=== PATIENT | female | born 1975 | race Hispanic/Latino ===

== ENCOUNTER 2018-03-19 16:44 | Observation (INO) | payer BC ==
--- OUTSIDE RECORDS SUMMARY | 2018-03-19 16:46 | XMS REPORT ---
:1975 [facility] Address [address] [place] [address] Care Team Providers Name Role Phone MICHAEL SHELLEY Unavailable Unavailable HASMUKH AMNRIQUEZ Unavailable Unavailable Problems This patient has no known problems. Allergies, Adverse Reactions, Alerts This patient has no known allergies or adverse reactions. Medications This patient has no known medications. Results Test Description Test Time Test Comments Text Results Atomic Results Result Comments CREATINE KINASE (CK), TOTAL AND MB 2016-07-02 14:51:00 Test Item Value Reference Range Comments CREATINE KINASE TOTAL (BEAKER) (test klkn=383) 38 U/L 29-200 CREATINE KINASE-MB (BEAKER) (test wjzh=627) 0.4 ng/mL 0.0-6.6 CREATINE KINASE-MB INDEX (BEAKER) (test ihcb=931) 1.1 % Effective 03/29/2014: CK-MB Reference Range ChangeNew: 0.0-6.6 Previous: 0.0- 4.9CK-MB Reference Range:<6.7 Normal6.7-10.0 Borderline>10.0 AbnormalTROPONIN [id number] 14:51:00 Test Item Value Reference Range Comments TROPONIN I (BEAKER) (test frqe=444) 0.01 ng/mL 0.00-0.03 Effective 03/29/2014: Reference Range ChangeNew: 0.00-0.03 Previous 0.00- 0.15Troponin I (TnI) levels must be interpreted in the context of the presenting symptoms and the clinical findings. Elevated TnI levels indicate myocardial damage, but are not specific for ischemic heart disease. Elevated TnI levels are seen in patients with other cardiac conditions (including myocarditis and congestive heartfailure), and slight TnI elevations occur in patients with other conditions, including sepsis, renalfailure, acidosis, acute neurological disease, and persistent tachyarrhythmia.URINALYSIS W/ [id number] 11:14:00 Test Item Value Reference Range Comments COLOR (BEAKER) (test khwy=251) Yellow CLARITY (BEAKER) (test agvb=608) Hazy SPECIFIC GRAVITY UA (BEAKER) (test 1.023 1.001-1.035 xohy=116) PH UA (BEAKER) (test wlaa=138) 6.5 5.0-8.0 PROTEIN UA (BEAKER) (test usqx=770) 10 mg/dL Negative GLUCOSE UA (BEAKER) (test qrsa=519) Negative Negative KETONES UA (BEAKER) (test oafg=184) Negative Negative BILIRUBIN UA (BEAKER) (test puhk=644) Negative Negative BLOOD UA (BEAKER) (test azns=820) Negative Negative NITRITE UA (BEAKER) (test pbkq=014) Negative Negative LEUKOCYTE ESTERASE UA (BEAKER) (test Negative Negative hmmd=157) UROBILINOGEN UA (BEAKER) (test ghzs=090) 12.0 mg/dL 0.2-1.0 RBC UA (BEAKER) (test kjax=574) 2 /HPF WBC UA (BEAKER) (test hbmf=720) 2 /HPF MUCUS (BEAKER) (test kkfs=6078) Occasional SQUAMOUS EPITHELIAL (BEAKER) (test 3 /HPF dxgz=211) SOURCE(BEAKER) (test akgg=5000) Urine, Clean Catch BASIC METABOLIC [id number] 11:05:00 Test Item Value Reference Range Comments SODIUM (BEAKER) (test 136 meq/L 136-145 fsch=995) POTASSIUM (BEAKER) (test 3.8 meq/L 3.5-5.1 zmwk=531) CHLORIDE (BEAKER) (test 101 meq/L 98-107 zafw=971) CO2 (BEAKER) (test 24 meq/L 22-29 freb=796) BLOOD UREA NITROGEN 11 mg/dL 7-21 (BEAKER) (test vxtz=483) CREATININE (BEAKER) (test 0.63 mg/dL 0.57-1.25 jofe=497) GLUCOSE RANDOM (BEAKER) 96 mg/dL 70-105 (test ovme=133) CALCIUM (BEAKER) (test 9.2 mg/dL 8.4-10.2 eimo=506) EGFR (BEAKER) (test mL/min/1.73 sq m INSUFFICIENT CLINICAL DATA hebd=1414) TO CALCULATE ESTIMATED GFR. CBC W/PLT COUNT & AUTO [id number] 11:00:00 Test Item Value Reference Range Comments WHITE BLOOD CELL COUNT (BEAKER) (test heth=055) 10.7 K/ L 4.0-10.0 RED BLOOD CELL COUNT (BEAKER) (test wudk=761) 4.80 M/ L 4.00-5.00 HEMOGLOBIN (BEAKER) (test ksgw=169) 13.3 GM/DL 12.0-15.0 HEMATOCRIT (BEAKER) (test qjjj=764) 42.6 % 36.0-45.0 MEAN CORPUSCULAR VOLUME (BEAKER) (test azwq=022) 88.9 fL 82.0-99.0 MEAN CORPUSCULAR HEMOGLOBIN (BEAKER) (test 27.7 pg 27.0-33.0 fvef=076) MEAN CORPUSCULAR HEMOGLOBIN CONC (BEAKER) (test 31.1 GM/DL 32.0-36.0 rbiq=336) RED CELL DISTRIBUTION WIDTH (BEAKER) (test 13.1 % 10.3-14.2 zuwm=534) PLATELET COUNT (BEAKER) (test atub=228) 233 K/CU MM 150-430 MEAN PLATELET VOLUME (BEAKER) (test xtdc=673) 7.8 fL 6.5-10.5 NUCLEATED RED BLOOD CELLS (BEAKER) (test 0 /100 WBC 0-0 vqzm=331) NEUTROPHILS RELATIVE PERCENT (BEAKER) (test 77 % iuzx=380) LYMPHOCYTES RELATIVE PERCENT (BEAKER) (test 14 % avcv=253) MONOCYTES RELATIVE PERCENT (BEAKER) (test 8 % tfao=679) EOSINOPHILS RELATIVE PERCENT (BEAKER) (test 1 % sqyj=927) BASOPHILS RELATIVE PERCENT (BEAKER) (test 0 % iuhr=824) NEUTROPHILS ABSOLUTE COUNT (BEAKER) (test 8.24 K/ L 1.80-8.00 vwqw=749) LYMPHOCYTES ABSOLUTE COUNT (BEAKER) (test 1.47 K/ L 1.48-4.50 hrif=840) MONOCYTES ABSOLUTE COUNT (BEAKER) (test 0.88 K/ L 0.00-1.30 zcwv=748) EOSINOPHILS ABSOLUTE COUNT (BEAKER) (test 0.08 K/ L 0.00-0.50 myja=434) BASOPHILS ABSOLUTE COUNT (BEAKER) (test 0.00 K/ L 0.00-0.20 dprf=739) [id number] 10:58:00 Test Item Value Reference Range Comments LIPASE (BEAKER) (test gahr=534) 9 U/L 8-78 PLATELET AGGREGATION: FUNCTION [id number] 10:10:00 Test Item Value Reference Range Comments WEAK ADP RESULT(BEAKER) (test < % 60-91 amhs=1317) PLATELET FUNCTION SCREEN 0-39% indicates marked platelet INTERP (BEAKER) (test dysfunction pdru=7464) [id number] Lauryn Lopez MD (electronic (BEAKER) (test pvid=6390) signature) PLATELET COUNT AGG (BEAKER) 198 K/CU MM 150-430 (test aodn=4724) Platelet Function Screen results may be falsely low with platelet counts<100, 000/cu mm.BASIC METABOLIC [id number] 08:10:00 Test Item Value Reference Range Comments SODIUM (BEAKER) (test 136 meq/L 136-145 ribv=378) POTASSIUM (BEAKER) (test 3.7 meq/L 3.5-5.1 vlde=994) CHLORIDE (BEAKER) (test 104 meq/L 98-107 jijo=573) CO2 (BEAKER) (test 24 meq/L 22-29 rjni=733) BLOOD UREA NITROGEN 14 mg/dL 7-21 (BEAKER) (test ezyk=322) CREATININE (BEAKER) (test 0.57 mg/dL 0.57-1.25 tspn=059) GLUCOSE RANDOM (BEAKER) 95 mg/dL 70-105 (test agkl=050) CALCIUM (BEAKER) (test 8.2 mg/dL 8.4-10.2 ecgt=631) EGFR (BEAKER) (test mL/min/1.73 sq m INSUFFICIENT CLINICAL DATA ppbs=6532) TO CALCULATE ESTIMATED GFR. [id number] 07:54:00 Test Item Value Reference Range Comments MAGNESIUM (BEAKER) (test exet=385) 2.0 mg/dL 1.6-2.6 HEMOGLOBIN AND [id number] 06:43:00 Test Item Value Reference Range Comments HEMOGLOBIN (BEAKER) (test hxoq=950) 11.8 GM/DL 12.0-15.0 HEMATOCRIT (BEAKER) (test arqr=648) 34.9 % 36.0-45.0 HEMOGLOBIN AND [id number] 13:04:00 Test Item Value Reference Range Comments HEMOGLOBIN (BEAKER) (test mviu=694) 11.9 GM/DL 12.0-15.0 HEMATOCRIT (BEAKER) (test omfq=473) 34.8 % 36.0-45.0 PLATELET AGGREGATION: FUNCTION [id number] 11:13:00 Test Item Value Reference Range Comments WEAK ADP < % 60-91 This is a corrected RESULT(BEAKER) (test result. Previous acih=3311) result was 0 % on 06/28/2016 at 0429 RN EMERGENCY ROOM PLATELET FUNCTION 0-39% indicates marked SCREEN INTERP (BEAKER) platelet dysfunction (test fbei=2663) [id number] Dinah Calvo MD (BEAKER) (test (electronic signature) whwm=8603) PLATELET COUNT AGG 188 K/CU MM 150-430 (BEAKER) (test hgzm=4641) PLATELET AGGREGATION: DRUG [id number] 10:56:00 Test Item Value Reference Range Comments STRONG ADP RESULT(BEAKER) (test < % 70-94 rbfu=8645) WEAK ADP RESULT(BEAKER) (test < % 60-91 hjwi=2052) ARACHADONIC ACID RESULT(BEAKER) < % 63-89 (test oyej=4365) PLATELET AGG DRUG INTERPRETATION Decreased response to ADP (BEAKER) (test itni=1501) suggest a A6G35-dqkzmbadt drug effect. PLATELET AGG DRUG INTERPRETATION Decreased response to (BEAKER) (test xxcb=504432) arachidonic acid suggests aspirin-like effect. [id number] (BEAKER) Dinah Calvo MD (test jfjb=5378) (electronic signature) PLATELET COUNT AGG (BEAKER) 153 K/CU MM 150-430 (test rpjb=5649) LIPID [id number] 04:11:00 Test Item Value Reference Range Comments TRIGLYCERIDES (BEAKER) (test qkfu=570) 95 mg/dL CHOLESTEROL (BEAKER) (test hiem=450) 149 mg/dL HDL CHOLESTEROL (BEAKER) (test gmzm=212) 36 mg/dL LDL CHOLESTEROL CALCULATED (BEAKER) (test 94 mg/dL bcio=174) Triglyceride Reference Range: Low Risk <150 Borderline 150- 199 High Risk 200-499 Very High Risk >=500Cholesterol Reference Range: Low Risk <200 Borderline 200-239 High Risk > 240HDL Cholesterol Reference Range: Low Risk >=60 High Risk <40LDL Cholesterol Reference Range: Optimal <100 Near Optimal 100-129 Borderline 130-159 High 160-189 Very High >=190BASIC METABOLIC [id number] 04:11:00 Test Item Value Reference Range Comments SODIUM (BEAKER) (test 137 meq/L 136-145 aqyl=927) POTASSIUM (BEAKER) (test 3.5 meq/L 3.5-5.1 dxfg=233) CHLORIDE (BEAKER) (test 105 meq/L 98-107 tdeq=865) CO2 (BEAKER) (test 24 meq/L 22-29 agxx=696) BLOOD UREA NITROGEN 11 mg/dL 7-21 (BEAKER) (test uthk=394) CREATININE (BEAKER) (test 0.53 mg/dL 0.57-1.25 ragq=063) GLUCOSE RANDOM (BEAKER) 102 mg/dL 70-105 (test gvfz=196) CALCIUM (BEAKER) (test 8.0 mg/dL 8.4-10.2 rhye=783) EGFR (BEAKER) (test mL/min/1.73 sq m INSUFFICIENT CLINICAL DATA yard=0773) TO CALCULATE ESTIMATED GFR. HEMOGLOBIN AND [id number] 03:55:00 Test Item Value Reference Range Comments HEMOGLOBIN (BEAKER) (test nckg=375) 11.3 GM/DL 12.0-15.0 HEMATOCRIT (BEAKER) (test jgmg=275) 33.3 % 36.0-45.0 HEMOGLOBIN AND [id number] 18:31:00 Test Item Value Reference Range Comments HEMOGLOBIN (BEAKER) (test 11.4 GM/DL 12.0-15.0 jtlo=378) HEMATOCRIT (BEAKER) (test 34.7 % 36.0-45.0 This is a corrected result. qqyq=200) Previous result was 14.4 % on 06/27/2016 at 1826 RN EMERGENCY ROOM CBC W/PLT COUNT & AUTO [id number] 15:32:00 Test Item Value Reference Range Comments WHITE BLOOD CELL COUNT (BEAKER) (test rtgd=564) 10.6 K/ L 4.0-10.0 RED BLOOD CELL COUNT (BEAKER) (test pemg=442) 4.11 M/ L 4.00-5.00 HEMOGLOBIN (BEAKER) (test lzfl=077) 12.5 GM/DL 12.0-15.0 HEMATOCRIT (BEAKER) (test buod=091) 36.5 % 36.0-45.0 MEAN CORPUSCULAR VOLUME (BEAKER) (test ogwo=211) 88.8 fL 82.0-99.0 MEAN CORPUSCULAR HEMOGLOBIN (BEAKER) (test 30.3 pg 27.0-33.0 caed=900) MEAN CORPUSCULAR HEMOGLOBIN CONC (BEAKER) (test 34.2 GM/DL 32.0-36.0 xdrj=744) RED CELL DISTRIBUTION WIDTH (BEAKER) (test 12.8 % 10.3-14.2 uupo=713) PLATELET COUNT (BEAKER) (test nxvd=527) 208 K/CU MM 150-430 MEAN PLATELET VOLUME (BEAKER) (test azic=613) 8.4 fL 6.5-10.5 NUCLEATED RED BLOOD CELLS (BEAKER) (test 0 /100 WBC 0-0 rsuf=776) NEUTROPHILS RELATIVE PERCENT (BEAKER) (test 70 % akbz=684) LYMPHOCYTES RELATIVE PERCENT (BEAKER) (test 24 % gobt=325) MONOCYTES RELATIVE PERCENT (BEAKER) (test 5 % vecf=446) EOSINOPHILS RELATIVE PERCENT (BEAKER) (test 0 % fpdz=554) BASOPHILS RELATIVE PERCENT (BEAKER) (test 0 % qnky=234) NEUTROPHILS ABSOLUTE COUNT (BEAKER) (test 7.45 K/ L 1.80-8.00 eqjm=445) LYMPHOCYTES ABSOLUTE COUNT (BEAKER) (test 2.59 K/ L 1.48-4.50 xrcf=755) MONOCYTES ABSOLUTE COUNT (BEAKER) (test 0.53 K/ L 0.00-1.30 xfoy=583) EOSINOPHILS ABSOLUTE COUNT (BEAKER) (test 0.04 K/ L 0.00-0.50 lwyr=991) BASOPHILS ABSOLUTE COUNT (BEAKER) (test 0.02 K/ L 0.00-0.20 zjpn=455) 0.00PLATELET AGGREGATION: FUNCTION [id number] 12:55:00 Test Item Value Reference Range Comments WEAK ADP < % 60-91 This is a corrected RESULT(BEAKER) (test result. Previous qzbk=6728) result was 0 % on 06/27/2016 at 1051 RN EMERGENCY ROOM PLATELET FUNCTION 0-39% indicates marked SCREEN INTERP (BEAKER) platelet dysfunction (test inho=1910) [id number] Dinah Calvo MD (BEAKER) (test (electronic signature) ubfx=9399) PLATELET COUNT AGG 228 K/CU MM 150-430 (BEAKER) (test ixgy=3259) HEMOGLOBIN [id number] 12:00:00 Test Item Value Reference Range Comments HEMOGLOBIN A1C (BEAKER) (test svgp=917) 5.2 % 4.3-6.1 HEMOGLOBIN AND [id number] 11:24:00 Test Item Value Reference Range Comments HEMOGLOBIN (BEAKER) (test tzmp=309) 11.9 GM/DL 12.0-15.0 HEMATOCRIT (BEAKER) (test jgkv=991) 35.0 % 36.0-45.0 POTASSIUM-STAT [id number] 07:54:00 Test Item Value Reference Range Comments POTASSIUM (BEAKER) (test nokc=578) 3.6 meq/L 3.6-5.5 HGB/HCT (H&H) - STAT [id number] 07:54:00 Test Item Value Reference Range Comments HEMOGLOBIN (BEAKER) (test kfyk=394) 12.3 g/dL 12.0-15.0 HEMATOCRIT (BEAKER) (test lrcr=378) 36.0 % 36.0-45.0 CBC (HEMOGRAM ONLY)2016-06-27 04:09:00 Test Item Value Reference Range Comments WHITE BLOOD CELL COUNT (BEAKER) (test azzq=953) 8.7 K/ L 4.0-10.0 RED BLOOD CELL COUNT (BEAKER) (test lknt=588) 1.78 M/ L 4.00-5.00 HEMOGLOBIN (BEAKER) (test dcvb=885) 5.4 GM/DL 12.0-15.0 HEMATOCRIT (BEAKER) (test pkwa=741) 16.1 % 36.0-45.0 MEAN CORPUSCULAR VOLUME (BEAKER) (test hjns=551) 90.7 fL 82.0-99.0 MEAN CORPUSCULAR HEMOGLOBIN (BEAKER) (test 30.6 pg 27.0-33.0 ryib=078) MEAN CORPUSCULAR HEMOGLOBIN CONC (BEAKER) (test 33.7 GM/DL 32.0-36.0 xctm=997) RED CELL DISTRIBUTION WIDTH (BEAKER) (test 12.9 % 10.3-14.2 dwjd=042) PLATELET COUNT (BEAKER) (test izpc=678) 186 K/CU MM 150-430 MEAN PLATELET VOLUME (BEAKER) (test llya=434) 8.1 fL 6.5-10.5 NUCLEATED RED BLOOD CELLS (BEAKER) (test 0 /100 WBC 0-0 cmpy=885) 0.00BASIC METABOLIC [id number] 03:49:00 Test Item Value Reference Range Comments SODIUM (BEAKER) (test 138 meq/L 136-145 dtek=858) POTASSIUM (BEAKER) (test 3.4 meq/L 3.5-5.1 wgwq=361) CHLORIDE (BEAKER) (test 112 meq/L 98-107 oynf=816) CO2 (BEAKER) (test 18 meq/L 22-29 anpb=009) BLOOD UREA NITROGEN 13 mg/dL 7-21 (BEAKER) (test xsqv=937) CREATININE (BEAKER) (test 0.59 mg/dL 0.57-1.25 fmwi=713) GLUCOSE RANDOM (BEAKER) 125 mg/dL 70-105 (test meda=486) CALCIUM (BEAKER) (test 7.1 mg/dL 8.4-10.2 lcwt=650) EGFR (BEAKER) (test mL/min/1.73 sq m INSUFFICIENT CLINICAL DATA lrhg=8715) TO CALCULATE ESTIMATED GFR. TSH/FREE T4 IF [id number] 03:31:00 Test Item Value Reference Range Comments THYROID STIMULATING HORMONE (BEAKER) (test 1.53 uIU/mL 0.35-4.94 holn=607) POTASSIUM-STAT [id number] 03:28:00 Test Item Value Reference Range Comments POTASSIUM (BEAKER) (test jmqs=179) 3.2 meq/L 3.6-5.5 [id number] 03:24:00 Test Item Value Reference Range Comments PROTIME (BEAKER) (test idyl=550) 25.6 seconds 11.7-14.7 INR (BEAKER) (test tqbr=655) 2.3 <=5.9 PARTIAL THROMBOPLASTIN TIME (BEAKER) (test 40.3 seconds 22.5-36.0 zths=822) RECOMMENDED COUMADIN/WARFARIN INR THERAPY RANGESSTANDARD DOSE: 2.0 - 3.0 Includes: PROPHYLAXIS forvenous thrombosis, systemic embolization; TREATMENT for venous thrombosis and/or pulmonary embolus.HIGH RISK: Target INR is 2.5-3.5 for patients with mechanical heart valves. SCREEN, [id number] 03: 13:00 Test Item Value Reference Range Comments TEST URINE (BEAKER) (test oala=433) Negative HGB/HCT (H&H) - STAT [id number] 03:04:00 Test Item Value Reference Range Comments HEMOGLOBIN (BEAKER) (test mxed=427) 8.0 g/dL 12.0-15.0 HEMATOCRIT (BEAKER) (test sutq=226) 24.0 % 36.0-45.0 [id number] 20:07:00 Test Item Value Reference Range Comments ACTIVATED CLOTTING TIME 239 sec TESTED AT [address] ([facility]) (test uzfp=726) [facility] [id number] 20:01:00 Test Item Value Reference Range Comments ACTIVATED CLOTTING TIME 307 sec TESTED AT [address] ([facility]) (test qked=163) [facility] [address] CREATINE KINASE (CK), TOTAL AND [id number] 19:15:00 Test Item Value Reference Range Comments CREATINE KINASE TOTAL (BEAKER) (test umun=565) 38 U/L 29-200 CREATINE KINASE-MB (BEAKER) (test roly=612) 0.9 ng/mL 0.0-6.6 CREATINE KINASE-MB INDEX (BEAKER) (test epel=987) 2.4 % Effective 03/29/2014: CK-MB Reference Range ChangeNew: 0.0-6.6 Previous: 0.0- 4.9CK-MB Reference Range:<6.7 Normal6.7-10.0 Borderline>10.0 AbnormalTROPONIN [id number] 19:15:00 Test Item Value Reference Range Comments TROPONIN I (BEAKER) (test oupd=456) 0.01 ng/mL 0.00-0.03 Effective 03/29/2014: Reference Range ChangeNew: 0.00-0.03 Previous 0.00- 0.15Troponin I (TnI) levels must be interpreted in the context of the presenting symptoms and the clinical findings. Elevated TnI levels indicate myocardial damage, but are not specific for ischemic heart disease. Elevated TnI levels are seen in patients with other cardiac conditions (including myocarditis and congestive heartfailure), and slight TnI elevations occur in patients with other conditions, including sepsis, renalfailure, acidosis, acute neurological disease, and persistent tachyarrhythmia.BASIC METABOLIC [id number] 19:14:00 Test Item Value Reference Range Comments SODIUM (BEAKER) (test 137 meq/L 136-145 qtnv=504) POTASSIUM (BEAKER) (test 3.6 meq/L 3.5-5.1 tjam=704) CHLORIDE (BEAKER) (test 106 meq/L 98-107 perb=059) CO2 (BEAKER) (test 21 meq/L 22-29 xpvu=489) BLOOD UREA NITROGEN 10 mg/dL 7-21 (BEAKER) (test xmzb=623) CREATININE (BEAKER) (test 0.60 mg/dL 0.57-1.25 pueh=058) GLUCOSE RANDOM (BEAKER) 106 mg/dL 70-105 (test byip=365) CALCIUM (BEAKER) (test 8.7 mg/dL 8.4-10.2 gqra=696) EGFR (BEAKER) (test mL/min/1.73 sq m INSUFFICIENT CLINICAL DATA xabw=5963) TO CALCULATE ESTIMATED GFR. B-TYPE NATRIURETIC FACTOR (BNP)2016-06-26 19:12:00 Test Item Value Reference Range Comments B-TYPE NATRIURETIC PEPTIDE (BEAKER) (test qdvv=298) 20 pg/mL 0-100 [id number] 19:07:00 Test Item Value Reference Range Comments MAGNESIUM (BEAKER) (test hqmy=104) 1.9 mg/dL 1.6-2.6 [id number] 18:53:00 Test Item Value Reference Range Comments PARTIAL THROMBOPLASTIN TIME (BEAKER) (test 32.0 seconds 22.5-36.0 lgqv=707) PROTHROMBIN TIME/[id number] 18:52:00 Test Item Value Reference Range Comments PROTIME (BEAKER) (test auir=133) 14.3 seconds 11.7-14.7 INR (BEAKER) (test nsjr=927) 1.1 <=5.9 RECOMMENDED COUMADIN/WARFARIN INR THERAPY RANGESSTANDARD DOSE: 2.0 - 3.0 Includes: PROPHYLAXIS forvenous thrombosis, systemic embolization; TREATMENT for venous thrombosis and/or pulmonary embolus.HIGH RISK: Target INR is 2.5-3.5 for patients with mechanical heart valves.CBC W/PLT COUNT & AUTO [id number] 18:46:00 Test Item Value Reference Range Comments WHITE BLOOD CELL COUNT (BEAKER) (test myup=762) 12.9 K/ L 4.0-10.0 RED BLOOD CELL COUNT (BEAKER) (test lzsa=021) 3.56 M/ L 4.00-5.00 HEMOGLOBIN (BEAKER) (test tmvs=721) 10.8 GM/DL 12.0-15.0 HEMATOCRIT (BEAKER) (test tsgu=307) 31.2 % 36.0-45.0 MEAN CORPUSCULAR VOLUME (BEAKER) (test veix=850) 87.8 fL 82.0-99.0 MEAN CORPUSCULAR HEMOGLOBIN (BEAKER) (test 30.5 pg 27.0-33.0 orvn=457) MEAN CORPUSCULAR HEMOGLOBIN CONC (BEAKER) (test 34.7 GM/DL 32.0-36.0 iejk=347) RED CELL DISTRIBUTION WIDTH (BEAKER) (test 12.9 % 10.3-14.2 mqjd=721) PLATELET COUNT (BEAKER) (test awro=605) 313 K/CU MM 150-430 MEAN PLATELET VOLUME (BEAKER) (test ivgl=082) 8.0 fL 6.5-10.5 NUCLEATED RED BLOOD CELLS (BEAKER) (test 0 /100 WBC 0-0 idqk=452) NEUTROPHILS RELATIVE PERCENT (BEAKER) (test 88 % qsek=668) LYMPHOCYTES RELATIVE PERCENT (BEAKER) (test 10 % shtg=109) MONOCYTES RELATIVE PERCENT (BEAKER) (test 2 % xexx=831) EOSINOPHILS RELATIVE PERCENT (BEAKER) (test 0 % fdma=651) BASOPHILS RELATIVE PERCENT (BEAKER) (test 0 % bdbj=178) NEUTROPHILS ABSOLUTE COUNT (BEAKER) (test 11.40 K/ L 1.80-8.00 ltsq=525) LYMPHOCYTES ABSOLUTE COUNT (BEAKER) (test 1.24 K/ L 1.48-4.50 ywge=583) MONOCYTES ABSOLUTE COUNT (BEAKER) (test 0.21 K/ L 0.00-1.30 ymjb=465) EOSINOPHILS ABSOLUTE COUNT (BEAKER) (test 0.03 K/ L 0.00-0.50 anup=358) BASOPHILS ABSOLUTE COUNT (BEAKER) (test 0.00 K/ L 0.00-0.20 kkvx=439) 0.00
--- OUTSIDE RECORDS SUMMARY | 2018-03-19 16:46 | XMS REPORT | Clinical Summary ---
:1975 Author Organization [facility] Address [address] [place] [address] Care Team Providers Name Role Phone Roberto Grace Michaelismael Primary Care Provider Allergies No Known Allergies Medications Medication Sig Dispensed Refills Start Date End Date Status levothyroxine Take 125 mcg by 0 Active (SYNTHROID, mouth Every LEVOTHROID) 125 MCG morning on an tablet empty stomach. prasugrel (EFFIENT) Take 1 tablet 90 tablet 0 06/29/2016 Active 10 mg Tab tablet (10 mg total) by mouth daily. aspirin 81 MG Take 1 tablet 100 tablet 3 06/29/2016 06/29/2017 chewable tablet (81 mg total) by mouth daily. atorvastatin Take 2 tablets 90 tablet 3 06/29/2016 06/29/2017 (LIPITOR) 10 MG (20 mg total) tablet by mouth nightly. Active Problems Problem Noted Date ACS (acute coronary syndrome) 06/27/2016 CAD (coronary artery disease) 06/26/2016 Family History Medical History Relation Name Comments Diabetes Maternal Grandfather Diabetes Maternal Grandmother Heart disease Maternal Grandmother Hypertension Mother Relation Name Status Comments Maternal Grandfather Maternal Grandmother Mother Social History Tobacco Use Types Packs/Day Years Used Date Never Smoker Smokeless Tobacco: Never Used Alcohol Use Drinks/Week oz/Week Comments No Sex Assigned at Date Recorded Not on file Job Start Date Occupation Industry Not on file Not on file Not on file Travel History Travel Start Travel End No recent travel history available. Last Filed Vital Signs Not on file Plan of Treatment Not on file Implants Implanted Type Area Digital Design Engineer Device Shelf Model / Identifier Expiration Serial / Date Lot Mynxgrip Vascular Closure Device Cardiovascular N/A: Groin ACCESS CLOSURE 06/11/2018 [id number] / Implanted: Qty: 1 on 06/26/2016 by Peter Bird MD / [id number] Synergy Stents-Coronary N/A: [place] [id number] / Implanted: Qty: 1 on 06/26/2016 by Peter Bird MD Coronary SCIENTIFIC / [id number] Results Not on fileafter 03/18/2017 Insurance Payer Benefit Plan / Subscriber ID Type Phone Address Group BLUE CROSS/BLUE BCBS PPO POS EPO xxxxxxxxxxxx PPO [phone] [address] [place] [address] Advance Directives For more information, please contact:[address] [phone] Code Status Date Activated Date Inactivated Comments Full Code 06/26/2016 5:30 PM 06/29/2016 7:15 PM This code status was determined by: Patient
[2018-03-19 17:05] LABS: Absolute Lymphocytes (CBC) 2.2 K/uL (0.7-4.9); Absolute Monocytes 0.6 K/uL (0.1-1.3); Absolute Neutrophil 5.1 K/uL (1.8-8.0); Basophils % 0.5 % (0-1.3); Eosinophils % 1.6 % (0-4.4); Hematocrit 37.9 % (36.0-45.0); Lymphocytes % 27.2 % (15.3-44.8); MCH 30.7 pg (27.0-35.0); MCV 90.9 fL (80-100); MPV 9.5 fL (7.6-11.3); Monocytes % 7.3 % (3.3-12.3); RBC Red Blood Cell Count 4.17 M/uL (3.86-4.86)
--- NOTE | 2018-03-19 17:08 | ER ---
Nurse's Notes [facility] Name: Lilliam Brar Age: 42 yrs Sex: Female : 1975 Arrival Date: 03/19/2018 Time: 16:49 Bed 5 Private MD: Diagnosis: Chest pain, unspecified Presentation: 03/19 16:43 Presenting complaint: EMS states: left sided sharp/stabbing chest pain started today sv around 1200 while at work. Denies SOB. BP 158/100 HR-74 RR-16 98% RA BS-89 18 G L AC. Transition of care: patient was not received from another setting of care. Onset of symptoms was March 19, 2018 at 12:00. Risk Assessment: Do you want to hurt yourself or someone else? Patient reports no desire to harm self or others. Initial Sepsis Screen: Does the patient meet any 2 criteria? No. Patient's initial sepsis screen is negative. Does the patient have a suspected source of infection? No. Patient's initial sepsis screen is negative. Care prior to arrival: IV initiated. 18 GA, in the left antecubital area, Glucose check: 89. 16:43 Method Of Arrival: EMS: [facility] sv 16:43 Acuity: JUNI 3 sv Triage Assessment: 16:43 General: Appears in no apparent distress. uncomfortable, well developed, Behavior is sv calm, cooperative, appropriate for age. Pain: Complains of pain in anterior aspect of left upper chest and left breast Pain does not radiate. Pain currently is 7 out of 10 on a pain scale. Quality of pain is described as sharp, stabbing, Pain began 1200 Is intermittent. EENT: No signs and/or symptoms were reported regarding the EENT system. Neuro: Level of Consciousness is awake, alert, obeys commands, Oriented to person, place, time, situation, Moves all extremities. Full function Speech is normal. Cardiovascular: Patient's skin is warm and dry. Rhythm is sinus rhythm. Respiratory: Airway is patent Respiratory effort is even, unlabored, Respiratory pattern is regular, symmetrical, Denies shortness of breath. GI: No signs and/or symptoms were reported involving the gastrointestinal system. : No signs and/or symptoms were reported regarding the genitourinary system. Derm: Skin is pink, warm \T\ dry. Musculoskeletal: No signs and/or symptoms reported regarding the musculoskeletal system. Historical: - Allergies: 16:54 No Known Allergies; sv - Home Meds: 16:54 Plavix Oral [Active]; Aspirin Oral [Active]; Metoprolol Tartrate Oral [Active]; sv levothyroxine oral [Active]; - PMHx: 16:54 Hypothyroidism; Hypertension; sv - PSHx: 16:54 cardiac stents(2014); sv - Immunization history:: Adult Immunizations up to date. - Social history:: Smoking status: Patient/guardian denies using tobacco, Patient/guardian denies using alcohol, street drugs. - Ebola Screening: : No symptoms or risks identified at this time. Screenin:56 Abuse screen: Denies threats or abuse. Denies injuries from another. Nutritional sv screening: No deficits noted. Tuberculosis screening: No symptoms or risk factors identified. Fall Risk None identified. Assessment: 17:05 Reassessment: Patient appears in no apparent distress at this time. No changes from sv previously documented assessment. 17:18 Reassessment: Patient appears in no apparent distress at this time. No changes from sv previously documented assessment. Patient and/or family updated on plan of care and expected duration. Pain level reassessed. Patient is alert, oriented x 3, equal unlabored respirations, skin warm/dry/pink. Dr Koehler was at the bedside speaking with pt regarding admission. 17:39 Reassessment: Patient appears in no apparent distress at this time. No changes from sv previously documented assessment. Patient and/or family updated on plan of care and expected duration. Pain level reassessed. Patient is alert, oriented x 3, equal unlabored respirations, skin warm/dry/pink. 18:00 Reassessment: Nurse to call back for report. sv Vital Signs: 16:54 BP 146 / 70; Pulse 63; Resp 18; Temp 97.7; Pulse Ox 100% ; Weight 83.46 kg; Height 5 sv ft. 3 in. (160.02 cm); Pain 7/10; 17:17 BP 134 / 90; Pulse 64 MON; Resp 16; Pulse Ox 98% on R/A; sv 17:39 BP 117 / 71; Pulse 61 MON; Resp 12; Pulse Ox 98% on R/A; sv 18:30 BP 104 / 66; Pulse 56; Resp 12; Pulse Ox 100% on R/A; sv 16:54 Body Mass Index 32.59 (83.46 kg, 160.02 cm) sv 17:17 Sinus Rhythm sv 17:39 Sinus Rhythm sv ED Course: 16:45 Initial lab(s) drawn, by me, sent to lab. Maintain EMS IV. Dressing intact. Good blood sv return noted. Site clean \T\ dry. Gauge \T\ site: 18G L AC. 16:45 phototypesetting equipment monitor on. Pulse ox on. NIBP on. sv 16:49 Patient arrived in ED. sv 16:50 Shaila Samayoa, RN is Primary Nurse. sv 16:50 Abraham Stewart PA is PHCP. jr8 16:50 Orion Ghotra MD is Attending Physician. jr8 16:53 Triage completed. sv 16:54 EKG done, by kennel technician. reviewed by Orion Ghotra MD. sm3 16:55 Arm band placed on. sv 16:56 Patient has correct armband on for positive identification. Placed in gown. Bed in low sv position. Call light in reach. Side rails up X2. 17:05 Awaiting lab results, Awaiting for x-ray. sv 17:07 Emmett Koehler DO is Hospitalizing Provider. jr8 17:10 PHCP role handed off by Abraham Stewart PA pm1 17:10 Etienne Fleming NP is PHCP. pm1 17:10 Abraham Stewart PA is PHCP. pm1 17:18 Awaiting bed assignment. sv 17:19 XRAY Chest (1 view) In Process Unspecified. EDMS 19:05 Report given to Mena MARES and Jayla RN. sv 19:47 No provider procedures requiring assistance completed. Patient admitted, IV remains in ak1 place. Patient maintains SpO2 saturation greater than 95% on room air. Administered Medications: 17:17 Drug: Aspirin Chewable Tablet 324 mg Route: PO; sv 17:39 Follow up: Response: No adverse reaction sv Outcome: 17:07 Decision to Hospitalize by Provider. jr8 19:48 Admitted to Med/surg accompanied by tech, via wheelchair, room 407, with chart, Report ak1 called to elvis 19:48 Condition: good 19:48 Instructed on the need for admit. 19:51 Patient left the ED. ak1 Signatures: Dispatcher [employer] Shaila Singh, RN RN sv Abraham Stewart PA PA jr8 Jayla Vizcarra RN RN ak1 Etienne Fleming, DHEERAJ QUALITY TESTER pm1 Aurelia Sterling 3
--- NOTE | 2018-03-19 17:08 | EDPHYS ---
Physician Documentation [facility] Name: Lilliam Brar Age: 42 yrs Sex: Female : 1975 Arrival Date: 03/19/2018 Time: 16:49 Bed 5 Private MD: ED Physician Orion Ghotra HPI: 03/19 16:56 This 42 yrs old Female presents to ER via EMS with complaints of Chest Pain. jr8 16:56 The patient or guardian reports chest pain that is located primarily in the substernal jr8 area. Onset: acutely, today. The pain does not radiate. Associated signs and symptoms: The patient has no apparent associated signs or symptoms. The chest pain is described as a pressure. Duration: The patient or guardian reports multiple episodes, that are intermittent, that wax and wane, with no pattern. Modifying factors: The symptoms are alleviated by nothing. the symptoms are aggravated by nothing. Severity of pain: At its worst the pain was moderate in the emergency department the pain has improved mildly. The patient has not recently seen a physician. Patient with history of CAD and coronary blockage with stent placement about 2 years ago. Stated that since her stent she has on/off pain but never as bad or as long of a run today . Historical: - Allergies: 16:54 No Known Allergies; sv - Home Meds: 16:54 Plavix Oral [Active]; Aspirin Oral [Active]; Metoprolol Tartrate Oral [Active]; sv levothyroxine oral [Active]; - PMHx: 16:54 Hypothyroidism; Hypertension; sv - PSHx: 16:54 cardiac stents(2014); sv - Immunization history:: Adult Immunizations up to date. - Social history:: Smoking status: Patient/guardian denies using tobacco, Patient/guardian denies using alcohol, street drugs. - Ebola Screening: : No symptoms or risks identified at this time. ROS: 16:56 Eyes: Negative for injury, pain, redness, and discharge, ENT: Negative for injury, jr8 pain, and discharge, Neck: Negative for injury, pain, and swelling, Respiratory: Negative for shortness of breath, cough, wheezing, and pleuritic chest pain, Abdomen/GI: Negative for abdominal pain, nausea, vomiting, diarrhea, and constipation, Back: Negative for injury and pain, MS/Extremity: Negative for injury and deformity, Skin: Negative for injury, rash, and discoloration, Neuro: Negative for headache, weakness, numbness, tingling, and seizure. 16:56 Cardiovascular: Positive for chest pain, Negative for edema, orthopnea, palpitations, paroxysmal nocturnal dyspnea. Exam: 16:56 Eyes: Pupils equal round and reactive to light, extra-ocular motions intact. Lids and jr8 lashes normal. Conjunctiva and sclera are non-icteric and not injected. Cornea within normal limits. Periorbital areas with no swelling, redness, or edema. ENT: Nares patent. No nasal discharge, no septal abnormalities noted. Tympanic membranes are normal and external auditory canals are clear. Oropharynx with no redness, swelling, or masses, exudates, or evidence of obstruction, uvula midline. Mucous membranes moist. Neck: Trachea midline, no thyromegaly or masses palpated, and no cervical lymphadenopathy. Supple, full range of motion without nuchal rigidity, or vertebral point tenderness. No Meningismus. Cardiovascular: Regular rate and rhythm with a normal S1 and S2. No gallops, murmurs, or rubs. Normal PMI, no JVD. No pulse deficits. Respiratory: Lungs have equal breath sounds bilaterally, clear to auscultation and percussion. No rales, rhonchi or wheezes noted. No increased work of breathing, no retractions or nasal flaring. Abdomen/GI: Soft, non-tender, with normal bowel sounds. No distension or tympany. No guarding or rebound. No evidence of tenderness throughout. Back: No spinal tenderness. No costovertebral tenderness. Full range of motion. Skin: Warm, dry with normal turgor. Normal color with no rashes, no lesions, and no evidence of cellulitis. MS/ Extremity: Pulses equal, no cyanosis. Neurovascular intact. Full, normal range of motion. Neuro: Awake and alert, GCS 15, oriented to person, place, time, and situation. Cranial nerves II-XII grossly intact. Motor strength 5/5 in all extremities. Sensory grossly intact. Cerebellar exam normal. Normal gait. Vital Signs: 16:54 BP 146 / 70; Pulse 63; Resp 18; Temp 97.7; Pulse Ox 100% ; Weight 83.46 kg; Height 5 sv ft. 3 in. (160.02 cm); Pain 7/10; 17:17 BP 134 / 90; Pulse 64 MON; Resp 16; Pulse Ox 98% on R/A; sv 17:39 BP 117 / 71; Pulse 61 MON; Resp 12; Pulse Ox 98% on R/A; sv 18:30 BP 104 / 66; Pulse 56; Resp 12; Pulse Ox 100% on R/A; sv 16:54 Body Mass Index 32.59 (83.46 kg, 160.02 cm) sv 17:17 Sinus Rhythm sv 17:39 Sinus Rhythm sv MDM: 16:50 Patient medically screened. jr8 17:06 The patient was given aspirin in the Emergency Department. Data reviewed: vital signs, jr8 nurses notes, lab test result(s), EKG, radiologic studies, plain films. Data interpreted: Pulse oximetry: on room air is 100 %. Interpretation: normal. Counseling: I had a detailed discussion with the patient and/or guardian regarding: the historical points, exam findings, and any diagnostic results supporting the discharge/admit diagnosis, lab results, radiology results, the need for further work-up and treatment in the hospital. Physician consultation: Emmett Koehler DO was called at 17:07, was contacted at 17:07, regarding admission, to the telemetry unit. consult, patient's condition, and will see patient in ED. 03/19 16:50 Order name: Basic Metabolic Panel; Complete Time: 21:48 sv 03/19 16:50 Order name: CBC with Diff; Complete Time: 21:48 sv 03/19 16:50 Order name: LFT's; Complete Time: 21:48 sv 03/19 16:50 Order name: Magnesium; Complete Time: 21:48 sv 03/19 16:50 Order name: NT PRO-BNP; Complete Time: 21:48 sv 03/19 16:50 Order name: PT-INR; Complete Time: 21:48 sv 03/19 16:50 Order name: Troponin (emerg Dept Use Only); Complete Time: 21:48 sv 03/19 16:50 Order name: XRAY Chest (1 view); Complete Time: 21:48 sv 03/19 16:50 Order name: EKG; Complete Time: 16:51 sv 03/19 16:50 Order name: Cardiac monitoring; Complete Time: 16:50 sv 03/19 16:50 Order name: EKG - Nurse/Tech; Complete Time: 16:50 sv 03/19 17:56 Order name: T4 Free; Complete Time: 21:48 EDMS 03/19 17:56 Order name: Thyroid Stimulating Hormone; Complete Time: 21:48 EDMS 03/19 16:50 Order name: IV Saline Lock; Complete Time: 16:50 sv 03/19 16:50 Order name: Labs collected and sent; Complete Time: 16:51 sv 03/19 16:50 Order name: O2 Per Protocol; Complete Time: 16:51 sv 03/19 16:50 Order name: O2 Sat Monitoring; Complete Time: 16:51 sv Administered Medications: 17:17 Drug: Aspirin Chewable Tablet 324 mg Route: PO; sv 17:39 Follow up: Response: No adverse reaction sv Disposition: 03/20 10:10 Co-signature as Attending Physician, Orion Ghotra MD I agree with the assessment and kdr plan of care. Disposition: 03/19/18 17:07 Hospitalization ordered by Emmett Koehler for Observation. Preliminary diagnosis is Chest pain, unspecified. - Bed requested for Telemetry/MedSurg (observation). - Status is Observation. ak1 - Condition is Stable. - Problem is new. - Symptoms have improved. UTI on Admission? No Signatures: Dispatcher [employer] EDMT Shaila Samayoa RN RN Brianne Benavides RN RN Orion Ghotra MD MD kdr Roszak, Josh, PA PA jr8 Jayla Vizcarra RN RN ak1 Etienne Fleming, PRACTICE ADVISOR PRACTICE ADVISOR pm1 Dinah Bernstein Corrections: (The following items were deleted from the chart) 03/19 17:06 16:56 Patient with history of CAD and coronary blockage with stent placement about 2 jr8 years ago. Stated that her pain today is more intermittent then what she felt in the past but was scared because she has not had pain since the previous sent . jr8 17:28 17:07 Hospitalization Ordered by Emmett Koehler DO for Observation. Preliminary eb diagnosis is Chest pain, unspecified. Bed requested for Telemetry/MedSurg (observation). Status is Observation. Condition is Stable. Problem is new. Symptoms have improved. UTI on Admission? No. jr8 17:54 17:28 03/19/2018 17:07 Hospitalization Ordered by Emmett Prezas DO for Observation. dw Preliminary diagnosis is Chest pain, unspecified. Bed requested for Telemetry/MedSurg (observation). Status is Observation. Condition is Stable. Problem is new. Symptoms have improved. UTI on Admission? No. eb 17:56 17:54 03/19/2018 17:07 Hospitalization Ordered by [facility] DO for Observation. dw Preliminary diagnosis is Chest pain, unspecified. Bed requested for Telemetry/MedSurg (observation). Status is Observation. Condition is Stable. Problem is new. Symptoms have improved. UTI on Admission? No. dw 19:51 17:56 03/19/2018 17:07 Hospitalization Ordered by [facility] DO for Observation. ak1 Preliminary diagnosis is Chest pain, unspecified. Bed requested for Telemetry/MedSurg (observation). Status is Observation. Condition is Stable. Problem is new. Symptoms have improved. UTI on Admission? No. dw
[2018-03-19 17:12] LABS: Protime INR 1.02
[2018-03-19] MEDS ORDERED: ONDANSETRON 4 MG/2 ML VIAL IV PRN (17:19)
[2018-03-19] MEDS ORDERED: MORPHINE 4 MG/ML SYR IV PRN (17:19)
[2018-03-19] MEDS ORDERED: ACETAMINOPHEN 500 MG TAB PO PRN (17:19)
[2018-03-19] MEDS ORDERED: ASPIRIN 81 MG CHEWABLE TABLET ONE (17:22)
[2018-03-19 17:23] LABS: ALT/SGPT 32 U/L (12-78); AST/SGOT 22 U/L (15-37); Albumin 3.5 g/dL (3.4-5.0); Alkaline Phosphatase 63 U/L (45-117); BUN Blood Urea Nitrogen 16 mg/dL (7-18); Bicarbonate 27 mmol/L (21-32); Bilirubin Direct 0.2 mg/dL (0-0.2); Bilirubin Total 0.6 mg/dL (0.2-1.0); Glucose Level 97 mg/dL (74-106); Magnesium 2.1 mg/dL (1.8-2.4); NT PRO-BNP 53 pg/mL (<125); Potassium 3.8 mmol/L (3.5-5.1); Protein, Total 7.5 g/dL (6.4-8.2); Sodium Level 138 mmol/L (136-145); Troponin (Emerg Dept Use Only) 0.02 ng/mL (0.0-0.045)
--- NOTE | 2018-03-19 17:31 | P.HP ---
Certification for Inpatient Patient admitted to: Observation With expected LOS: <2 Midnights Patient will require the following post-hospital care: None Practitioner: I am a practitioner with admitting privileges, knowledge of patient current condition, hospital course, and medical plan of care. Services: Services provided to patient in accordance with Admission requirements found in Title 42 Section 412.3 of the Code of Federal Regulations Patient History Date of Service: 03/19/18 Primary Care Provider: Dr. Contreras; Cardiology-Dr. Abdullahi Reason for admission: Chest pain History of Present Illness: 42-year-old female presented to the emergency room with chest pain. Patient with history of CAD with prior stents in 2014, hypertension, hyperlipidemia and hypothyroidism. Patient reports chest pain off and on since the placement of her stent. Today the pain was more intense. It was mainly to the sternal region and to the left side of the sternal region. There was no radiation of pain. It occurred at rest. She did not have any shortness of breath, nausea, lightheadedness, palpitations or headaches. He would last for about a min and then reoccur. She has been reporting some fatigue. Patient came to the ER for evaluation. In the ER blood pressures were slightly elevated. Initial cardiac enzymes pending at this time. No significant EKG changes noted. Due to her past history risk factors, patient was admitted for further evaluation. When I saw the patient the ER, pain had resolved. Patient does not smoke or drink. 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 Allergies No Known Drug Allergies Allergy (Verified 09/09/14 18:29) Unknown No Known Allergies Allergy (Uncoded 06/25/16 09:59) Unknown Home medications list reviewed: Yes Home Medications: Levothyroxine [Synthroid] 125 mcg PO [id number] 06/11/16 Nitroglycerin [Nitrostat] 0.4 mg SL PRN PRN 06/11/16 - Past Medical/Surgical History Diabetic: No -: Hypothyroidism -: CAD, stent 2014 -: Hypertension -: Hyperlipidemia -: C section x2 -: Tubal ligation -: Ectopic Psychosocial/ Personal History: She is . She has 2 children. 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 - Family History Mother -: Heart disease, Hypertension Father -: Diabetes Notes: Denies - Social History Smoking Status: Never smoker Alcohol use: No CD- Drugs: No Caffeine use: Yes Place of Residence: Home Review of Systems General: As per HPI Eyes: Unremarkable ENT: Unremarkable Respiratory: Unremarkable Cardiovascular: Chest Pain, As per HPI Gastrointestinal: Unremarkable Genitourinary: Unremarkable Musculoskeletal: Unremarkable Integumentary: Unremarkable Neurological: Unremarkable Lymphatics: Unremarkable Physical Examination - Physical Exam General: Alert, In no apparent distress, Oriented x3, Cooperative HEENT: Atraumatic, Normocephalic, PERRLA, Mucous membr. moist/pink Neck: Supple, No Thyromegaly Respiratory: Clear to auscultation bilaterally, Normal air movement Cardiovascular: Normal pulses, Regular rate/rhythm Gastrointestinal: Normal bowel sounds, Soft and benign, Non-distended, No tenderness, No masses, No rebound, No guarding Musculoskeletal: No erythema, No tenderness, No warmth Integumentary: No tenderness/swelling, No erythema, No warmth, No cyanosis Neurological: Normal speech, Normal strength at 5/5 x4 extr, Normal tone, Normal affect - Studies Laboratory Data (last 24 hrs) 03/19/18 16:50: WBC 8.0, Hgb 12.8, Hct 37.9, Plt Count 205 03/19/18 16:50: Sodium 138, Potassium 3.8, BUN 16, Creatinine 0.70, Glucose 97, Magnesium 2.1, Total Bilirubin 0.6, AST 22, ALT 32, Alkaline Phosphatase 63 Assessment and Plan - Plan Impression: Chest pain possible unstable angina with history of CAD and stent in 2014 Hypertension Hyperlipidemia Hypothyroidism Plan: Chest pain possible unstable angina with history of CAD and stent in 2014: Patient will be admitted. Will monitor cardiac enzymes and telemetry. Will check echocardiogram. Will consult cardiology for further evaluation. Will continue with aspirin, Effient, metoprolol, and Lipitor. Will continue with chest pain protocol. Will keep the patient NPO after midnight as the patient may require cardiac evaluation in the morning. Hypertension: Will continue with her metoprolol 50 mg daily. Will monitor and address appropriately. Hyperlipidemia: Will continue with her Lipitor 20 mg daily. Will check fasting lipid panel. Hypothyroidism: Will continue with Levoxyl 125 mcg daily. Will check tsh and free T4. Discharge Plan: Home Plan to discharge in: 24 Hours - Advance Directives Does patient have a Living Will: No Does patient have a Durable POA for Healthcare: No - Code Status/Comfort Care Code Status Assessed: Yes (Patient full code.) Time Spent Managing Pts Care (In Minutes): 55
[2018-03-19] MEDS ORDERED: NITROGLYCERIN 0.4 MG/TAB SL PRN (17:37)
--- NOTE | 2018-03-19 17:47 | RAD REPORT ---
EXAM DESCRIPTION: RAD - Chest Single View - 03/19/2018 5:20 pm CLINICAL HISTORY: Left-sided chest pain COMPARISON: September 2014 TECHNIQUE: AP portable chest image was obtained 1718 hours . FINDINGS: Lungs are clear. Heart size is upper normal. Vasculature within normal limits. Heart size has increased from the comparison. No measurable pleural effusion and no pneumothorax. No acute bony abnormality seen. No acute aortic findings suspected. IMPRESSION: No acute lung parenchymal process. Mild cardiomegaly increased from 2015.
[2018-03-19 17:56] LABS: Thyroid Stimulating Hormone 3.38 uIU/mL (0.360-3.740)
[2018-03-19 20:36] VITALS: BMI 37.5
[2018-03-19] MEDS ORDERED: ATORVASTATIN 20 MG TAB PO SCH (21:00)
[2018-03-19] MEDS: ENOXAPARIN 40 MG/0.4 ML SQ SCH (21:27)
[2018-03-19 22:49] LABS: CKMB Creatine Kinase MB 1.8 ng/mL (0.3-3.6); Troponin I 0.02 ng/mL (0.0-0.045)
[2018-03-19 23:00] LABS: Urine Appearance CLEAR; Urine Bilirubin NEGATIVE (NEG); Urine Blood NEGATIVE (NEG); Urine Color YELLOW; Urine Glucose NEGATIVE (NEG); Urine Protein NEGATIVE (NEG); Urine Urobilinogen 0.2 mg/dL (0.2-1.0); Urine pH 6.5 (5.0-7.0)
[2018-03-19 23:09] LABS: Urine Microscopic Reflex NO UMIC
[2018-03-20 04:35] VITALS: O2SAT 98
[2018-03-20 05:33] LABS: BUN Blood Urea Nitrogen 14 mg/dL (7-18); Bicarbonate 26 mmol/L (21-32); Glucose Level 88 mg/dL (74-106); Magnesium 2.1 mg/dL (1.8-2.4); Potassium 3.4 mmol/L (3.5-5.1); Sodium Level 139 mmol/L (136-145)
[2018-03-20 05:39] LABS: CKMB Creatine Kinase MB 1.4 ng/mL (0.3-3.6); Creatine Phosphokinase 79 U/L (26-192); Troponin I < 0.02 ng/mL (0.0-0.045)
[2018-03-20 05:40] LABS: Absolute Lymphocytes (CBC) 2.2 K/uL (0.7-4.9); Absolute Monocytes 0.5 K/uL (0.1-1.3); Absolute Neutrophil 3.7 K/uL (1.8-8.0); Basophils % 0.5 % (0-1.3); Hematocrit 36.6 % (36.0-45.0); Lymphocytes % 33.7 % (15.3-44.8); MCH 31.7 pg (27.0-35.0); MCV 90.7 fL (80-100); MPV 9.7 fL (7.6-11.3); Monocytes % 7.6 % (3.3-12.3); RBC Red Blood Cell Count 4.03 M/uL (3.86-4.86)
[2018-03-20] MEDS ORDERED: LEVOTHYROXINE SOD 0.125 MG TAB PO SCH (06:00)
--- NOTE | 2018-03-20 07:09 | EKG ---
Test Date: 2018-03-19 Test Time: 16:47:00 [place]: OLIVIA MEASUREMENT RESULTS: Intervals: Rate: 58 VA: 140 QRSD: 86 QT: 422 QTc: 414 [place]: P: 35 VA: 140 QRS: 31 T: 23 INTERPRETIVE STATEMENTS: Sinus bradycardia Cannot rule out Anterior infarct, age undetermined Abnormal ECG Compared to ECG 06/25/2016 10:18:55 Myocardial infarct finding now present Sinus rhythm no longer present Electronically Signed On 03-20-18 07:07:05 LOGGING ASSISTANT by [place]
[2018-03-20] MEDS ORDERED: PANTOPRAZOLE 40MG TABLET PO SCH (07:30)
[2018-03-20] MEDS ORDERED: METOPROLOL TAR 50 MG TAB PO SCH (09:00)
[2018-03-20] MEDS ORDERED: ASPIRIN EC 81 MG TAB PO SCH (09:00)
[2018-03-20] MEDS ORDERED: PRASUGREL (EFFIENT) 10 MG TAB PO SCH (09:00)
[2018-03-20] MEDS: POTASSIUM 25 MEQ EFFERV TAB PO ONE ×2 (10:00→12:11)
--- NOTE | 2018-03-20 10:12 | P.DS ---
Admission Date: 03/19/18 Discharge Date: 03/20/18 Primary Care Provider: Dr. Contreras; Cardiology-Dr. Abdullahi Disposition: ROUTINE DISCHARGE Discharge Condition: GOOD Reason for Admission: Chest pain Consultations: Cardiology-Dr. Ramirez Procedures: Medical Problem List: Chest pain possible unstable angina with history of CAD and stent in 2014 Hypertension Hyperlipidemia Hypothyroidism Obesity BMI 37 Brief History of Present Illness: 42-year-old female presented to the emergency room with chest pain. Patient with history of CAD with prior stents in 2014, hypertension, hyperlipidemia and hypothyroidism. Patient reports chest pain off and on since the placement of her stent. Today the pain was more intense. It was mainly to the sternal region and to the left side of the sternal region. There was no radiation of pain. It occurred at rest. She did not have any shortness of breath, nausea, lightheadedness, palpitations or headaches. He would last for about a min and then reoccur. She has been reporting some fatigue. Patient came to the ER for evaluation. In the ER blood pressures were slightly elevated. Initial cardiac enzymes pending at this time. No significant EKG changes noted. Due to her past history risk factors, patient was admitted for further evaluation. When I saw the patient the ER, pain had resolved. Patient does not smoke or drink. 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 Hospital Course: Patient presented with chest pain. Patient evaluated in the hospital. No significant EKG changes noted. Cardiac enzymes unremarkable. Patient with history of CAD and stents in 2014. Patient evaluated by Cardiology. Echocardiogram obtained. No cardiac intervention recommended at this time. At discharge patient will continue with aspirin 81 mg daily, Effient 10 mg daily, metoprolol XL 50 mg daily, and Lipitor 20 mg daily. Recommendation is for the patient follow up with cardiology as an outpatient to further monitor and address. Patient has hypertension. Blood pressure slightly. Medication adjusted. At discharge she will continue with metoprolol XL 50 mg daily. Recommendation is to maintain blood pressures less 150/80. If BP is below 100 sys then she will need to decrease medication-Metoprolol to 25 mg daily. Further adjustment can be done by her PCP or cardiology Patient has hyperlipidemia. Lipids appear controlled. At discharge she will continue with Lipitor 20 mg daily. Patient has hypothyroidism. Tsh within normal range. At discharge she will continue with Levoxyl 125 mcg daily. Vital Signs/Physical Exam: Temp Pulse Resp BP Pulse Ox 97.5 F 54 18 107/53 L 97 03/20/18 08:00 03/20/18 08:00 03/20/18 08:00 03/20/18 08:00 03/20/18 08:00 General: Alert, In no apparent distress, Oriented x3, Cooperative HEENT: Atraumatic, Mucous membr. moist/pink Neck: Supple Respiratory: Clear to auscultation bilaterally, Normal air movement Cardiovascular: Normal pulses, Regular rate/rhythm Gastrointestinal: Normal bowel sounds, Soft and benign, Non-distended, No tenderness, No masses, No rebound, No guarding Musculoskeletal: No erythema, No tenderness, No warmth Integumentary: No tenderness/swelling, No erythema, No warmth, No cyanosis Neurological: Normal speech, Normal strength at 5/5 x4 extr, Normal tone, Normal affect Lymphatics: No axilla or inguinal lymphadenopathy Laboratory Data at Discharge: WBC 6.5 K/uL (4.3-10.9) D 03/20/18 04:55 Hgb 12.8 g/dL (12.0-15.0) 03/20/18 04:55 Hct 36.6 % (36.0-45.0) 03/20/18 04:55 Plt Count 196 K/uL (152-406) 03/20/18 04:55 PT 12.0 SECONDS (9.5-12.5) 03/19/18 16:50 INR 1.02 03/19/18 16:50 Sodium 139 mmol/L (136-145) 03/20/18 04:55 Potassium 3.4 mmol/L (3.5-5.1) L 03/20/18 04:55 BUN 14 mg/dL (7-18) 03/20/18 04:55 Creatinine 0.40 mg/dL (0.55-1.3) L 03/20/18 04:55 Glucose 88 mg/dL (74-106) 03/20/18 04:55 Magnesium 2.1 mg/dL (1.8-2.4) 03/20/18 04:55 Total Bilirubin 0.6 mg/dL (0.2-1.0) 03/19/18 16:50 AST 22 U/L (15-37) 03/19/18 16:50 ALT 32 U/L (12-78) 03/19/18 16:50 Alkaline Phosphatase 63 U/L (45-117) 03/19/18 16:50 Troponin I < 0.02 ng/mL (0.0-0.045) 03/20/18 04:55 Triglycerides 148 mg/dL (<150) 03/20/18 04:55 Cholesterol 103 mg/dL (<200) 03/20/18 04:55 HDL Cholesterol 35 mg/dL (40-60) L 03/20/18 04:55 Cholesterol/HDL Ratio 2.94 03/20/18 04:55 Home Medications: Aspirin 81 mg PO DAILY 03/19/18 Atorvastatin Calcium 20 mg PO DAILY 03/19/18 Levothyroxine [Synthroid*] 125 mcg PO DAILY 03/19/18 Prasugrel HCl 10 mg PO DAILY 03/19/18 Metoprolol Succinate 50 mg PO DAILY #30 tab.er.24h 03/20/18 New Medications: Metoprolol Succinate 50 mg PO DAILY #30 tab.er.24h Patient Discharge Instructions: 1. Patient will need a follow up with a PCP in 1 week to follow up this hospitalization. 2. Patient presented with chest pain. Patient evaluated in the hospital. No significant EKG changes noted. Cardiac enzymes unremarkable. Patient with history of CAD and stents in 2014. Patient evaluated by Cardiology. Echocardiogram obtained. No cardiac intervention recommended at this time. At discharge patient will continue with aspirin 81 mg daily, Effient 10 mg daily, metoprolol XL 50 mg daily, and Lipitor 20 mg daily. Recommendation is for the patient follow up with cardiology as an outpatient to further monitor and address. 3. Patient has hypertension. Blood pressure slightly. Medication adjusted. At discharge she will continue with metoprolol XL 50 mg daily. Recommendation is to maintain blood pressures less 150/80. Further adjustment can be done by her PCP or cardiology. 4. Patient has hyperlipidemia. Lipids appear controlled. At discharge she will continue with Lipitor 20 mg daily. 5. Patient has hypothyroidism. Tsh within normal range. At discharge she will continue with Levoxyl 125 mcg daily. Diet: AHA Activity: Ad ana Followup: South Ramirez MD [ACTIVE - CAN ADMIT] - Roberto Grace MD [ACTIVE - CAN ADMIT] - Time spent managing pt's care (in minutes): 55
[2018-03-20] MEDS: ENOXAPARIN 40 MG/0.4 ML SQ SCH (11:19)
[2018-03-20 12:14] VITALS: BP 105/55
[2018-03-20] MEDS ORDERED: POTASSIUM CL SA 10 MEQ TAB PO ONE (13:07)
--- NOTE | 2018-03-20 13:07 | CON ---
Date of Consultation: 03/20/[address] patient admitted to Dr. Koehler' on 03/19/2018. Reason For Consultation: Chest pain. History Of Present Illness: Ms. Bryant is 42 years old, had a coronary stent in [address] Brannon Vergara. She has a history of hypertension, hypothyroidism. She came in with sharp chest pain, anter ior chest area, without any nausea, vomiting, diaphoresis, shortness of breath, PND, orthopnea, pedal edema, palpitations, or syncope. The patient stated that she was very anxious when that happened be cause of stress at work. Symptoms lasted almost for a day, then she finally decided to come to the e mergency room, where she was found to have a normal EKG, normal CPK-MB and troponin. She had low pot assium, possibly secondary to hyperventilation. She had low calcium. She is asymptomatic now. Allergies: SHE IS ALLERGIC TO NO MEDICATION. Review of Systems: Negative. Social History: Negative. Family History: Negative. Medications: At home include aspirin, Effient, Lipitor, metoprolol, and Synthroid. Physical Examination: General: Ms. Bryant is very pleasant, had no acute distress. Vital signs: Stable. Afebrile. Sinus rhythm. HEENT: Negative. Neck: Supple without bruit, lymphadenopathy, JVD, or thyromegaly. Chest: Clear to auscultation and percussion. Cardiac: Revealed a regular rhythm and rate without any murmurs, gallops, or rubs. Abdomen: Benign. Extremities: Revealed no clubbing, cyanosis, or edema. Diagnostic Data: As stated earlier. Impression And Plan: Atypical chest pain, most likely musculoskeletal. May have been exacerbated by hypokalemia. She was under stress and she herself feels like it was more of an anxiety attack. Cer tainly could be gastric. I doubt this is cardiac. She has had a stress test in our office within last year according to her that was negative. There is an echocardiogram pending. If that is norm al, I think she can go home whenever it is okay with Dr. Koehler and I will arrange for her to have ap pointment with the hospitalist. Her blood pressure is well controlled. Her dyslipidemia is well con trolled, and her hypothyroid is well controlled. NB/MODL Voice ID: [id number] Report ID: [id number]
[2018-03-20 13:39] VITALS: TEMP 97.9
[2018-03-20] MEDS ORDERED: INFLUENZA VACCINE (for 3y+) 0.5 ML DOSE IMVAC ONE (14:00)
--- NOTE | 2018-03-22 19:12 | CON ---
Date of Consultation: 03/20/[address] Koehler on 03/19/2018. I saw the patient on 03/20/2018. Reason For Consultation: Chest pain. History Of Present Illness: Ms. Bryant is only 42, had a history of stent in [address] Peter tiwari. Has a history of hypertension and hypothyroidism. Came in with chest pain that is sharp, stab binh, pleuritic type. No nausea, vomiting, diaphoresis, PND, orthopnea, palpitations, or syncope. S he has significant anxiety, and she admits to that. Denies nausea, vomiting, diaphoresis. Allergies: NONE. Review of Systems: Negative. Social History: Negative. Family History: Noncontributory. Medications: At home include aspirin, Effient, Lipitor, metoprolol, and Synthroid. Physical Examination: Vital Signs: Stable. Afebrile. HEENT: Negative. Neck: Supple with no bruit. Chest: Clear. Cardiac: Reveals regular rhythm and rate. No murmurs, gallops, or rubs. Abdomen: Benign. Extremities: Revealed no clubbing, cyanosis, or edema. Diagnostic Data: Her CPK-MB and troponin were negative. Potassium was 3.4. Calcium was 8.1. Impression And Plan: Atypical chest pain in a patient with history of coronary artery disease, statu s post stent in 2014. Had not had a stress test for quite some time. She is ruled out. I feel comf ortable with her going home on her home medication. Increase the metoprolol p.r.n. Schedule for an outpatient stress test. Her blood pressure is fairly well controlled and her hypothyroidism is well controlled on Synthroid. She has dyslipidemia, well controlled on Lipitor. Her potassium needs to b e corrected. Her calcium need to be addressed. MARK/NGUYEN Voice ID: [id number] Report ID: [id number]
--- NOTE | 2018-03-23 07:29 | ECHO ---
HEIGHT: 5 ft 1 in WEIGHT: 198 lb 11.2 oz DATE OF STUDY: 03/20/[address]: Emmett Koehler DO 2-DIMENSIONAL: YES M.MODE: YES DOPPLER: YES COLOR FLOW: YES TDS: NO PORTABLE: NO DEFINITY: NO BUBBLE STUDY: NO DIAGNOSIS: CHEST PAIN, HISTORY OF CAD CARDIAC HISTORY: CATHERIZATION: YES SURGERY: NO PROSTHETIC VALVE: NO PACEMAKER: NO MEASUREMENTS (cm) DIASTOLIC (NORMALS) SYSTOLIC (NORMALS) IVSd 0.9 (0.6-1.2) LA Diam 3.3 (1.9-4.0) LVEF 75% LVIDd 4.5 (3.5-5.7) LVIDs 2.6 (2.0-3.5) %FS 43% LVPWd 0.9 (0.6-1.2) Ao Diam 2.4 (2.0-3.7) 2 DIMENSIONAL ASSESSMENT: RIGHT ATRIUM: NORMAL LEFT ATRIUM: NORMAL RIGHT VENTRICLE: NORMAL LEFT VENTRICLE: NORMAL TRICUSPID VALVE: NORMAL MITRAL VALVE: NORMAL PULMONIC VALVE: NORMAL AORTIC VALVE: NORMAL PERICARDIAL EFFUSION: NONE AORTIC ROOT: NORMAL LEFT VENTRICULAR WALL MOTION: NORMAL DOPPLER/COLOR FLOW: NORMAL COMMENTS: NORMAL 2D ECHOCARDIOGRAM WITH DOPPLER. NO WALL MOTION ABNORMALITY. NO EFFUSION. TECHNOLOGIST: Sherif RUTHERFORD
== END 2018-03-20 15:03 | disposition home or self-care (01) ==
LOC: ER 16:44 → ERHOLD 17:09 → 4TH 19:44
PROVIDERS: ADMIT Family Medicine; ATTEND Family Medicine
DX: R07.89 Other chest pain (principal); I25.10 Atherosclerotic heart disease of native coronary artery without angina pectoris; Z95.5 Presence of coronary angioplasty implant and graft; I10 Essential (primary) hypertension; E78.5 Hyperlipidemia, unspecified; E03.9 Hypothyroidism, unspecified; E66.9 Obesity, unspecified; Z68.37 Body mass index [BMI] 37.0-37.9, adult
CPT/HCPCS: 36415; 71045; 80048; 80061; 80076; 81003; 82550; 82553; 83735; 83880; 84439; 84443; 84484; 85025; 85610; 93005; 93306; 99285; G0378; J1650

== ENCOUNTER 2018-06-16 07:02 | Emergency (ER) | payer BC ==
--- OUTSIDE RECORDS SUMMARY | 2018-06-16 07:05 | XMS REPORT | Clinical Summary ---
:1975 Author Organization [facility] Address [address] [place] [address] Care Team Providers Name Role Phone Roberto [...] Not on file Implants Implanted Type Area Radio Board Operator Device Shelf Model / Identifier Expiration Serial / Date Lot Mynxgrip Vascular Closure Device Cardiovascular N/A: Groin ACCESS CLOSURE 06/11/2018 [id number] / Implanted: Qty: 1 on 06/26/2016 by Peter Bird MD / [id number] Synergy Stents-Coronary N/A: [place] [id number] / Implanted: Qty: 1 on 06/26/2016 by Peter Bird MD Coronary SCIENTIFIC / [id number] Results Not on fileafter 06/15/2017 Insurance Payer Benefit Plan / Subscriber ID Type Phone Address Group BLUE CROSS/BLUE [employer]BS PPO POS EPO xxxxxxxxxxxx PPO [phone] [address] [place] [address] Advance Directives For more information, please contact:[address] [phone] Code Status Date Activated Date Inactivated Comments Full Code 06/26/2016 5:30 PM 06/29/2016 7:15 PM This code status was determined by: Patient
--- OUTSIDE RECORDS SUMMARY | 2018-06-16 07:05 | XMS REPORT ---
:1975 [facility] Address [address] [place] [address] Care Team Providers Name Role Phone MICHAEL SHELLEY Unavailable Unavailable HASMUKH MANRIQUEZ Unavailable Unavailable Problems This patient has no known problems. Allergies, Adverse Reactions, Alerts This patient has no known allergies or adverse reactions. Medications This patient has no known medications. Results Test Description Test Time Test Comments Text Results Atomic Results Result Comments CREATINE KINASE (CK), TOTAL AND MB 2016-07-02 14:51:00 Test Item Value Reference Range Comments CREATINE KINASE TOTAL (BEAKER) (test ofra=322) 38 U/L 29-200 CREATINE KINASE-MB (BEAKER) (test abbo=804) 0.4 ng/mL 0.0-6.6 CREATINE KINASE-MB INDEX (BEAKER) (test gchd=107) 1.1 % Effective 03/29/2014: CK-MB Reference Range ChangeNew: 0.0-6.6 Previous: 0.0- 4.9CK-MB Reference Range:<6.7 Normal6.7-10.0 Borderline>10.0 AbnormalTROPONIN [id number] 14:51:00 Test Item Value Reference Range Comments TROPONIN I (BEAKER) (test zxny=114) 0.01 ng/mL 0.00-0.03 Effective 03/29/2014: Reference Range [...] acute neurological disease, and persistent tachyarrhythmia.URINALYSIS W/ [id number] 11:14:00 Test Item Value Reference Range Comments COLOR (BEAKER) (test qnia=669) Yellow CLARITY (BEAKER) (test qemk=887) Hazy SPECIFIC GRAVITY UA (BEAKER) (test 1.023 1.001-1.035 bpzu=755) PH UA (BEAKER) (test bmtd=523) 6.5 5.0-8.0 PROTEIN UA (BEAKER) (test dmij=374) 10 mg/dL Negative GLUCOSE UA (BEAKER) (test xfuk=716) Negative Negative KETONES UA (BEAKER) (test zluq=194) Negative Negative BILIRUBIN UA (BEAKER) (test drve=355) Negative Negative BLOOD UA (BEAKER) (test aopf=335) Negative Negative NITRITE UA (BEAKER) (test jwfm=914) Negative Negative LEUKOCYTE ESTERASE UA (BEAKER) (test Negative Negative vugd=718) UROBILINOGEN UA (BEAKER) (test zdam=062) 12.0 mg/dL 0.2-1.0 RBC UA (BEAKER) (test jrmu=315) 2 /HPF WBC UA (BEAKER) (test xumu=848) 2 /HPF MUCUS (BEAKER) (test gizq=8971) Occasional SQUAMOUS EPITHELIAL (BEAKER) (test 3 /HPF pbls=822) SOURCE(BEAKER) (test ufpm=3793) Urine, Clean Catch BASIC METABOLIC [id number] 11:05:00 Test Item Value Reference Range Comments SODIUM (BEAKER) (test 136 meq/L 136-145 qzxw=728) POTASSIUM (BEAKER) (test 3.8 meq/L 3.5-5.1 nabu=895) CHLORIDE (BEAKER) (test 101 meq/L 98-107 dlsp=164) CO2 (BEAKER) (test 24 meq/L 22-29 mrug=584) BLOOD UREA NITROGEN 11 mg/dL 7-21 (BEAKER) (test yopy=826) CREATININE (BEAKER) (test 0.63 mg/dL 0.57-1.25 rbfp=123) GLUCOSE RANDOM (BEAKER) 96 mg/dL 70-105 (test wbnf=425) CALCIUM (BEAKER) (test 9.2 mg/dL 8.4-10.2 pviq=965) EGFR (BEAKER) (test mL/min/1.73 sq m INSUFFICIENT CLINICAL DATA bicu=8247) TO CALCULATE ESTIMATED GFR. CBC W/PLT COUNT & AUTO [id number] 11:00:00 Test Item Value Reference Range Comments WHITE BLOOD CELL COUNT (BEAKER) (test iidb=365) 10.7 K/ L 4.0-10.0 RED BLOOD CELL COUNT (BEAKER) (test vlnr=910) 4.80 M/ L 4.00-5.00 HEMOGLOBIN (BEAKER) (test tnvj=576) 13.3 GM/DL 12.0-15.0 HEMATOCRIT (BEAKER) (test mezv=050) 42.6 % 36.0-45.0 MEAN CORPUSCULAR VOLUME (BEAKER) (test iewt=034) 88.9 fL 82.0-99.0 MEAN CORPUSCULAR HEMOGLOBIN (BEAKER) (test 27.7 pg 27.0-33.0 emyb=964) MEAN CORPUSCULAR HEMOGLOBIN CONC (BEAKER) (test 31.1 GM/DL 32.0-36.0 kqlj=704) RED CELL DISTRIBUTION WIDTH (BEAKER) (test 13.1 % 10.3-14.2 lmwv=915) PLATELET COUNT (BEAKER) (test qlrc=653) 233 K/CU MM 150-430 MEAN PLATELET VOLUME (BEAKER) (test srfm=054) 7.8 fL 6.5-10.5 NUCLEATED RED BLOOD CELLS (BEAKER) (test 0 /100 WBC 0-0 tfgg=679) NEUTROPHILS RELATIVE PERCENT (BEAKER) (test 77 % lrwj=649) LYMPHOCYTES RELATIVE PERCENT (BEAKER) (test 14 % adld=328) MONOCYTES RELATIVE PERCENT (BEAKER) (test 8 % xucf=205) EOSINOPHILS RELATIVE PERCENT (BEAKER) (test 1 % yrix=750) BASOPHILS RELATIVE PERCENT (BEAKER) (test 0 % wkhy=516) NEUTROPHILS ABSOLUTE COUNT (BEAKER) (test 8.24 K/ L 1.80-8.00 ocwe=421) LYMPHOCYTES ABSOLUTE COUNT (BEAKER) (test 1.47 K/ L 1.48-4.50 vdik=568) MONOCYTES ABSOLUTE COUNT (BEAKER) (test 0.88 K/ L 0.00-1.30 rihm=113) EOSINOPHILS ABSOLUTE COUNT (BEAKER) (test 0.08 K/ L 0.00-0.50 sqvb=708) BASOPHILS ABSOLUTE COUNT (BEAKER) (test 0.00 K/ L 0.00-0.20 tbwd=872) [id number] 10:58:00 Test Item Value Reference Range Comments LIPASE (BEAKER) (test ntsh=070) 9 U/L 8-78 PLATELET AGGREGATION: FUNCTION [id number] 10:10:00 Test Item Value Reference Range Comments WEAK ADP RESULT(BEAKER) (test < % 60-91 okhr=8937) PLATELET FUNCTION SCREEN 0-39% indicates marked platelet INTERP (BEAKER) (test dysfunction xecf=6122) [id number]-[id number] Lauryn Lopez MD (electronic (BEAKER) (test zdsu=6031) signature) PLATELET COUNT AGG (BEAKER) 198 K/CU MM 150-430 (test wsud=6548) Platelet Function Screen results may be falsely low with platelet counts<100, 000/cu mm.BASIC METABOLIC [id number] 08:10:00 Test Item Value Reference Range Comments SODIUM (BEAKER) (test 136 meq/L 136-145 ehjo=212) POTASSIUM (BEAKER) (test 3.7 meq/L 3.5-5.1 jleb=879) CHLORIDE (BEAKER) (test 104 meq/L 98-107 nkle=463) CO2 (BEAKER) (test 24 meq/L 22-29 gqgs=227) BLOOD UREA NITROGEN 14 mg/dL 7-21 (BEAKER) (test jzig=798) CREATININE (BEAKER) (test 0.57 mg/dL 0.57-1.25 jzla=312) GLUCOSE RANDOM (BEAKER) 95 mg/dL 70-105 (test ujkr=903) CALCIUM (BEAKER) (test 8.2 mg/dL 8.4-10.2 fifm=561) EGFR (BEAKER) (test mL/min/1.73 sq m INSUFFICIENT CLINICAL DATA zzde=6338) TO CALCULATE ESTIMATED GFR. [id number] 07:54:00 Test Item Value Reference Range Comments MAGNESIUM (BEAKER) (test maer=651) 2.0 mg/dL 1.6-2.6 HEMOGLOBIN AND [id number] 06:43:00 Test Item Value Reference Range Comments HEMOGLOBIN (BEAKER) (test kcxr=023) 11.8 GM/DL 12.0-15.0 HEMATOCRIT (BEAKER) (test sfzd=473) 34.9 % 36.0-45.0 HEMOGLOBIN AND [id number] 13:04:00 Test Item Value Reference Range Comments HEMOGLOBIN (BEAKER) (test vrmc=367) 11.9 GM/DL 12.0-15.0 HEMATOCRIT (BEAKER) (test tidm=230) 34.8 % 36.0-45.0 PLATELET AGGREGATION: FUNCTION [id number] 11:13:00 Test Item Value Reference Range Comments WEAK ADP < % 60-91 This is a corrected RESULT(BEAKER) (test result. 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 PLATELET FUNCTION 0-39% indicates marked SCREEN INTERP (BEAKER) platelet dysfunction (test foyr=0133) [id number] Dinah Calvo MD (BEAKER) (test (electronic signature) ndaz=5479) PLATELET COUNT AGG 188 K/CU MM 150-430 (BEAKER) (test dzxg=6245) PLATELET AGGREGATION: DRUG [id number] 10:56:00 Test Item Value Reference Range Comments STRONG ADP RESULT(BEAKER) (test < % 70-94 vigu=6711) WEAK ADP RESULT(BEAKER) (test < % 60-91 saps=6150) ARACHADONIC ACID RESULT(BEAKER) < % 63-89 (test hsmz=6456) PLATELET AGG DRUG INTERPRETATION Decreased response to ADP (BEAKER) (test ajeh=8078) suggest a C1W99-jyrnypvmr drug effect. PLATELET AGG DRUG INTERPRETATION Decreased response to (BEAKER) (test ijus=877144) arachidonic acid suggests aspirin-like effect. [id number] (BEAKER) Dinah Calvo MD (test bhht=6877) (electronic signature) PLATELET COUNT AGG (BEAKER) 153 K/CU MM 150-430 (test ottq=1668) LIPID [id number] 04:11:00 Test Item Value Reference Range Comments TRIGLYCERIDES (BEAKER) (test obds=894) 95 mg/dL CHOLESTEROL (BEAKER) (test vghe=410) 149 mg/dL HDL CHOLESTEROL (BEAKER) (test aqix=382) 36 mg/dL LDL CHOLESTEROL CALCULATED (BEAKER) (test 94 mg/dL pljs=143) Triglyceride Reference Range: Low Risk <150 Borderline 150- 199 High Risk 200-499 Very High Risk >=500Cholesterol Reference Range: Low Risk <200 Borderline 200-239 High Risk > 240HDL Cholesterol Reference Range: Low Risk >=60 High Risk <40LDL Cholesterol Reference Range: Optimal <100 Near Optimal 100-129 Borderline 130-159 High 160-189 Very High >=190BASIC METABOLIC [id number] 04:11:00 Test Item Value Reference Range Comments SODIUM (BEAKER) (test 137 meq/L 136-145 wghl=579) POTASSIUM (BEAKER) (test 3.5 meq/L 3.5-5.1 xyvb=096) CHLORIDE (BEAKER) (test 105 meq/L 98-107 dzwx=248) CO2 (BEAKER) (test 24 meq/L 22-29 chzo=899) BLOOD UREA NITROGEN 11 mg/dL 7-21 (BEAKER) (test vyrh=028) CREATININE (BEAKER) (test 0.53 mg/dL 0.57-1.25 wija=004) GLUCOSE RANDOM (BEAKER) 102 mg/dL 70-105 (test xkkp=845) CALCIUM (BEAKER) (test 8.0 mg/dL 8.4-10.2 zhqm=143) EGFR (BEAKER) (test mL/min/1.73 sq m INSUFFICIENT CLINICAL DATA ctud=7396) TO CALCULATE ESTIMATED GFR. HEMOGLOBIN AND [id number] 03:55:00 Test Item Value Reference Range Comments HEMOGLOBIN (BEAKER) (test iwba=944) 11.3 GM/DL 12.0-15.0 HEMATOCRIT (BEAKER) (test sxid=216) 33.3 % 36.0-45.0 HEMOGLOBIN AND [id number] 18:31:00 Test Item Value Reference Range Comments HEMOGLOBIN (BEAKER) (test 11.4 GM/DL 12.0-15.0 wgto=996) HEMATOCRIT (BEAKER) (test 34.7 % 36.0-45.0 This is a corrected result. 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 CBC W/PLT COUNT & AUTO [id number] 15:32:00 Test Item Value Reference Range Comments WHITE BLOOD CELL COUNT (BEAKER) (test riuu=199) 10.6 K/ L 4.0-10.0 RED BLOOD CELL COUNT (BEAKER) (test ohbr=687) 4.11 M/ L 4.00-5.00 HEMOGLOBIN (BEAKER) (test zamv=752) 12.5 GM/DL 12.0-15.0 HEMATOCRIT (BEAKER) (test ptvx=791) 36.5 % 36.0-45.0 MEAN CORPUSCULAR VOLUME (BEAKER) (test grsg=834) 88.8 fL 82.0-99.0 MEAN CORPUSCULAR HEMOGLOBIN (BEAKER) (test 30.3 pg 27.0-33.0 dnrj=757) MEAN CORPUSCULAR HEMOGLOBIN CONC (BEAKER) (test 34.2 GM/DL 32.0-36.0 kvsy=741) RED CELL DISTRIBUTION WIDTH (BEAKER) (test 12.8 % 10.3-14.2 varc=302) PLATELET COUNT (BEAKER) (test qqkn=448) 208 K/CU MM 150-430 MEAN PLATELET VOLUME (BEAKER) (test cctw=699) 8.4 fL 6.5-10.5 NUCLEATED RED BLOOD CELLS (BEAKER) (test 0 /100 WBC 0-0 ajkj=822) NEUTROPHILS RELATIVE PERCENT (BEAKER) (test 70 % oiwb=318) LYMPHOCYTES RELATIVE PERCENT (BEAKER) (test 24 % puil=219) MONOCYTES RELATIVE PERCENT (BEAKER) (test 5 % soak=928) EOSINOPHILS RELATIVE PERCENT (BEAKER) (test 0 % zchl=972) BASOPHILS RELATIVE PERCENT (BEAKER) (test 0 % gbnh=834) NEUTROPHILS ABSOLUTE COUNT (BEAKER) (test 7.45 K/ L 1.80-8.00 maqj=301) LYMPHOCYTES ABSOLUTE COUNT (BEAKER) (test 2.59 K/ L 1.48-4.50 vrya=711) MONOCYTES ABSOLUTE COUNT (BEAKER) (test 0.53 K/ L 0.00-1.30 tbwe=182) EOSINOPHILS ABSOLUTE COUNT (BEAKER) (test 0.04 K/ L 0.00-0.50 moyr=745) BASOPHILS ABSOLUTE COUNT (BEAKER) (test 0.02 K/ L 0.00-0.20 phcb=905) 0.00PLATELET AGGREGATION: FUNCTION [id number] 12:55:00 Test Item Value Reference Range Comments WEAK ADP < % 60-91 This is a corrected RESULT(BEAKER) (test result. Previous sjmw=8960) result was 0 % on 06/27/2016 at 1051 CNC ROUTER OPERATOR PLATELET FUNCTION 0-39% indicates marked SCREEN INTERP (BEAKER) platelet dysfunction (test uous=1443) [id number] Dinah Calvo MD (BEAKER) (test (electronic signature) ivpq=8554) PLATELET COUNT AGG 228 K/CU MM 150-430 (BEAKER) (test rrvn=4386) HEMOGLOBIN [id number] 12:00:00 Test Item Value Reference Range Comments HEMOGLOBIN A1C (BEAKER) (test ilup=143) 5.2 % 4.3-6.1 HEMOGLOBIN AND [id number] 11:24:00 Test Item Value Reference Range Comments HEMOGLOBIN (BEAKER) (test zxww=294) 11.9 GM/DL 12.0-15.0 HEMATOCRIT (BEAKER) (test rzif=427) 35.0 % 36.0-45.0 POTASSIUM-STAT [id number] 07:54:00 Test Item Value Reference Range Comments POTASSIUM (BEAKER) (test glqu=673) 3.6 meq/L 3.6-5.5 HGB/HCT (H&H) - STAT [id number] 07:54:00 Test Item Value Reference Range Comments HEMOGLOBIN (BEAKER) (test frba=931) 12.3 g/dL 12.0-15.0 HEMATOCRIT (BEAKER) (test mqhs=512) 36.0 % 36.0-45.0 CBC (HEMOGRAM ONLY)2016-06-27 04:09:00 Test Item Value Reference Range Comments WHITE BLOOD CELL COUNT (BEAKER) (test yncv=379) 8.7 K/ L 4.0-10.0 RED BLOOD CELL COUNT (BEAKER) (test jdyh=050) 1.78 M/ L 4.00-5.00 HEMOGLOBIN (BEAKER) (test jpdu=215) 5.4 GM/DL 12.0-15.0 HEMATOCRIT (BEAKER) (test fqmt=739) 16.1 % 36.0-45.0 MEAN CORPUSCULAR VOLUME (BEAKER) (test hnhf=577) 90.7 fL 82.0-99.0 MEAN CORPUSCULAR HEMOGLOBIN (BEAKER) (test 30.6 pg 27.0-33.0 wakw=714) MEAN CORPUSCULAR HEMOGLOBIN CONC (BEAKER) (test 33.7 GM/DL 32.0-36.0 lfbf=038) RED CELL DISTRIBUTION WIDTH (BEAKER) (test 12.9 % 10.3-14.2 zaar=547) PLATELET COUNT (BEAKER) (test dlwf=639) 186 K/CU MM 150-430 MEAN PLATELET VOLUME (BEAKER) (test uvng=045) 8.1 fL 6.5-10.5 NUCLEATED RED BLOOD CELLS (BEAKER) (test 0 /100 WBC 0-0 gwjt=132) 0.00BASIC METABOLIC [id number] 03:49:00 Test Item Value Reference Range Comments SODIUM (BEAKER) (test 138 meq/L 136-145 fvfy=294) POTASSIUM (BEAKER) (test 3.4 meq/L 3.5-5.1 ejkb=688) CHLORIDE (BEAKER) (test 112 meq/L 98-107 xqvs=941) CO2 (BEAKER) (test 18 meq/L 22-29 mspi=289) BLOOD UREA NITROGEN 13 mg/dL 7-21 (BEAKER) (test agxx=332) CREATININE (BEAKER) (test 0.59 mg/dL 0.57-1.25 wsrd=322) GLUCOSE RANDOM (BEAKER) 125 mg/dL 70-105 (test qggu=354) CALCIUM (BEAKER) (test 7.1 mg/dL 8.4-10.2 cfzv=367) EGFR (BEAKER) (test mL/min/1.73 sq m INSUFFICIENT CLINICAL DATA fstr=6315) TO CALCULATE ESTIMATED GFR. TSH/FREE T4 IF [id number] 03:31:00 Test Item Value Reference Range Comments THYROID STIMULATING HORMONE (BEAKER) (test 1.53 uIU/mL 0.35-4.94 eahd=601) POTASSIUM-STAT [id number] 03:28:00 Test Item Value Reference Range Comments POTASSIUM (BEAKER) (test oded=821) 3.2 meq/L 3.6-5.5 [id number] 03:24:00 Test Item Value Reference Range Comments PROTIME (BEAKER) (test kkcs=970) 25.6 seconds 11.7-14.7 INR (BEAKER) (test bcng=240) 2.3 <=5.9 PARTIAL THROMBOPLASTIN TIME (BEAKER) (test 40.3 seconds 22.5-36.0 nciy=785) RECOMMENDED COUMADIN/WARFARIN INR THERAPY RANGESSTANDARD DOSE: 2.0 - 3.0 Includes: PROPHYLAXIS forvenous thrombosis, systemic embolization; TREATMENT for venous thrombosis and/or pulmonary embolus.HIGH RISK: Target INR is 2.5-3.5 for patients with mechanical heart valves. SCREEN, [id number] 03: 13:00 Test Item Value Reference Range Comments TEST URINE (BEAKER) (test wszh=282) Negative HGB/HCT (H&H) - STAT [id number] 03:04:00 Test Item Value Reference Range Comments HEMOGLOBIN (BEAKER) (test apei=318) 8.0 g/dL 12.0-15.0 HEMATOCRIT (BEAKER) (test zyek=927) 24.0 % 36.0-45.0 [id number] 20:07:00 Test Item Value Reference Range Comments ACTIVATED CLOTTING TIME 239 sec TESTED AT [address] [facility] (test uczv=329) [facility] [address] [id number] 20:01:00 Test Item Value Reference Range Comments ACTIVATED CLOTTING TIME 307 sec TESTED AT [address] [facility] (test tdxs=994) [facility] [address] CREATINE KINASE (CK), TOTAL AND [id number] 19:15:00 Test Item Value Reference Range Comments CREATINE KINASE TOTAL (BEAKER) (test lxjp=942) 38 U/L 29-200 CREATINE KINASE-MB (BEAKER) (test ejpr=166) 0.9 ng/mL 0.0-6.6 CREATINE KINASE-MB INDEX (BEAKER) (test oyvr=378) 2.4 % Effective 03/29/2014: CK-MB Reference Range ChangeNew: 0.0-6.6 Previous: 0.0- 4.9CK-MB Reference Range:<6.7 Normal6.7-10.0 Borderline>10.0 AbnormalTROPONIN [id number] 19:15:00 Test Item Value Reference Range Comments TROPONIN I (BEAKER) (test shvz=258) 0.01 ng/mL 0.00-0.03 Effective 03/29/2014: Reference Range [...] acute neurological disease, and persistent tachyarrhythmia.BASIC METABOLIC [id number] 19:14:00 Test Item Value Reference Range Comments SODIUM (BEAKER) (test 137 meq/L 136-145 jlvt=056) POTASSIUM (BEAKER) (test 3.6 meq/L 3.5-5.1 xxsb=809) CHLORIDE (BEAKER) (test 106 meq/L 98-107 xkxx=771) CO2 (BEAKER) (test 21 meq/L 22-29 fzfl=041) BLOOD UREA NITROGEN 10 mg/dL 7-21 (BEAKER) (test vyxf=550) CREATININE (BEAKER) (test 0.60 mg/dL 0.57-1.25 varx=805) GLUCOSE RANDOM (BEAKER) 106 mg/dL 70-105 (test llfa=260) CALCIUM (BEAKER) (test 8.7 mg/dL 8.4-10.2 airm=318) EGFR (BEAKER) (test mL/min/1.73 sq m INSUFFICIENT CLINICAL DATA ucev=0638) TO CALCULATE ESTIMATED GFR. B-TYPE NATRIURETIC FACTOR (BNP)2016-06-26 19:12:00 Test Item Value Reference Range Comments B-TYPE NATRIURETIC PEPTIDE (BEAKER) (test jcpc=796) 20 pg/mL 0-100 [id number] 19:07:00 Test Item Value Reference Range Comments MAGNESIUM (BEAKER) (test ecbj=070) 1.9 mg/dL 1.6-2.6 [id number] 18:53:00 Test Item Value Reference Range Comments PARTIAL THROMBOPLASTIN TIME (BEAKER) (test 32.0 seconds 22.5-36.0 nelp=290) PROTHROMBIN [id number] 18:52:00 Test Item Value Reference Range Comments PROTIME (BEAKER) (test mjyl=277) 14.3 seconds 11.7-14.7 INR (BEAKER) (test uqge=927) 1.1 <=5.9 RECOMMENDED COUMADIN/WARFARIN INR THERAPY RANGESSTANDARD DOSE: 2.0 - 3.0 Includes: PROPHYLAXIS forvenous thrombosis, systemic embolization; TREATMENT for venous thrombosis and/or pulmonary embolus.HIGH RISK: Target INR is 2.5-3.5 for patients with mechanical heart valves.CBC W/PLT COUNT & AUTO [id number] 18:46:00 Test Item Value Reference Range Comments WHITE BLOOD CELL COUNT (BEAKER) (test eect=123) 12.9 K/ L 4.0-10.0 RED BLOOD CELL COUNT (BEAKER) (test jizy=327) 3.56 M/ L 4.00-5.00 HEMOGLOBIN (BEAKER) (test gpvm=508) 10.8 GM/DL 12.0-15.0 HEMATOCRIT (BEAKER) (test usgq=444) 31.2 % 36.0-45.0 MEAN CORPUSCULAR VOLUME (BEAKER) (test fnvd=613) 87.8 fL 82.0-99.0 MEAN CORPUSCULAR HEMOGLOBIN (BEAKER) (test 30.5 pg 27.0-33.0 etqg=234) MEAN CORPUSCULAR HEMOGLOBIN CONC (BEAKER) (test 34.7 GM/DL 32.0-36.0 qhqx=238) RED CELL DISTRIBUTION WIDTH (BEAKER) (test 12.9 % 10.3-14.2 rfsy=877) PLATELET COUNT (BEAKER) (test ueig=673) 313 K/CU MM 150-430 MEAN PLATELET VOLUME (BEAKER) (test pbwr=791) 8.0 fL 6.5-10.5 NUCLEATED RED BLOOD CELLS (BEAKER) (test 0 /100 WBC 0-0 khox=460) NEUTROPHILS RELATIVE PERCENT (BEAKER) (test 88 % inlz=617) LYMPHOCYTES RELATIVE PERCENT (BEAKER) (test 10 % dpgz=762) MONOCYTES RELATIVE PERCENT (BEAKER) (test 2 % tidl=704) EOSINOPHILS RELATIVE PERCENT (BEAKER) (test 0 % xtod=634) BASOPHILS RELATIVE PERCENT (BEAKER) (test 0 % zqxb=480) NEUTROPHILS ABSOLUTE COUNT (BEAKER) (test 11.40 K/ L 1.80-8.00 snnd=221) LYMPHOCYTES ABSOLUTE COUNT (BEAKER) (test 1.24 K/ L 1.48-4.50 cjpy=809) MONOCYTES ABSOLUTE COUNT (BEAKER) (test 0.21 K/ L 0.00-1.30 zvun=846) EOSINOPHILS ABSOLUTE COUNT (BEAKER) (test 0.03 K/ L 0.00-0.50 cgnn=767) BASOPHILS ABSOLUTE COUNT (BEAKER) (test 0.00 K/ L 0.00-0.20 eokv=813) 0.00
[2018-06-16] MEDS ORDERED: NA CHLORIDE 0.9% 1,000 ML ONE (08:12)
[2018-06-16] MEDS ORDERED: MORPHINE 2 MG/ML SYR ONE (08:12)
[2018-06-16] MEDS ORDERED: DICYCLOMINE HCL 10 MG CAP ONE (08:12)
[2018-06-16] MEDS ORDERED: ONDANSETRON 4 MG/2 ML VIAL ONE (08:13)
[2018-06-16 08:14] LABS: Absolute Lymphocytes (CBC) 1.3 K/uL (0.7-4.9); Absolute Monocytes 0.4 K/uL (0.1-1.3); Basophils % 0.3 % (0-1.3); Eosinophils % 1.9 % (0-4.4); Hematocrit 39.7 % (36.0-45.0); Lymphocytes % 26.7 % (15.3-44.8); MPV 9.6 fL (7.6-11.3); Monocytes % 8.9 % (3.3-12.3); RBC Red Blood Cell Count 4.39 M/uL (3.86-4.86)
[2018-06-16 08:32] LABS: ALT/SGPT 22 U/L (12-78); AST/SGOT 16 U/L (15-37); Albumin 3.6 g/dL (3.4-5.0); Alkaline Phosphatase 64 U/L (45-117); BUN Blood Urea Nitrogen 18 mg/dL (7-18); Bicarbonate 28 mmol/L (21-32); Bilirubin Direct 0.2 mg/dL (0-0.2); Bilirubin Total 1.1 mg/dL (0.2-1.0); Glucose Level 94 mg/dL (74-106); Lipase 84 U/L (73-393); Potassium 4.1 mmol/L (3.5-5.1); Protein, Total 7.8 g/dL (6.4-8.2); Sodium Level 141 mmol/L (136-145)
--- NOTE | 2018-06-16 09:35 | RAD REPORT ---
EXAM DESCRIPTION: CT - Abdomen Pelvis W Contrast - 06/16/2018 9:20 am CLINICAL HISTORY: Abdominal pain with nausea. COMPARISON: none. TECHNIQUE: Computed axial tomography of the abdomen pelvis was obtained. 100 cc Isovue-300 was admin istered intravenously. Oral contrast was not requested which limits evaluation of bowel. All CT scans are performed using dose optimization technique as appropriate and may include automated exposure control or mA/KV adjustment according to patient size. FINDINGS: The liver, spleen, pancreas, adrenal and kidneys appear unremarkable. There is no evidence of diverticulitis. Appendix is normal caliber. An adnexal mass is not seen Small umbilical hernia IMPRESSION: No acute abnormality is displayed.
[2018-06-16 10:08] LABS: Urine Blood 1+ (NEG); Urine Glucose NEGATIVE (NEG); Urine Protein NEGATIVE (NEG); Urine pH 5.5 (5.0-7.0)
--- NOTE | 2018-06-16 10:16 | ER ---
Nurse's Notes [facility] Name: Lilliam Brar Age: 43 yrs Sex: Female : 1975 Arrival Date: 06/16/2018 Time: 07:04 Bed 14 Private MD: Diagnosis: Lower abdominal pain, unspecified;Diarrhea, unspecified Presentation: 06/16 07:17 Presenting complaint: Patient states: C/o abdominal pain in the umbilicus area and the rb1 right side when she lays on it. Transition of care: patient was not received from another setting of care. Onset of symptoms was June 15, 2018. Risk Assessment: Do you want to hurt yourself or someone else? Patient reports no desire to harm self or others. Initial Sepsis Screen: Does the patient meet any 2 criteria? No. Patient's initial sepsis screen is negative. Does the patient have a suspected source of infection? No. Patient's initial sepsis screen is negative. Care prior to arrival: None. 07:17 Method Of Arrival: Ambulatory rb1 07:17 Acuity: JUNI 3 rb1 Triage Assessment: 07:17 General: Appears in no apparent distress. comfortable, Behavior is calm, cooperative. rb1 Pain: Complains of pain in umbilical area Pain currently is 8 out of 10 on a pain scale. Neuro: Level of Consciousness is awake, alert, obeys commands, Oriented to person, place, time, situation. Cardiovascular: Capillary refill < 3 seconds is brisk in bilateral fingers. Respiratory: Airway is patent Respiratory effort is even, unlabored, Respiratory pattern is regular, symmetrical. GI: Reports diarrhea, nausea, vomiting. : No signs and/or symptoms were reported regarding the genitourinary system. Derm: Skin is dry, Skin is normal, Skin temperature is warm. 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 - Ebola Screening: : Patient negative for fever greater than or equal to 101.5 degrees Fahrenheit, and additional compatible Ebola Virus Disease symptoms. - Social history:: Smoking status: Patient/guardian denies using tobacco. Screenin:17 Abuse screen: Denies threats or abuse. Nutritional screening: No deficits noted. rb1 Tuberculosis screening: No symptoms or risk factors identified. Fall Risk None identified. Assessment: 07:17 General: See triage assessment. rb1 07:17 GI: Bowel sounds present X 4 quads. Abd is soft Abd is non tender. rb1 Vital Signs: 07:17 BP 133 / 63; Pulse 69; Resp 17; Temp 97.9(O); Pulse Ox 100% on R/A; Weight 83.91 kg rb1 (R); Height 5 ft. 3 in. (160.02 cm) (R); Pain 8/10; 08:15 BP 108 / 47; Pulse 74; Resp 16; Pulse Ox 100% on R/A; rb1 09:15 BP 98 / 61; Pulse 59; Resp 17; Pulse Ox 100% ; rb1 10:15 BP 100 / 65; Pulse 58; Resp 16; Pulse Ox 100% on R/A; rb1 07:17 Body Mass Index 32.77 (83.91 kg, 160.02 cm) rb1 ED Course: 07:04 Patient arrived in ED. as 07:17 Trinity Hyatt, RN is Primary Nurse. rb1 07:17 Patient has correct armband on for positive identification. Bed in low position. Call rb1 light in reach. Side rails up X 1. Pulse ox on. NIBP on. 07:17 Arm band placed on right wrist. rb1 07:18 Nick Barbosa PA is PHCP. jmm 07:18 Hank Bowden MD is Attending Physician. jmm 07:27 Triage completed. rb1 07:55 Inserted saline lock: 22 gauge in left antecubital area, using aseptic technique. Blood rb1 collected. 09:14 CT completed. Patient tolerated procedure well. Patient moved to CT via wheelchair. [id number] Patient moved back from CT. 09:24 CT Abd/Pelvis - W/Contrast In Process Unspecified. EDMS 10:13 Urine collected: clean catch specimen. ms 10:48 No provider procedures requiring assistance completed. IV discontinued, intact, rb1 bleeding controlled, No redness/swelling at site. Pressure dressing applied. Administered Medications: 08:05 Drug: NS 0.9% 1000 ml Route: IV; Rate: 1 bolus; Site: left antecubital; rb1 09:35 Follow up: IV Status: Completed infusion rb1 08:05 Drug: morphine 2 mg Route: IVP; Site: left antecubital; rb1 08:35 Follow up: Response: No adverse reaction; Pain is decreased rb1 08:05 Drug: Zofran 4 mg Route: IVP; Site: left antecubital; rb1 08:35 Follow up: Response: No adverse reaction; Nausea is decreased rb1 08:05 Drug: Bentyl 20 mg Route: PO; rb1 08:35 Follow up: Response: No adverse reaction rb1 Outcome: 10:15 Discharge ordered by . charleenm 10:48 Patient left the ED. rb1 10:48 Discharged to home ambulatory. rb1 10:48 Condition: stable 10:48 Discharge instructions given to patient, Instructed on discharge instructions, follow up and referral plans. medication usage, Demonstrated understanding of instructions, follow-up care, medications, Prescriptions given X 1. Signatures: Dispatcher [employer] EDMS Nick Barbosa PA PA jmm Martinez, Amelia as Solis, Maria ms Barber, Rebecca, SUZAN RN rb1 Mei Rooney [id number]
--- NOTE | 2018-06-16 10:17 | EDPHYS ---
Physician Documentation [facility] Name: Lilliam Brar Age: 43 yrs Sex: Female : 1975 Arrival Date: 06/16/2018 Time: 07:04 Bed 14 Private MD: ED Physician Hank Bowden HPI: 06/16 07:29 This 43 yrs old Female presents to ER via Ambulatory with complaints of jmm Abdominal Pain, Diarrhea. 07:29 The patient presents with abdominal pain right lower quadrant. Onset: The jmm symptoms/episode began/occurred gradually, 2 day(s) ago. Associated signs and symptoms: Pertinent positives: diarrhea. This is a 43 year old female with a history of htn, hypothyroidism, CAD that presents to the ED with complaints of right sided abdominal pain, nausea, and diarrhea. Patient denies recent travel, denies recent abx use, denies known infectious exposure. . 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 - Ebola Screening: : Patient negative for fever greater than or equal to 101.5 degrees Fahrenheit, and additional compatible Ebola Virus Disease symptoms. - Social history:: Smoking status: Patient/guardian denies using tobacco. ROS: 07:29 Constitutional: Negative for fever, chills, and weight loss, Cardiovascular: Negative jmm for chest pain, palpitations, and edema, Respiratory: Negative for shortness of breath, cough, wheezing, and pleuritic chest pain. 07:29 Back: Negative for injury and pain, MS/Extremity: Negative for injury and deformity, Skin: Negative for injury, rash, and discoloration, Neuro: Negative for headache, weakness, numbness, tingling, and seizure. 07:29 Abdomen/GI: Positive for abdominal pain, nausea, diarrhea. 07:29 All other systems are negative. Exam: 07:29 Constitutional: This is a well developed, well nourished patient who is awake, alert, jmm and in no acute distress. Head/Face: atraumatic. Eyes: EOMI, no conjunctival erythema appreciated ENT: Moist Mucus Membranes Neck: Trachea midline, Supple Chest/axilla: Normal chest wall appearance and motion. Cardiovascular: Regular rate and rhythm. No edema appreciated Respiratory: Normal respirations, no respiratory distress appreciated 07:29 Abdomen/GI: Inspection: abdomen appears normal, Bowel sounds: normal, Palpation: soft, mild abdominal tenderness, in the right lower quadrant. 07:29 Back: ROM is normal. 07:29 Musculoskeletal/extremity: ROM: intact in all extremities. 07:29 Skin: Appearance: Color: normal in color. 07:29 Neuro: Orientation: is normal, Mentation: is normal, Memory: is normal. 07:29 Psych: Behavior/mood is pleasant, cooperative. Vital Signs: 07:17 BP 133 / 63; Pulse 69; Resp 17; Temp 97.9(O); Pulse Ox 100% on R/A; Weight 83.91 kg rb1 (R); Height 5 ft. 3 in. (160.02 cm) (R); Pain 8/10; 08:15 BP 108 / 47; Pulse 74; Resp 16; Pulse Ox 100% on R/A; rb1 09:15 BP 98 / 61; Pulse 59; Resp 17; Pulse Ox 100% ; rb1 10:15 BP 100 / 65; Pulse 58; Resp 16; Pulse Ox 100% on R/A; rb1 07:17 Body Mass Index 32.77 (83.91 kg, 160.02 cm) rb1 MDM: 07:29 Patient medically screened. [facility] 10:12 Data reviewed: vital signs, nurses notes. Counseling: I had a detailed discussion with mary the patient and/or guardian regarding: the historical points, exam findings, and any diagnostic results supporting the discharge/admit diagnosis, lab results, radiology results, the need for outpatient follow up, to return to the emergency department if symptoms worsen or persist or if there are any questions or concerns that arise at home. ED course: Patient is alert and non toxic in appearance in the ED. CT negative. Patient given early appendicitis return precautions. . 06/16 07:34 Order name: Basic Metabolic Panel; Complete Time: 08:48 [facility] 06/16 07:34 Order name: CBC with Diff; Complete Time: 08:26 [facility] 06/16 07:34 Order name: Creatinine for Radiology; Complete Time: 08:30 [facility] 06/16 07:34 Order name: Hepatic Function; Complete Time: 08:48 [facility] 06/16 07:34 Order name: Lipase; Complete Time: 08:48 [facility] 06/16 07:34 Order name: Test, Serum; Complete Time: 08:48 [facility] 06/16 07:34 Order name: IV Saline Lock; Complete Time: 08:12 [facility] 06/16 07:34 Order name: Labs collected and sent; Complete Time: 08:12 [facility] 06/16 07:36 Order name: CT Abd/Pelvis - W/Contrast; Complete Time: 09:44 [facility] 06/16 10:05 Order name: Urine Dipstick--Ancillary (enter results); Complete Time: 10:10 06/16 07:34 Order name: Urine Dipstick-Ancillary (obtain specimen); Complete Time: 10:13 jmm Administered Medications: 08:05 Drug: NS 0.9% 1000 ml Route: IV; Rate: 1 bolus; Site: left antecubital; rb1 09:35 Follow up: IV Status: Completed infusion rb1 08:05 Drug: morphine 2 mg Route: IVP; Site: left antecubital; rb1 08:35 Follow up: Response: No adverse reaction; Pain is decreased rb1 08:05 Drug: Zofran 4 mg Route: IVP; Site: left antecubital; rb1 08:35 Follow up: Response: No adverse reaction; Nausea is decreased rb1 08:05 Drug: Bentyl 20 mg Route: PO; rb1 08:35 Follow up: Response: No adverse reaction rb1 Disposition: 17:17 Co-signature as Attending Physician, Hank Bowden MD. rn Disposition: 06/16/18 10:15 Discharged to Home. Impression: Lower abdominal pain, unspecified, Diarrhea, unspecified. - Condition is Stable. - Discharge Instructions: Abdominal Pain, Adult, Food Choices to Help Relieve Diarrhea, Adult, Diarrhea, Adult. - Prescriptions for Zofran ODT 4 mg Oral tablet,disintegrating - place 1 tablet by TRANSLINGUAL route every 4-6 hours; 20 tablet. - Medication Reconciliation Form, Thank You Letter, Antibiotic Education, Prescription Opioid Use, Work release form form. - Follow up: Private Physician; When: 2 - 3 days; Reason: Recheck today's complaints, Continuance of care, Re-evaluation by your physician. - Notes: Please follow up with your primary care provider in 1 to 2 days for reevaluation. Please return to the ED if you develop - Worsening Abdominal pain - Vomiting - Fever Signatures: Dispatcher [employer] EDMS Nick Barbosa PA PA jmm Nieto, Roman, MD MD rn Trinity Hyatt RN RN rb1 Corrections: (The following items were deleted from the chart) 10:48 10:15 06/16/2018 10:15 Discharged to Home. Impression: Lower abdominal pain, rb1 unspecified; Diarrhea, unspecified. Condition is Stable. Forms are Medication Reconciliation Form, Thank You Letter, Antibiotic Education, Prescription Opioid Use. Follow up: Private Physician; When: 2 - 3 days; Reason: Recheck today's complaints, Continuance of care, Re-evaluation by your physician. mary
[2018-06-16 11:02] VITALS: BP 133/63; TEMP 97.9; O2SAT 100
== END 2018-06-16 10:48 | disposition home or self-care (01) ==
LOC: ER 07:02
DX: R19.7 Diarrhea, unspecified (principal); I10 Essential (primary) hypertension; E03.9 Hypothyroidism, unspecified; Z79.82 Long term (current) use of aspirin; Z95.818 Presence of other cardiac implants and grafts
CPT/HCPCS: 36415; 74177; 80048; 80076; 81003; 83690; 84703; 85025; 96361; 96374; 96375; 99284; J2270; J2405; J7030; Q9967

== ENCOUNTER 2019-03-16 09:57 | Emergency (ER) | payer SELFPAY ==
[2019-03-16 10:47] LABS: Basophils % 0.7 % (0-1.3); Hematocrit 29.4 % (36.0-45.0); Lymphocytes % 31.4 % (15.3-44.8); MPV 9.3 fL (7.6-11.3); RBC Red Blood Cell Count 3.23 M/uL (3.86-4.86)
[2019-03-16 10:53] LABS: BUN Blood Urea Nitrogen 18 mg/dL (7-18); Bicarbonate 27 mmol/L (21-32); Glucose Level 78 mg/dL (74-106); Potassium 3.6 mmol/L (3.5-5.1); Sodium Level 140 mmol/L (136-145)
[2019-03-16 11:19] LABS: Urine Blood 3+ (NEG); Urine Glucose NEGATIVE (NEG); Urine Protein TRACE (NEG); Urine Specific Gravity >1.030 (1.005-1.030); Urine pH 5.5 (5.0-7.0)
--- NOTE | 2019-03-16 11:22 | ER ---
Nurse's Notes [facility] Name: Lilliam Brar Age: 43 yrs Sex: Female : 1975 Arrival Date: 03/16/2019 Time: 09:59 Bed 6 Private MD: Roberto Grace Diagnosis: Abnormal uterine and vaginal bleeding, unspecified Presentation: 03/16 10:04 Presenting complaint: Heavy vaginal bleeding with quarter sized clots and lower hb abdominal cramping x 5 days. LMP was 2 weeks ago. Seen by Dr. Mendez 2 weeks ago, told if bleeding continues she need to have a hysterectomy. Transition of care: patient was not received from another setting of care. Onset of symptoms was March 12, 2019. Risk Assessment: Do you want to hurt yourself or someone else? Patient reports no desire to harm self or others. Initial Sepsis Screen: Does the patient meet any 2 criteria? No. Patient's initial sepsis screen is negative. Does the patient have a suspected source of infection? No. Patient's initial sepsis screen is negative. Care prior to arrival: None. 10:04 Method Of Arrival: Ambulatory hb 10:04 Acuity: JUNI 3 hb Historical: - Allergies: 10:06 No Known Drug Allergies; hb - Home Meds: 10:06 aspirin 81 mg Oral chew 1 tab once daily [Active]; atorvastatin 20 mg Oral tab 1 tab hb once daily [Active]; levothyroxine 125 mcg tab 1 tab once daily [Active]; metoprolol succinate 50 mg Oral Tb24 1 tab once daily [Active]; Metoprolol Tartrate Oral [Active]; Nitroglycerin Oral [Active]; prasugrel 10 mg Oral 1 tab once daily [Active]; Plavix Oral [Active]; - PMHx: 10:06 cardiac; Hypertension; Hypothyroidism; ectopic ; Lupus; hb - PSHx: 10:06 ectopic ; cardiac stents; hb - Immunization history:: Adult Immunizations up to date. - Social history:: Smoking status: Patient/guardian denies using tobacco. - Ebola Screening: : No symptoms or risks identified at this time. Screenin:16 Abuse screen: Denies threats or abuse. Denies injuries from another. Nutritional sv screening: No deficits noted. Tuberculosis screening: No symptoms or risk factors identified. Fall Risk None identified. Assessment: 10:15 General: Appears in no apparent distress. uncomfortable, well developed, Behavior is sv calm, cooperative, appropriate for age. Pain: Complains of pain in suprapubic area Pain currently is 10 out of 10 on a pain scale. Neuro: Level of Consciousness is awake, alert, obeys commands, Oriented to person, place, time, situation, Gait is steady. Respiratory: Respiratory effort is even, unlabored, Respiratory pattern is regular, symmetrical. : Reports vaginal bleeding that is bright red, with clots, heavy flow since Friday. Derm: Skin is pink, warm \T\ dry. 11:12 Reassessment: Patient appears in no apparent distress at this time. No changes from sv previously documented assessment. Patient and/or family updated on plan of care and expected duration. Pain level reassessed. Patient is alert, oriented x 3, equal unlabored respirations, skin warm/dry/pink. Vital Signs: 10:06 BP 106 / 63; Pulse 74; Resp 16; Temp 97.8; Pulse Ox 100% ; Weight 86.18 kg; Height 5 hb ft. 3 in. (160.02 cm); Pain 10/10; 11:12 BP 100 / 66; Pulse 65; Resp 16; Pulse Ox 100% ; sv 10:06 Body Mass Index 33.66 (86.18 kg, 160.02 cm) hb ED Course: 09:59 Patient arrived in ED. mr 09:59 Roberto Grace MD is Private Physician. mr 10:05 Triage completed. hb 10:06 Arm band placed on. hb 10:08 Zabrina Flores [facility]-C [facility]. kb 10:08 Orion Ghotra MD is Attending Physician. kb 10:10 Shaila Samayoa RN is Primary Nurse. sv 10:15 Nurse Practitioner and/or Physician Rn [facility] to see patient. sv 10:16 Patient has correct armband on for positive identification. Placed in gown. Bed in low sv position. Call light in reach. Adult w/ patient. Door closed. Head of bed elevated. 10:20 Inserted saline lock: 20 gauge in right antecubital area, using aseptic technique. sv Blood collected. Flushed right antecubital with 5 ml normal saline. 10:26 Patient taken to ultrasound. via wheelchair. sv 10:32 US Transvaginal Study (Probe) In Process Unspecified. EDMS 11:14 Urine collected: clean catch specimen, cloudy, calin colored. jb1 11:16 Awaiting radiology results. sv 11:17 Urine --Ancillary (enter results) Sent. sv 11:17 Urine Dipstick--Ancillary (enter results) Sent. sv 11:20 Lito Durán MD is Referral Physician. kb 11:31 No provider procedures requiring assistance completed. IV discontinued, intact, sv bleeding controlled, No redness/swelling at site. Pressure dressing applied. Administered Medications: No medications were administered Outcome: 11:20 Discharge ordered by MD. kb 11:31 Discharged to home ambulatory, with family. sv 11:31 Condition: stable 11:31 Discharge instructions given to patient, Pt stated she already made a f/u with Dr Durán for this Instructed on discharge instructions, follow up and referral plans. Demonstrated understanding of instructions, follow-up care. 11:32 Patient left the ED. sv Signatures: Dispatcher [employer] EDMS Toby Fisher jb1 Zabrina Flores, SENIOR SOFTWARE DEVELOPMENT MANAGER-C SENIOR SOFTWARE DEVELOPMENT MANAGER-Shaila Goins, RN RN sv Mary Anne Díaz mr Kaela Galindo, RN RN Corrections: (The following items were deleted from the chart) 11:12 10:15 : Reports vaginal bleeding that is bright red, with clots, sv sv
--- NOTE | 2019-03-16 11:23 | EDPHYS ---
Physician Documentation [facility] Name: Lilliam Brar Age: 43 yrs Sex: Female : 1975 Arrival Date: 03/16/2019 Time: 09:59 Bed 6 Private MD: Roberto Grace ED Physician Orion Ghotra HPI: 03/16 10:44 This 43 yrs old Female presents to ER via Ambulatory with complaints of kb Vaginal Bleeding. 10:44 The patient presents with vaginal bleeding that is moderate, with clots. Onset: The kb symptoms/episode began/occurred 5 day(s) ago. Modifying factors: The symptoms are alleviated by nothing, the symptoms are aggravated by nothing. Associated signs and symptoms: Pertinent positives: vaginal bleeding. Severity of symptoms: At their worst the symptoms were moderate, in the emergency department the symptoms are unchanged. The patient has experienced similar episodes in the past. The patient has been recently seen by a physician:. Pt reports she has had frequent episodes of vaginal bleeding. States she had it 2 weeks ago and three weeks before that as well. Saw Dr Durán for this 2 weeks ago, had biopsy done that was negative and told it it continues to happen she needed to have a hysterectomy. States the current vaginal bleeding started on Friday. . Historical: - Allergies: 10:06 No Known Drug Allergies; hb - Home Meds: 10:06 aspirin 81 mg Oral chew 1 tab once daily [Active]; atorvastatin 20 mg Oral tab 1 tab hb once daily [Active]; levothyroxine 125 mcg tab 1 tab once daily [Active]; metoprolol succinate 50 mg Oral Tb24 1 tab once daily [Active]; Metoprolol Tartrate Oral [Active]; Nitroglycerin Oral [Active]; prasugrel 10 mg Oral 1 tab once daily [Active]; Plavix Oral [Active]; - PMHx: 10:06 cardiac; Hypertension; Hypothyroidism; ectopic ; Lupus; hb - PSHx: 10:06 ectopic ; cardiac stents; hb - Immunization history:: Adult Immunizations up to date. - Social history:: Smoking status: Patient/guardian denies using tobacco. - Ebola Screening: : No symptoms or risks identified at this time. ROS: 10:46 Constitutional: Negative for fever, chills, and weight loss, Neck: Negative for injury, kb pain, and swelling, Cardiovascular: Negative for chest pain, palpitations, and edema, Respiratory: Negative for shortness of breath, cough, wheezing, and pleuritic chest pain, Abdomen/GI: Negative for abdominal pain, nausea, vomiting, diarrhea, and constipation, Back: Negative for injury and pain, MS/Extremity: Negative for injury and deformity, Skin: Negative for injury, rash, and discoloration, Neuro: Negative for headache, weakness, numbness, tingling, and seizure. 10:46 : Positive for vaginal bleeding. Exam: 10:46 Constitutional: This is a well developed, well nourished patient who is awake, alert, kb and in no acute distress. Head/Face: Normocephalic, atraumatic. Neck: Trachea midline, no thyromegaly or masses palpated, and no cervical lymphadenopathy. Supple, full range of motion without nuchal rigidity, or vertebral point tenderness. No Meningismus. Chest/axilla: Normal chest wall appearance and motion. Nontender with no deformity. No lesions are appreciated. Cardiovascular: Regular rate and rhythm with a normal S1 and S2. No gallops, murmurs, or rubs. Normal PMI, no JVD. No pulse deficits. Respiratory: Lungs have equal breath sounds bilaterally, clear to auscultation and percussion. No rales, rhonchi or wheezes noted. No increased work of breathing, no retractions or nasal flaring. Abdomen/GI: Soft, non-tender, with normal bowel sounds. No distension or tympany. No guarding or rebound. No evidence of tenderness throughout. Back: No spinal tenderness. No costovertebral tenderness. Full range of motion. Skin: Warm, dry with normal turgor. Normal color with no rashes, no lesions, and no evidence of cellulitis. MS/ Extremity: Pulses equal, no cyanosis. Neurovascular intact. Full, normal range of motion. Neuro: Awake and alert, GCS 15, oriented to person, place, time, and situation. Cranial nerves II-XII grossly intact. Motor strength 5/5 in all extremities. Sensory grossly intact. Cerebellar exam normal. Normal gait. Vital Signs: 10:06 BP 106 / 63; Pulse 74; Resp 16; Temp 97.8; Pulse Ox 100% ; Weight 86.18 kg; Height 5 hb ft. 3 in. (160.02 cm); Pain 10/10; 11:12 BP 100 / 66; Pulse 65; Resp 16; Pulse Ox 100% ; sv 10:06 Body Mass Index 33.66 (86.18 kg, 160.02 cm) hb MDM: 10:08 Patient medically screened. kb 10:46 Data reviewed: vital signs, nurses notes. Data interpreted: Pulse oximetry: on room air kb is 100 %. Interpretation: normal. 11:19 Counseling: I had a detailed discussion with the patient and/or guardian regarding: the kb historical points, exam findings, and any diagnostic results supporting the discharge/admit diagnosis, lab results, radiology results, the need for outpatient follow up, an OB/Gyne specialist, to return to the emergency department if symptoms worsen or persist or if there are any questions or concerns that arise at home. ED course: Pt educated to follow up with Dr Durán to discuss further plan of care. Verbal understanding received. . 03/16 10:15 Order name: CBC with Diff; Complete Time: 10:57 kb 03/16 10:15 Order name: Basic Metabolic Panel; Complete Time: 10:57 kb 03/16 10:15 Order name: IV Start; Complete Time: 10:26 kb 03/16 10:15 Order name: US Transvaginal Study (Probe) kb 03/16 11:14 Order name: Urine Dipstick--Ancillary (enter results); Complete Time: 11:23 bd 03/16 11:14 Order name: Urine --Ancillary (enter results); Complete Time: 11:23 bd 03/16 10:15 Order name: Urine Dipstick-Ancillary (obtain specimen); Complete Time: 11:14 kb 03/16 10:15 Order name: Urine Test (obtain specimen); Complete Time: 11:14 kb Administered Medications: No medications were administered Disposition: 03/17 07:16 Co-signature as Attending Physician, Orion Ghotra MD I agree with the assessment and kdr plan of care. Chart complete. Disposition: 03/16/19 11:20 Discharged to Home. Impression: Abnormal uterine and vaginal bleeding, unspecified. - Condition is Stable. - Discharge Instructions: Uterine Fibroids, [id number], Abnormal Uterine Bleeding, [id number]. - Medication Reconciliation Form, Thank You Letter, Antibiotic Education, Prescription Opioid Use, Work release form form. - Follow up: Emergency Department; When: As needed; Reason: Worsening of condition. Follow up: Lito Durán MD; When: 2 - 3 days; Reason: Recheck today's complaints, Continuance of care, Re-evaluation by your physician. Signatures: Dispatcher [employer] EDOH Som Floresistin, DRAFTER CIVIL-C DRAFTER CIVIL-Ckb Shaila Samayoa, SUZAN RN sv Orion Ghotra MD MD [facility] Kaela Galindo RN RN Corrections: (The following items were deleted from the chart) 03/16 11:32 11:20 03/16/2019 11:20 Discharged to Home. Impression: Abnormal uterine and vaginal sv bleeding, unspecified. Condition is Stable. Forms are Work release form, Medication Reconciliation Form, Thank You Letter, Antibiotic Education, Prescription Opioid Use. Follow up: Emergency Department; When: As needed; Reason: Worsening of condition. Follow up: Lito Durán; When: 2 - 3 days; Reason: Recheck today's complaints, Continuance of care, Re-evaluation by your physician. kb
[2019-03-16 11:39] VITALS: TEMP 97.8; O2SAT 100
[2019-03-16 11:40] VITALS: BP 100/66
--- NOTE | 2019-03-16 12:07 | RAD REPORT ---
EXAM DESCRIPTION: US - Transvaginal Study Probe - 03/16/2019 11:03 am CLINICAL HISTORY: Vaginal bleeding Preliminary findings provided at the time of the study. COMPARISON: None. TECHNIQUE: Endovaginal sonography was performed. FINDINGS: Nabothian cysts are present. In the anterior lower uterus an 11 millimeter isoechoic mass is present believed to be a small fibroid. This does not have mass effect on the endometrial cavity. No other myometrial mass identified. Endometrial stripe is 5 mm with no focal endometrial abnormality seen. No blood or fluid in the cul de sac. Both ovaries are identified. Normal blood flow in the ovarian stroma. No suspicious ovarian or adnexa l finding. IMPRESSION: Small 11 millimeter fibroid anterior lower uterine segment not regarded as significant. No suspicious endometrial finding. No suspicious ovarian or adnexal finding.
--- OUTSIDE RECORDS SUMMARY | 2019-03-21 23:14 | XMS REPORT ---
:1975 [facility] Address [address] [place] [address] [place] [id number] Care Team Providers Name Role Phone MICHAEL [...] Range Comments CREATINE KINASE TOTAL (BEAKER) (test lfgq=343) 38 U/L 29-200 CREATINE KINASE-MB (BEAKER) (test naec=517) 0.4 ng/mL 0.0-6.6 CREATINE KINASE-MB INDEX (BEAKER) (test wiac=848) 1.1 % Effective 03/29/2014: CK-MB Reference Range ChangeNew: 0.0-6.6 Previous: 0.0- 4.9CK-MB Reference Range:<6.7 Normal6.7-10.0 Borderline>10.0 AbnormalTROPONIN [id number] 14:51:00 Test Item Value Reference Range Comments TROPONIN I (BEAKER) (test gocm=668) 0.01 ng/mL 0.00-0.03 Effective 03/29/2014: Reference Range [...] acute neurological disease, and persistent tachyarrhythmia.URINALYSIS W/ [id number] 11:14:00 Test Item Value Reference Range Comments COLOR (BEAKER) (test djhw=609) Yellow CLARITY (BEAKER) (test ynmu=515) Hazy SPECIFIC GRAVITY UA (BEAKER) (test 1.023 1.001-1.035 nrzc=790) PH UA (BEAKER) (test vmwy=314) 6.5 5.0-8.0 PROTEIN UA (BEAKER) (test aiwv=623) 10 mg/dL Negative GLUCOSE UA (BEAKER) (test vwes=189) Negative Negative KETONES UA (BEAKER) (test yqbj=763) Negative Negative BILIRUBIN UA (BEAKER) (test avnd=017) Negative Negative BLOOD UA (BEAKER) (test bxjp=993) Negative Negative NITRITE UA (BEAKER) (test nlfu=187) Negative Negative LEUKOCYTE ESTERASE UA (BEAKER) (test Negative Negative aqww=180) UROBILINOGEN UA (BEAKER) (test gbky=104) 12.0 mg/dL 0.2-1.0 RBC UA (BEAKER) (test pjfg=208) 2 /HPF WBC UA (BEAKER) (test qxoh=976) 2 /HPF MUCUS (BEAKER) (test sxaj=2401) Occasional SQUAMOUS EPITHELIAL (BEAKER) (test 3 /HPF llqt=886) SOURCE(BEAKER) (test hnqc=5454) Urine, Clean Catch BASIC METABOLIC [id number] 11:05:00 Test Item Value Reference Range Comments SODIUM (BEAKER) (test 136 meq/L 136-145 ydxq=685) POTASSIUM (BEAKER) (test 3.8 meq/L 3.5-5.1 pocy=662) CHLORIDE (BEAKER) (test 101 meq/L 98-107 cltn=349) CO2 (BEAKER) (test 24 meq/L 22-29 csmv=616) BLOOD UREA NITROGEN 11 mg/dL 7-21 (BEAKER) (test bwhw=192) CREATININE (BEAKER) (test 0.63 mg/dL 0.57-1.25 skce=203) GLUCOSE RANDOM (BEAKER) 96 mg/dL 70-105 (test afqu=477) CALCIUM (BEAKER) (test 9.2 mg/dL 8.4-10.2 brhn=128) EGFR (BEAKER) (test mL/min/1.73 sq m INSUFFICIENT CLINICAL DATA rdsi=6215) TO CALCULATE ESTIMATED GFR. CBC W/PLT COUNT & AUTO [id number] 11:00:00 Test Item Value Reference Range Comments WHITE BLOOD CELL COUNT (BEAKER) (test rjor=040) 10.7 K/ L 4.0-10.0 RED BLOOD CELL COUNT (BEAKER) (test mzvh=334) 4.80 M/ L 4.00-5.00 HEMOGLOBIN (BEAKER) (test zinq=017) 13.3 GM/DL 12.0-15.0 HEMATOCRIT (BEAKER) (test snee=268) 42.6 % 36.0-45.0 MEAN CORPUSCULAR VOLUME (BEAKER) (test avet=239) 88.9 fL 82.0-99.0 MEAN CORPUSCULAR HEMOGLOBIN (BEAKER) (test 27.7 pg 27.0-33.0 ivpm=952) MEAN CORPUSCULAR HEMOGLOBIN CONC (BEAKER) (test 31.1 GM/DL 32.0-36.0 vdzd=922) RED CELL DISTRIBUTION WIDTH (BEAKER) (test 13.1 % 10.3-14.2 nskn=126) PLATELET COUNT (BEAKER) (test fgta=622) 233 K/CU MM 150-430 MEAN PLATELET VOLUME (BEAKER) (test naqs=344) 7.8 fL 6.5-10.5 NUCLEATED RED BLOOD CELLS (BEAKER) (test 0 /100 WBC 0-0 owvp=423) NEUTROPHILS RELATIVE PERCENT (BEAKER) (test 77 % szxj=868) LYMPHOCYTES RELATIVE PERCENT (BEAKER) (test 14 % rlmo=375) MONOCYTES RELATIVE PERCENT (BEAKER) (test 8 % iipq=995) EOSINOPHILS RELATIVE PERCENT (BEAKER) (test 1 % gwjf=630) BASOPHILS RELATIVE PERCENT (BEAKER) (test 0 % evmx=799) NEUTROPHILS ABSOLUTE COUNT (BEAKER) (test 8.24 K/ L 1.80-8.00 nwrf=705) LYMPHOCYTES ABSOLUTE COUNT (BEAKER) (test 1.47 K/ L 1.48-4.50 ftnd=167) MONOCYTES ABSOLUTE COUNT (BEAKER) (test 0.88 K/ L 0.00-1.30 ayfr=974) EOSINOPHILS ABSOLUTE COUNT (BEAKER) (test 0.08 K/ L 0.00-0.50 rxfy=537) BASOPHILS ABSOLUTE COUNT (BEAKER) (test 0.00 K/ L 0.00-0.20 tfzs=573) [id number] 10:58:00 Test Item Value Reference Range Comments LIPASE (BEAKER) (test mhzq=846) 9 U/L 8-78 PLATELET AGGREGATION: FUNCTION [id number] 10:10:00 Test Item Value Reference Range Comments WEAK ADP RESULT(BEAKER) (test < % 60-91 glud=0447) PLATELET FUNCTION SCREEN 0-39% indicates marked platelet INTERP (BEAKER) (test dysfunction read=7884) [id number]-STOFUVLSUIX-3212 Lauryn Lopez MD (electronic (BEAKER) (test ddke=1909) signature) PLATELET COUNT AGG (BEAKER) 198 K/CU MM 150-430 (test yehy=5371) Platelet Function Screen results may be falsely low with platelet counts<100, 000/cu mm.BASIC METABOLIC [id number] 08:10:00 Test Item Value Reference Range Comments SODIUM (BEAKER) (test 136 meq/L 136-145 lhga=061) POTASSIUM (BEAKER) (test 3.7 meq/L 3.5-5.1 lnlv=242) CHLORIDE (BEAKER) (test 104 meq/L 98-107 mdtu=258) CO2 (BEAKER) (test 24 meq/L 22-29 bqgw=428) BLOOD UREA NITROGEN 14 mg/dL 7-21 (BEAKER) (test uckw=841) CREATININE (BEAKER) (test 0.57 mg/dL 0.57-1.25 vasp=226) GLUCOSE RANDOM (BEAKER) 95 mg/dL 70-105 (test scbc=373) CALCIUM (BEAKER) (test 8.2 mg/dL 8.4-10.2 vxjq=487) EGFR (BEAKER) (test mL/min/1.73 sq m INSUFFICIENT CLINICAL DATA vcci=2535) TO CALCULATE ESTIMATED GFR. [id number] 07:54:00 Test Item Value Reference Range Comments MAGNESIUM (BEAKER) (test ivcu=412) 2.0 mg/dL 1.6-2.6 HEMOGLOBIN AND [id number] 06:43:00 Test Item Value Reference Range Comments HEMOGLOBIN (BEAKER) (test opiq=846) 11.8 GM/DL 12.0-15.0 HEMATOCRIT (BEAKER) (test fxod=341) 34.9 % 36.0-45.0 HEMOGLOBIN AND [id number] 13:04:00 Test Item Value Reference Range Comments HEMOGLOBIN (BEAKER) (test wzyt=749) 11.9 GM/DL 12.0-15.0 HEMATOCRIT (BEAKER) (test seiq=813) 34.8 % 36.0-45.0 PLATELET AGGREGATION: FUNCTION [id number] 11:13:00 Test Item Value Reference Range Comments WEAK ADP < % 60-91 This is a corrected RESULT(BEAKER) (test result. Previous nhol=0351) result was 0 % on 06/28/2016 at 0429 RADIATION / CHEMISTRY TECHNICIAN PLATELET FUNCTION 0-39% indicates marked SCREEN INTERP (BEAKER) platelet dysfunction (test izma=2743) [id number] Dinah Calvo MD (BEAKER) (test (electronic signature) amrf=0836) PLATELET COUNT AGG 188 K/CU MM 150-430 (BEAKER) (test sorh=1637) PLATELET AGGREGATION: DRUG [id number] 10:56:00 Test Item Value Reference Range Comments STRONG ADP RESULT(BEAKER) (test < % 70-94 hasx=5952) WEAK ADP RESULT(BEAKER) (test < % 60-91 gfku=3295) ARACHADONIC ACID RESULT(BEAKER) < % 63-89 (test jwjl=1371) PLATELET AGG DRUG INTERPRETATION Decreased response to ADP (BEAKER) (test qrms=5314) suggest a S9P66-hmabusosy drug effect. PLATELET AGG DRUG INTERPRETATION Decreased response to (BEAKER) (test ggof=005358) arachidonic acid suggests aspirin-like effect. GEJS-GYTOLGQYEUO-[id number] (BEAKER) Dinah Calvo MD (test obdf=0052) (electronic signature) PLATELET COUNT AGG (BEAKER) 153 K/CU MM 150-430 (test syyd=2999) LIPID [id number] 04:11:00 Test Item Value Reference Range Comments TRIGLYCERIDES (BEAKER) (test tmej=432) 95 mg/dL CHOLESTEROL (BEAKER) (test crlx=504) 149 mg/dL HDL CHOLESTEROL (BEAKER) (test mrho=790) 36 mg/dL LDL CHOLESTEROL CALCULATED (BEAKER) (test 94 mg/dL khxb=783) Triglyceride Reference Range: Low Risk <150 Borderline 150- 199 High Risk 200-499 Very High Risk >=500Cholesterol Reference Range: Low Risk <200 Borderline 200-239 High Risk > 240HDL Cholesterol Reference Range: Low Risk >=60 High Risk <40LDL Cholesterol Reference Range: Optimal <100 Near Optimal 100-129 Borderline 130-159 High 160-189 Very High >=190BASIC METABOLIC [id number] 04:11:00 Test Item Value Reference Range Comments SODIUM (BEAKER) (test 137 meq/L 136-145 pzdk=442) POTASSIUM (BEAKER) (test 3.5 meq/L 3.5-5.1 mlbu=219) CHLORIDE (BEAKER) (test 105 meq/L 98-107 sjzy=468) CO2 (BEAKER) (test 24 meq/L 22-29 nuow=815) BLOOD UREA NITROGEN 11 mg/dL 7-21 (BEAKER) (test oyzp=291) CREATININE (BEAKER) (test 0.53 mg/dL 0.57-1.25 nfli=338) GLUCOSE RANDOM (BEAKER) 102 mg/dL 70-105 (test jody=052) CALCIUM (BEAKER) (test 8.0 mg/dL 8.4-10.2 gqxg=162) EGFR (BEAKER) (test mL/min/1.73 sq m INSUFFICIENT CLINICAL DATA fpie=2863) TO CALCULATE ESTIMATED GFR. HEMOGLOBIN AND [id number] 03:55:00 Test Item Value Reference Range Comments HEMOGLOBIN (BEAKER) (test orrc=019) 11.3 GM/DL 12.0-15.0 HEMATOCRIT (BEAKER) (test gtzg=059) 33.3 % 36.0-45.0 HEMOGLOBIN AND [id number] 18:31:00 Test Item Value Reference Range Comments HEMOGLOBIN (BEAKER) (test 11.4 GM/DL 12.0-15.0 wvtl=144) HEMATOCRIT (BEAKER) (test 34.7 % 36.0-45.0 This is a corrected result. ushf=633) Previous result was 14.4 % on 06/27/2016 at 1826 RADIATION / CHEMISTRY TECHNICIAN CBC W/PLT COUNT & AUTO [id number] 15:32:00 Test Item Value Reference Range Comments WHITE BLOOD CELL COUNT (BEAKER) (test ooic=323) 10.6 K/ L 4.0-10.0 RED BLOOD CELL COUNT (BEAKER) (test ubcc=091) 4.11 M/ L 4.00-5.00 HEMOGLOBIN (BEAKER) (test rbma=354) 12.5 GM/DL 12.0-15.0 HEMATOCRIT (BEAKER) (test bced=641) 36.5 % 36.0-45.0 MEAN CORPUSCULAR VOLUME (BEAKER) (test tzlh=971) 88.8 fL 82.0-99.0 MEAN CORPUSCULAR HEMOGLOBIN (BEAKER) (test 30.3 pg 27.0-33.0 uapw=033) MEAN CORPUSCULAR HEMOGLOBIN CONC (BEAKER) (test 34.2 GM/DL 32.0-36.0 apfs=732) RED CELL DISTRIBUTION WIDTH (BEAKER) (test 12.8 % 10.3-14.2 mene=935) PLATELET COUNT (BEAKER) (test mmhb=794) 208 K/CU MM 150-430 MEAN PLATELET VOLUME (BEAKER) (test lmhb=269) 8.4 fL 6.5-10.5 NUCLEATED RED BLOOD CELLS (BEAKER) (test 0 /100 WBC 0-0 thzy=316) NEUTROPHILS RELATIVE PERCENT (BEAKER) (test 70 % yvzj=667) LYMPHOCYTES RELATIVE PERCENT (BEAKER) (test 24 % gypq=302) MONOCYTES RELATIVE PERCENT (BEAKER) (test 5 % zbpi=580) EOSINOPHILS RELATIVE PERCENT (BEAKER) (test 0 % iduq=046) BASOPHILS RELATIVE PERCENT (BEAKER) (test 0 % fuyg=158) NEUTROPHILS ABSOLUTE COUNT (BEAKER) (test 7.45 K/ L 1.80-8.00 lslo=856) LYMPHOCYTES ABSOLUTE COUNT (BEAKER) (test 2.59 K/ L 1.48-4.50 jvuy=352) MONOCYTES ABSOLUTE COUNT (BEAKER) (test 0.53 K/ L 0.00-1.30 drgc=423) EOSINOPHILS ABSOLUTE COUNT (BEAKER) (test 0.04 K/ L 0.00-0.50 rnyv=144) BASOPHILS ABSOLUTE COUNT (BEAKER) (test 0.02 K/ L 0.00-0.20 wjho=611) 0.00PLATELET AGGREGATION: FUNCTION [id number] 12:55:00 Test Item Value Reference Range Comments WEAK ADP < % 60-91 This is a corrected RESULT(BEAKER) (test result. Previous irqs=1641) result was 0 % on 06/27/2016 at 1051 RADIATION / CHEMISTRY TECHNICIAN PLATELET FUNCTION 0-39% indicates marked SCREEN INTERP (BEAKER) platelet dysfunction (test lpip=8137) [id number]-[id number] Dinah Calvo MD (BEAKER) (test (electronic signature) ziul=1946) PLATELET COUNT AGG 228 K/CU MM 150-430 (BEAKER) (test mwhx=1565) HEMOGLOBIN [id number] 12:00:00 Test Item Value Reference Range Comments HEMOGLOBIN A1C (BEAKER) (test afei=703) 5.2 % 4.3-6.1 HEMOGLOBIN AND [id number] 11:24:00 Test Item Value Reference Range Comments HEMOGLOBIN (BEAKER) (test tgvi=143) 11.9 GM/DL 12.0-15.0 HEMATOCRIT (BEAKER) (test zvcj=594) 35.0 % 36.0-45.0 POTASSIUM-STAT [id number] 07:54:00 Test Item Value Reference Range Comments POTASSIUM (BEAKER) (test yuhw=474) 3.6 meq/L 3.6-5.5 HGB/HCT (H&H) - STAT [id number] 07:54:00 Test Item Value Reference Range Comments HEMOGLOBIN (BEAKER) (test duyw=978) 12.3 g/dL 12.0-15.0 HEMATOCRIT (BEAKER) (test qqbb=173) 36.0 % 36.0-45.0 CBC (HEMOGRAM ONLY)2016-06-27 04:09:00 Test Item Value Reference Range Comments WHITE BLOOD CELL COUNT (BEAKER) (test hrjo=838) 8.7 K/ L 4.0-10.0 RED BLOOD CELL COUNT (BEAKER) (test llsi=549) 1.78 M/ L 4.00-5.00 HEMOGLOBIN (BEAKER) (test gjzy=365) 5.4 GM/DL 12.0-15.0 HEMATOCRIT (BEAKER) (test nnkz=261) 16.1 % 36.0-45.0 MEAN CORPUSCULAR VOLUME (BEAKER) (test lfys=343) 90.7 fL 82.0-99.0 MEAN CORPUSCULAR HEMOGLOBIN (BEAKER) (test 30.6 pg 27.0-33.0 nffl=811) MEAN CORPUSCULAR HEMOGLOBIN CONC (BEAKER) (test 33.7 GM/DL 32.0-36.0 movg=637) RED CELL DISTRIBUTION WIDTH (BEAKER) (test 12.9 % 10.3-14.2 kjwg=603) PLATELET COUNT (BEAKER) (test pgvz=669) 186 K/CU MM 150-430 MEAN PLATELET VOLUME (BEAKER) (test aoov=991) 8.1 fL 6.5-10.5 NUCLEATED RED BLOOD CELLS (BEAKER) (test 0 /100 WBC 0-0 xdqb=181) 0.00BASIC METABOLIC [id number] 03:49:00 Test Item Value Reference Range Comments SODIUM (BEAKER) (test 138 meq/L 136-145 tasy=680) POTASSIUM (BEAKER) (test 3.4 meq/L 3.5-5.1 gtec=508) CHLORIDE (BEAKER) (test 112 meq/L 98-107 htui=258) CO2 (BEAKER) (test 18 meq/L 22-29 sjgk=317) BLOOD UREA NITROGEN 13 mg/dL 7-21 (BEAKER) (test srbr=528) CREATININE (BEAKER) (test 0.59 mg/dL 0.57-1.25 rscn=477) GLUCOSE RANDOM (BEAKER) 125 mg/dL 70-105 (test axpm=219) CALCIUM (BEAKER) (test 7.1 mg/dL 8.4-10.2 cici=879) EGFR (BEAKER) (test mL/min/1.73 sq m INSUFFICIENT CLINICAL DATA ynqe=4716) TO CALCULATE ESTIMATED GFR. TSH/FREE T4 IF [id number] 03:31:00 Test Item Value Reference Range Comments THYROID STIMULATING HORMONE (BEAKER) (test 1.53 uIU/mL 0.35-4.94 mvdt=590) POTASSIUM-STAT [id number] 03:28:00 Test Item Value Reference Range Comments POTASSIUM (BEAKER) (test iedx=848) 3.2 meq/L 3.6-5.5 [id number] 03:24:00 Test Item Value Reference Range Comments PROTIME (BEAKER) (test lkhx=118) 25.6 seconds 11.7-14.7 INR (BEAKER) (test yvnq=556) 2.3 <=5.9 PARTIAL THROMBOPLASTIN TIME (BEAKER) (test 40.3 seconds 22.5-36.0 nvhn=952) RECOMMENDED COUMADIN/WARFARIN INR THERAPY RANGESSTANDARD DOSE: 2.0 - 3.0 Includes: PROPHYLAXIS forvenous thrombosis, systemic embolization; TREATMENT for venous thrombosis and/or pulmonary embolus.HIGH RISK: Target INR is 2.5-3.5 for patients with mechanical heart valves. SCREEN, [id number] 03: 13:00 Test Item Value Reference Range Comments TEST URINE ([facility]) (test bmna=191) Negative HGB/HCT (H&H) - STAT [id number] 03:04:00 Test Item Value Reference Range Comments [facility] (test zhuj=143) 8.0 g/dL 12.0-15.0 [facility]IT [facility] (test lysn=805) 24.0 % 36.0-45.0 [id number] 20:07:00 Test Item Value Reference Range Comments ACTIVATED CLOTTING TIME 239 sec TESTED AT [address] ([facility]) (test sfsy=545) [place] [address] [id number] 20:01:00 Test Item Value Reference Range Comments ACTIVATED CLOTTING TIME 307 sec TESTED AT [address] ([facility]) (test bwik=834) [place] [id number] CREATINE KINASE (CK), TOTAL AND [id number] 19:15:00 Test Item Value Reference Range Comments CREATINE KINASE TOTAL (BEAKER) (test vong=872) 38 U/L 29-200 CREATINE KINASE-MB (BEAKER) (test fxzw=686) 0.9 ng/mL 0.0-6.6 CREATINE KINASE-MB INDEX (BEAKER) (test dnnc=438) 2.4 % Effective 03/29/2014: CK-MB Reference Range ChangeNew: 0.0-6.6 Previous: 0.0- 4.9CK-MB Reference Range:<6.7 Normal6.7-10.0 Borderline>10.0 AbnormalTROPONIN [id number] 19:15:00 Test Item Value Reference Range Comments TROPONIN I (BEAKER) (test yoon=414) 0.01 ng/mL 0.00-0.03 Effective 03/29/2014: Reference Range [...] acute neurological disease, and persistent tachyarrhythmia.BASIC METABOLIC [id number] 19:14:00 Test Item Value Reference Range Comments SODIUM (BEAKER) (test 137 meq/L 136-145 mdfv=393) POTASSIUM (BEAKER) (test 3.6 meq/L 3.5-5.1 eaka=406) CHLORIDE (BEAKER) (test 106 meq/L 98-107 puma=219) CO2 (BEAKER) (test 21 meq/L 22-29 apat=043) BLOOD UREA NITROGEN 10 mg/dL 7-21 (BEAKER) (test uizu=319) CREATININE (BEAKER) (test 0.60 mg/dL 0.57-1.25 clmg=230) GLUCOSE RANDOM (BEAKER) 106 mg/dL 70-105 (test pztv=768) CALCIUM (BEAKER) (test 8.7 mg/dL 8.4-10.2 wuzt=625) EGFR (BEAKER) (test mL/min/1.73 sq m INSUFFICIENT CLINICAL DATA xkzx=5990) TO CALCULATE ESTIMATED GFR. B-TYPE NATRIURETIC FACTOR (BNP)2016-06-26 19:12:00 Test Item Value Reference Range Comments B-TYPE NATRIURETIC PEPTIDE (BEAKER) (test qfgp=887) 20 pg/mL 0-100 [id number] 19:07:00 Test Item Value Reference Range Comments MAGNESIUM (BEAKER) (test honh=915) 1.9 mg/dL 1.6-2.6 [id number] 18:53:00 Test Item Value Reference Range Comments PARTIAL THROMBOPLASTIN TIME (BEAKER) (test 32.0 seconds 22.5-36.0 qpii=549) PROTHROMBIN [id number] 18:52:00 Test Item Value Reference Range Comments PROTIME (BEAKER) (test pvte=577) 14.3 seconds 11.7-14.7 INR (BEAKER) (test bkxj=477) 1.1 <=5.9 RECOMMENDED COUMADIN/WARFARIN INR THERAPY RANGESSTANDARD DOSE: 2.0 - 3.0 Includes: PROPHYLAXIS forvenous thrombosis, systemic embolization; TREATMENT for venous thrombosis and/or pulmonary embolus.HIGH RISK: Target INR is 2.5-3.5 for patients with mechanical heart valves.CBC W/PLT COUNT & AUTO [id number] 18:46:00 Test Item Value Reference Range Comments WHITE BLOOD CELL COUNT (BEAKER) (test ognp=269) 12.9 K/ L 4.0-10.0 RED BLOOD CELL COUNT (BEAKER) (test ecpo=403) 3.56 M/ L 4.00-5.00 HEMOGLOBIN (BEAKER) (test rexw=705) 10.8 GM/DL 12.0-15.0 HEMATOCRIT (BEAKER) (test tasi=338) 31.2 % 36.0-45.0 MEAN CORPUSCULAR VOLUME (BEAKER) (test kwqo=864) 87.8 fL 82.0-99.0 MEAN CORPUSCULAR HEMOGLOBIN (BEAKER) (test 30.5 pg 27.0-33.0 fpzs=496) MEAN CORPUSCULAR HEMOGLOBIN CONC (BEAKER) (test 34.7 GM/DL 32.0-36.0 gkcl=528) RED CELL DISTRIBUTION WIDTH (BEAKER) (test 12.9 % 10.3-14.2 waaq=864) PLATELET COUNT (BEAKER) (test jtoc=075) 313 K/CU MM 150-430 MEAN PLATELET VOLUME (BEAKER) (test wura=379) 8.0 fL 6.5-10.5 NUCLEATED RED BLOOD CELLS (BEAKER) (test 0 /100 WBC 0-0 rvun=454) NEUTROPHILS RELATIVE PERCENT (BEAKER) (test 88 % fquy=267) LYMPHOCYTES RELATIVE PERCENT (BEAKER) (test 10 % ibmw=493) MONOCYTES RELATIVE PERCENT (BEAKER) (test 2 % loyu=929) EOSINOPHILS RELATIVE PERCENT (BEAKER) (test 0 % xcto=181) BASOPHILS RELATIVE PERCENT (BEAKER) (test 0 % jfdg=692) NEUTROPHILS ABSOLUTE COUNT (BEAKER) (test 11.40 K/ L 1.80-8.00 rmvk=089) LYMPHOCYTES ABSOLUTE COUNT (BEAKER) (test 1.24 K/ L 1.48-4.50 nfla=551) MONOCYTES ABSOLUTE COUNT (BEAKER) (test 0.21 K/ L 0.00-1.30 aqtl=178) EOSINOPHILS ABSOLUTE COUNT (BEAKER) (test 0.03 K/ L 0.00-0.50 mree=252) BASOPHILS ABSOLUTE COUNT (BEAKER) (test 0.00 K/ L 0.00-0.20 leha=505) 0.00
== END 2019-03-16 11:32 | disposition home or self-care (01) ==
LOC: ER 09:57
DX: N93.9 Abnormal uterine and vaginal bleeding, unspecified (principal); I10 Essential (primary) hypertension; E03.9 Hypothyroidism, unspecified; Z95.818 Presence of other cardiac implants and grafts; Z79.01 Long term (current) use of anticoagulants; Z79.82 Long term (current) use of aspirin
CPT/HCPCS: 36415; 76830; 80048; 81003; 81025; 85025; 99284

== ENCOUNTER 2022-10-11 16:01 | Emergency (ER) | payer OTHER ==
--- OUTSIDE RECORDS SUMMARY | 2022-10-11 16:05 | XMS REPORT | Continuity of Care Document ---
:1975 Author Organization [facility] t Address [address] [facility]. [address] [place] [address] Care Team Providers Name Role Phone AYANNA GAONA JR Primary Care Physician Unavailable Rafaela Strickland Attending Clinician Unknown, Attending Attending Clinician Unavailable RAFAELA KONG Attending Clinician Unavailable JAYSON MICHAELS Attending Clinician Unavailable Brando BALLESTEROS, Jayson Attending Clinician Gwendolyn Morales RN Attending Clinician Unavailable ЕКАТЕРИНА KENT Attending Clinician Unavailable Екатерина Zarate Attending Clinician Doctor Unassigned, Staples Attending Clinician Unavailable King DAVI MD, James C Attending Clinician JOLIE LEAL III Attending Clinician Unavailable MICHAEL SHELLEY Attending Clinician Unavailable HASMUKH MANRIQUEZ Attending Clinician Unavailable HASMUKH MANRIQUEZ Admitting Clinician Unavailable Payers Payer Name Policy Type Policy Number Effective Date Expiration Date S jah KWON DEGREES [id number] 2022 00:00:00 BENEFIT OON Problems Condition Condition Condition Status Onset Resolution Last Treating Co mments Source Name Details Category Date Date Treatment Clinician Date ACS (acute ACS (acute Disease Recurre [facility] coronary coronary nce 2-16 [facility]) syndrome) 00:00: [facility]i [facility] 00 Center CAD CAD Disease Active [facility] (coronary (coronary 2-15 [facility] artery artery 00:00: Medical disease) disease) 00 Center Trichomona Trichomona Disease Active U nivers l l 3-06 ity of vulvovagin vul[place]ovagin [place] itis itis 00 Medical Branch Surveillan Surveillan Disease Active Overview : Univers ce of ce of 07-07 Formattin ity of previously previously 00:00: g of this [place] prescribed prescribed 00 note Me dical contracept contracept might be Branch johanna method johanna method different from the original. ICD10 Diagnosis Term Roll Dough Divider Utility History of History of Disease Active U nivers tubal tubal 07-07 ity of ligation ligation 00:00: [place] 00 Medical Branch Yeast Yeast Disease Active Univers infection infection 07-07 ity of of the of the 00:00: [place] vagina vagina 00 Medical Branch Need for Need for Disease Active Unive rs Tdap Tdap 07-07 ity of vaccinatio vaccinatio 00:[place] n n 00 Medical Branch Obesity Obesity Disease Active Overview: Univ ers 07-07 Formattin ity of 00:00: g of this [place] 00 note Medical might be Branch different from the original. ICD10 Diagnosis Term Roll Dough Divider Utility Encounter Encounter Disease Active Overview: Univers for for 07-07 Formattin ity of routine routine 00:00: g of this [place] gynecologi gynecologi 00 note Me dical guerrero guerrero might be Branch examinatio examinatio different n n from the original. ICD10 Diagnosis Term Roll Dough Divider Utility No known No known Disease Unive rs active active ity of problems problems [facility] Allergies, Adverse Reactions, Alerts Allergy Allergy Status Severity Reaction(s) Onset Inactive Treating Comm ents Source Name Type Date Date Clinician NO KNOWN Drug Active Univers ALLERGIE Class ity of S [facility] Family History Family Member Diagnosis Comments Start Date Stop Date Source Maternal grandfather Diabetes [facility] Maternal grandmother Diabetes [facility] Maternal grandmother Heart disease C HI [facility] Natural mother Hypertension [facility] Social History Social Habit Start Date Stop Date Quantity Comments Source Exposure to 2022-06-30 2022-07-10 Not sure University SARS-CoV-2 00:00:00 16:14:00 [facility] (event) Branch Tobacco use and 2021-05-18 2021-05-18 Smokeless tobacco Un iversity of exposure 00:00:00 00:00:00 non-user [facility] Alcohol intake 2016-07-02 2016-07-02 Current CLAUDIO [place] es 00:00:00 00:00:00 non-drinker of Medical Ce nter alcohol (finding) Sex [birth year] At [birth year] CLAUDIO Conde kes 00:00:00 [facility]:00 [facility] Smoking Status Start Date Stop Date Source Never smoked tobacco [facility] Medications Ordered Filled Start Stop Current Ordering Indication Dosage Frequency Signature Comments Components Source Medication Medication Date Date Medication? Clinician (SIG) Name Name dexamethaso 2022- No [id number] 10mg Univers ne 07-10 ity of (DECADRON) 23:45: 22:45 [place] injection 00 :00 Medical 10 mg Branch dexamethaso 2022- No [id number] 10mg 10 mg, Univers ne 07-10 Intramuscu ity of (DECADRON) 23:45: 22:45 lar, ONCE, [place] injection 00 :00 1 dose, On Medi guerrero 10 mg 07/10/22 Branch at 1745, Routine amoxicillin 2022- No [id number] 1{tbl} Take 1 Univers -clavulanat 07-10 tablet by it y of e 00:00: 05:59 mouth in [place] (AUGMENTIN) 00 :00 the [facility] 875-125 mg morning Branch per tablet and 1 tablet in the evening. Do all this for 10 days. predniSONE 2022- No [id number] 40mg Take 2 Univers 20 mg 07-10 tablets by ity of tablet 00:00: 05:59 mouth in [place] 00 :00 the Medical morning Branch for 5 days. benzonatate Yes [id number] 200mg Take 2 Univers 100 mg 2-12 capsules ity of capsule 00:00: by mouth [place] 00 every 8 Medical (eight) Branch hours as needed for Cough. bromphenira 2022-0 Yes [id number] 5mL Take 5 mL Univers mine-pseudo 2-12 by mouth 4 it y of ephedrine-D 00:00: (four[place] (BROMFED 00 times Medical DM) 2-30-10 daily as Bran ch mg/5 mL needed for syrup Congestion /Allergies . benzonatate Yes [id number] 200mg Take 2 Univers 100 mg 2-12 capsules ity of capsule 00:00: by mouth [place] 00 every 8 Medical (eight) Branch hours as needed for Cough. bromphenira Yes [id number] 5mL Take 5 mL Univers mine-pseudo 2-12 by mouth 4 it y of ephedrine-D 00:00: (four[place] (BROMFED 00 times Medical DM) 2-30-10 daily as Bran ch mg/5 mL needed for syrup Congestion /Allergies . amoxicillin 2022- No [id number] 500mg Take 1 Univers 500 mg 2-04 12- tablet by ity of tablet 00:00: 05:59 mouth in [place] 00 :00 the Medical morning Branch and 1 tablet in the evening. Do all this for 10 days. acetaminoph 2021-05- No [id number] 650mg Univers en 05-17 11-06 ity of (TYLENOL) 16:30: 15:31 [place] tablet 650 00 :00 Medical mg Branch acetaminoph 2021-05- No [id number] 650mg 650 mg, Univers en 05-17 11-06 Oral, ity of (TYLENOL) 16:30: 15:31 ONCE, 1 [place] 650 00 :00 dose, On Medic al mg Sun Branch 03/17/22 at 1030, Routine ondansetron 2021-05 Yes [id number] 4mg Take 1 Univers 4 mg 1-06 tablet by ity of disintegrat 00:00: mouth [place] ing tablet 00 every 8 Medica l (eight) Branch hours as needed for Nausea and Vomiting (N/V). guaiFENesin 2021-05 Yes [id number] 400mg Take 1 Univers 400 mg 1-06 tablet by ity of tablet 00:00: mouth [place] 00 every 4 Medical (four) Branch hours as needed for Cough. benzonatate 2021-05 Yes [id number] 200mg Take 2 Univers 100 mg 1-06 capsules ity of capsule 00:00: by mouth [place] 00 every 8 Medical (eight) Branch hours as needed for Cough. azelastine 2021-05 Yes [id number] 1{spray Use 1 Univers 137 mcg 1-06 } [place] in ity of (0.1 %) 00:00: each [place] nasal spray 00 nostril in [facility] the Branch morning and 1 [place] in the evening. Use in each nostril as directed ondansetron 2021-05 Yes [id number] 4mg Take 1 Univers 4 mg 1-06 tablet by ity of disintegrat 00:00: mouth [place] ing tablet 00 every 8 Medica l (eight) Branch hours as needed for Nausea and Vomiting (N/V). guaiFENesin 2021-05 Yes [id number] 400mg Take 1 Univers 400 mg 1-06 tablet by ity of tablet 00:00: mouth [place] 00 every 4 Medical (four) Branch hours as needed for Cough. azelastine 2021-05 Yes [id number] 1{spray Use 1 Univers 137 mcg 1-06 } [place] in ity of (0.1 %) 00:00: each [place] nasal spray 00 nostril in [facility] the Branch morning and 1 [place] in the evening. Use in each nostril as directed ondansetron 2021-05 Yes [id number] 4mg Take 1 Univers 4 mg 1-06 tablet by ity of disintegrat 00:00: mouth [place] ing tablet 00 every 8 Medica l (eight) Branch hours as needed for Nausea and Vomiting (N/V). guaiFENesin 2021-05 Yes [id number] 400mg Take 1 Univers 400 mg 1-06 tablet by ity of tablet 00:00: mouth [place] 00 every 4 Medical (four) Branch hours as needed for Cough. azelastine 2021-05 Yes [id number] 1{spray Use 1 Univers 137 mcg 1-06 } [place] in ity of (0.1 %) 00:00: each [place] nasal spray 00 nostril in [facility] the Branch morning and 1 [place] in the evening. Use in each nostril as directed ondansetron 2021-05 Yes [id number] 4mg Take 1 Univers 4 mg 1-06 tablet by ity of disintegrat 00:00: mouth [place] ing tablet 00 every 8 Medica l (eight) Branch hours as needed for Nausea and Vomiting (N/V). guaiFENesin 2021-05 Yes [id number] 400mg Take 1 Univers 400 mg 1-06 tablet by ity of tablet 00:00: mouth [place] 00 every 4 Medical (four) Branch hours as needed for Cough. benzonatate 2021-05 Yes [id number] 200mg Take 2 Univers 100 mg 1-06 capsules ity of capsule 00:00: by mouth [place] 00 every 8 Medical (eight) Branch hours as needed for Cough. azelastine 2021-05 Yes [id number] 1{spray Use 1 Univers 137 mcg 1-06 } [place] in ity of (0.1 %) 00:00: each [place] nasal spray 00 nostril in Al dical the Branch morning and 1 [place] in the evening. Use in each nostril as directed benzonatate 2021-05- No [id number] 200mg Take 2 Univers 100 mg 1-06 02-12 capsules ity of capsule 00:00: 00:00 by mouth [place] 00 :00 every 8 Medical (eight) Branch hours as needed for Cough. oseltamivir 2021-05- No [id number] 45mg Take 7.5 Univers 6 mg/mL 1- 11-12 mL by ity of suspension 00:00: 05:59 mouth in [place] 00 :00 the Medical morning Branch and 7.5 mL in the evening. Do all this for 5 days. oseltamivir 2021-05- No [id number] 45mg Take 7.5 Univers 6 mg/mL 1-06 11-12 mL by ity of suspension 00:00: 05:59 mouth in [place] 00 :00 the [facility] morning Branch and 7.5 mL in the evening. Do all this for 5 days. aspirin 81 Yes 81mg Take 81 mg U nivers mg chewable 9-06 by mouth ity of tablet 15:44: daily. [address] aspirin 81 0 Yes 81mg Take 81 mg U nivers mg chewable 9-06 by mouth ity of tablet 15:44: daily. [address] aspirin 81 0 Yes 81mg Take 81 mg U nivers mg chewable 9-06 by mouth ity of tablet 15:44: daily. [address] aspirin 81 0 Yes 81mg Take 81 mg U nivers mg chewable 9-06 by mouth ity of tablet 15:44: daily. [address] dexAMETHaso 2021- No [id number] 12mg Univers ne 01-12 ity of (DECADRON) 14:50: 14:55 [place] tablet 12 00 :00 Medical mg Branch dexAMETHaso 2021- No [id number] 12mg 12 mg, Univers ne 01-12 09-03 Oral, ity of (DECADRON) 14:50: 14:55 ONCE, 1 Noe as tablet 12 00 :00 dose, On Medica l mg 01/12/22 Branch at 1000, Routine cetirizine Yes [id number] 10mg Take 1 Univers (ZYRTEC) 10 9-03 tablet by ity of mg tablet 00:00: [place] 00 the Medical morning. Branch fluticasone Yes [id number] 2{spray Use 2 Univers propionate 9-03 } Sprays in ity of 50 00:00: each [place] mcg/actuati 00 nostril in Me dical on nasal the Branch spray morning. cetirizine Yes [id number] 10mg Take 1 Univers (ZYRTEC) 10 9-03 tablet by ity of mg tablet 00:00: [place] 00 the Medical morning. Branch fluticasone Yes [id number] 2{spray Use 2 Univers propionate 9-03 } Sprays in ity of 50 00:00: each [place] mcg/actuati 00 nostril in Me dical on nasal the Branch spray morning. cetirizine Yes [id number] 10mg Take 1 Univers (ZYRTEC) 10 9-03 tablet by ity of mg tablet 00:00: mouth [place] 00 the Medical morning. Branch fluticasone 0 Yes [id number] 2{spray Use 2 Univers propionate 9-03 } Sprays in ity of 50 00:00: each [place] mcg/actuati 00 nostril in Me dical on nasal the Branch spray morning. cetirizine 0 Yes [id number] 10mg Take 1 Univers (ZYRTEC) 10 9-03 tablet by ity of mg tablet 00:00: mouth [place] 00 the Medical morning. Branch fluticasone 0 Yes [id number] 2{spray Use 2 Univers propionate 9-03 } Sprays in ity of 50 00:00: each [place] mcg/actuati 00 nostril in Me dical on nasal the Branch spray morning. cetirizine 2-0 Yes [id number] 10mg Take 1 Univers (ZYRTEC) 10 9-03 tablet by ity of mg tablet 00:00: mouth [place] 00 the Medical morning. Branch fluticasone 2-0 Yes [id number] 2{spray Use 2 Univers propionate 9-03 } Sprays in ity of 50 00:00: each [place] mcg/actuati 00 nostril in Me dical on nasal the Branch spray morning. cetirizine 2-0 Yes [id number] 10mg Take 1 Univers (ZYRTEC) 10 9-03 tablet by ity of mg tablet 00:00: mouth [place] 00 the Medical morning. Branch fluticasone 2021-0 Yes [id number] 2{spray Use 2 Univers propionate 9-03 } Sprays in ity of 50 00:00: each [place] mcg/actuati 00 nostril in Me dical on nasal the Branch spray morning. atorvastati 2021-0 Yes 20mg Take 20 mg Univers n 20 mg 8-30 by mouth ity of tablet 00:00: in the [place] 00 morning. Medical Branch atorvastati 2-0 Yes 20mg Take 20 mg Univers n 20 mg 8-30 by mouth ity of tablet 00:00: in the [place] 00 morning. Medical Branch atorvastati 2-0 Yes 20mg Take 20 mg Univers n 20 mg 8-30 by mouth ity of tablet 00:00: in the [place] 00 morning. Medical Branch atorvastati 2-0 Yes 20mg Take 20 mg Univers n 20 mg 8-30 by mouth ity of tablet 00:00: in the [place] 00 morning. Medical Branch atorvastati 2022-0 Yes 20mg Take 20 mg Univers n 20 mg 8-30 by mouth ity of tablet 00:00: in the [place] 00 morning. Medical Branch atorvastati 2022-0 Yes 20mg Take 20 mg Univers n 20 mg 8-30 by mouth ity of tablet 00:00: in the [place] 00 morning. Medical Branch prasugreL 2-0 Yes 10mg Take 10 mg Un ced 10 mg 8-22 by mouth ity of tablet 00:00: in the [place] 00 morning. Medical Branch prasugreL 2022-0 Yes 10mg Take 10 mg Un ced 10 mg 8-22 by mouth ity of tablet 00:00: in the [place] 00 morning. Medical Branch prasugreL 2022-0 Yes 10mg Take 10 mg Un ced 10 mg 8-22 by mouth ity of tablet 00:00: in the [place] 00 morning. Medical Branch prasugreL 2022-0 Yes 10mg Take 10 mg Un ced 10 mg 8-22 by mouth ity of tablet 00:00: in the [place] 00 morning. Medical Branch prasugreL 2022-0 Yes 10mg Take 10 mg Un ced 10 mg 8-22 by mouth ity of tablet 00:00: in the [place] 00 morning. Medical Branch prasugreL 2022-0 Yes 10mg Take 10 mg Un ced 10 mg 8-22 by mouth ity of tablet 00:00: in the [place] 00 morning. Medical Branch hydrOXYchlo 2022-0 Yes TAKE ONE Un ced roQUINE 200 8-03 (1) ity of mg tablet 00:00: TABLET(S) [place]e as 00 BY MOUTH 2 Medical TIMES Branch DAILY WITH A MEAL OR A GLASS OF MILK. hydrOXYchlo 2022-0 Yes TAKE ONE Un ced roQUINE 200 8-03 (1) ity of mg tablet 00:00: TABLET(S) [place] as 00 BY MOUTH 2 Medical TIMES Branch DAILY WITH A MEAL OR A GLASS OF MILK. hydrOXYchlo 2022-0 Yes TAKE ONE Un ced roQUINE 200 8-03 (1) ity of mg tablet 00:00: TABLET(S) [place] as 00 BY MOUTH 2 Medical TIMES Branch DAILY WITH A MEAL OR A GLASS OF MILK. hydrOXYchlo 2022-0 Yes TAKE ONE Un ced roQUINE 200 8-03 (1) ity of mg tablet 00:00: TABLET(S) Noe as 00 BY MOUTH 2 Medical TIMES Branch DAILY WITH A MEAL OR A GLASS OF MILK. hydrOXYchlo 2022-0 Yes TAKE ONE Un ced roQUINE 200 8-03 (1) ity of mg tablet 00:00: TABLET(S) [place]e as 00 BY MOUTH 2 Medical TIMES Branch DAILY WITH A MEAL OR A GLASS OF MILK. hydrOXYchlo 2022-0 Yes TAKE ONE Un ced roQUINE 200 8-03 (1) ity of mg tablet 00:00: TABLET(S) Noe as 00 BY MOUTH 2 Medical TIMES Branch DAILY WITH A MEAL OR A GLASS OF MILK. aspirin 81 2022-0 Yes 81mg Take 81 mg U nivers mg chewable 1-07 by mouth ity of tablet 09:15: daily. [address] aspirin 81 2022-0 Yes 81mg Take 81 mg U nivers mg chewable 1-07 by mouth ity of tablet 09:15: daily. [address] aspirin 81 2022-0 Yes 81mg Take 81 mg U nivers mg chewable 1-07 by mouth ity of tablet 09:15: daily. [address] Branch benzonatate 2022-0 Yes [id number] 100mg Take 1 Univers 100 mg 1-07 capsule by ity of capsule 00:00: mouth 00 every 8 Medical (eight) Branch hours as needed for Cough. benzonatate 2022-0 2022- No [id number] 100mg Take 1 Univers 100 mg 1-07 11-06 capsule by ity of capsule 00:00: 00:00 mouth [place] 00 :00 every 8 Medical (eight) Branch hours as needed for Cough. hydrOXYchlo 2022-0 Yes 200mg Take 200 U nivers roQUINE 200 1-05 mg by ity of mg tablet 00:00: mouth (two) Medical times Branch daily. hydrOXYchlo 2022-0 Yes 200mg Take 200 U nivers roQUINE 200 1-05 mg by ity of mg tablet 00:00: mouth (two) Medical times Branch daily. hydrOXYchlo 2022-0 Yes 200mg Take 200 U nivers roQUINE 200 1-05 mg by ity of mg tablet 00:00: mouth (two) Medical times Branch daily. hydrOXYchlo 2022-0 Yes 200mg Take 200 U nivers roQUINE 200 1-05 mg by ity of mg tablet 00:00: mouth (two) Medical times Branch daily. hydrOXYchlo 2022-0 Yes 200mg Take 200 U nivers roQUINE 200 1-05 mg by ity of mg tablet 00:00: mouth (two) Medical times Branch daily. hydrOXYchlo 2022-0 Yes 200mg Take 200 U nivers roQUINE 200 1-05 mg by ity of mg tablet 00:00: mouth (two) Medical times Branch daily. hydrOXYchlo 2022-0 Yes 200mg Take 200 U nivers roQUINE 200 1-05 mg by ity of mg tablet 00:00: mouth 2 00 (two) Medical times Branch daily. methotrexat 2020-05 Yes TAKE 6 Univ ers e 2.5 mg 2-24 TABLET(S) ity of tablet 00:00: BY MOUTH [place] 00 ONCE A Medical WEEK. Branch methotrexat 2020-05 Yes TAKE 6 Univ ers e 2.5 mg 2-24 TABLET(S) ity of tablet 00:00: BY MOUTH [place] 00 ONCE A Medical WEEK. Branch methotrexat 2020-05 Yes TAKE 6 Univ ers e 2.5 mg 2-24 TABLET(S) ity of tablet 00:00: BY MOUTH [place] 00 ONCE A Medical WEEK. Branch methotrexat 2020-05 Yes TAKE 6 Univ ers e 2.5 mg 2-24 TABLET(S) ity of tablet 00:00: BY MOUTH [place] 00 ONCE A Medical WEEK. Branch methotrexat 2020-05 Yes TAKE 6 Univ ers e 2.5 mg 2-24 TABLET(S) ity of tablet 00:00: BY MOUTH [place] 00 ONCE A Medical WEEK. Branch methotrexat 2020-053- No TAKE 6 Uni vers e 2.5 mg 2-24 02-12 TABLET(S) ity o f tablet 00:00: 00:00 BY MOUTH [place] 00 :00 ONCE A Medical WEEK. Branch aspirin 81 2017-05 Yes 81mg Take 81 mg U nivers mg chewable 0-05 by mouth ity of tablet 13:30: daily. [place] 00 Medical Branch diclofenac 2017-05 Yes 50mg Take 1 Unive rs 50 mg EC 0-05 tablet by ity of tablet 00:00: mouth 3 (three) Medical times Branch daily as needed for Pain. diclofenac 2017-05 Yes 50mg Take 1 Unive rs 50 mg EC 0-05 tablet by ity of tablet 00:00: mouth 3 (three) Medical times Branch daily as needed for Pain. diclofenac 2017-05 Yes 50mg Take 1 Unive rs 50 mg EC 0-05 tablet by ity of tablet 00:00: mouth 3 (three) Medical times Branch daily as needed for Pain. diclofenac 2017-05 Yes 50mg Take 1 Unive rs 50 mg EC 0-05 tablet by ity of tablet 00:00: mouth 3 (three) Medical times Branch daily as needed for Pain. diclofenac 2017-05 Yes 50mg Take 1 Unive rs 50 mg EC 0-05 tablet by ity of tablet 00:00: mouth 3 (three) Medical times Branch daily as needed for Pain. diclofenac 2017-05 Yes 50mg Take 1 Unive rs 50 mg EC 0-05 tablet by ity of tablet 00:00: mouth 3 (three) Medical times Branch daily as needed for Pain. diclofenac 2017-05 Yes 50mg Take 1 Unive rs 50 mg EC 0-05 tablet by ity of tablet 00:00: mouth 3 (three) Medical times Branch daily as needed for Pain. diclofenac 2017-05 Yes 50mg Take 1 Unive rs 50 mg EC 0-05 tablet by ity of tablet 00:00: mouth 3 (three) Medical times Branch daily as needed for Pain. clindamycin Yes Apply to Un ced 1 % gel 5-13 area(s) 2 ity of 00:00: (two) [place] 00 times Medical daily. Branch brimonidine Yes [id number] 1{dose} Apply 1 Univers (MIRVASO) 5-13 Dose to ity of 0.33 % gel 00:00: area(s[place] 00 daily. Medical Branch Sulfacetami Yes [id number] Apply to Univers de 5-13 area(s) ity of Sodium-Sulf 00:00: once daily [place] ur 00 as needed Medical (ROSANIL) (acne and Branc h 10-5 % facial (w/w) redness). cleanser clindamycin Yes Apply to Un ced 1 % gel 5-13 area(s) 2 ity of 00:00: (two) [place] 00 times Medical daily. Branch brimonidine Yes [id number] 1{dose} Apply 1 Univers (MIRVASO) 5-13 Dose to ity of 0.33 % gel 00:00: area(s) [place] 00 daily. Medical Branch Sulfacetami Yes [id number] Apply to Univers de 5-13 area(s) ity of Sodium-Sulf 00:00: once daily [place] ur 00 as needed Medical (ROSANIL) (acne and Branc h 10-5 % facial (w/w) redness). cleanser clindamycin 2017-0 Yes Apply to Un ced 1 % gel 5-13 area(s) 2 ity of 00:00: (two) [place] 00 times Medical daily. Branch brimonidine Yes [id number] 1{dose} Apply 1 Univers (MIRVASO) 5-13 Dose to ity of 0.33 % gel 00:00: area(s) [place] 00 daily. Medical Branch Sulfacetami Yes [id number] Apply to Univers de 5-13 area(s) ity of Sodium-Sulf 00:00: once daily [place] ur 00 as needed Medical (ROSANIL) (acne and Branc h 10-5 % facial (w/w) redness). cleanser clindamycin 2017- Yes Apply to Un ced 1 % gel 5-13 area(s) 2 ity of 00:00: (two) [place] 00 times Medical daily. Branch brimonidine Yes [id number] 1{dose} Apply 1 Univers (MIRVASO) 5-13 Dose to ity of 0.33 % gel 00:00: area(s) [place] 00 daily. Medical Branch Sulfacetami Yes [id number] Apply to Univers de 5-13 area(s) ity of Sodium-Sulf 00:00: once daily [place] ur 00 as needed Medical (ROSANIL) (acne and Branc h 10-5 % facial (w/w) redness). cleanser clindamycin Yes Apply to Un ced 1 % gel 5-13 area(s) 2 ity of 00:00: (two) [place] 00 times Medical daily. Branch brimonidine Yes [id number] 1{dose} Apply 1 Univers (MIRVASO) 5-13 Dose to ity of 0.33 % gel 00:00: area(s) [place] 00 daily. Medical Branch Sulfacetami 2017- Yes [id number] Apply to Univers de 5-13 area(s) ity of Sodium-Sulf 00:00: once daily [place] ur 00 as needed Medical (ROSANIL) (acne and Branc h 10-5 % facial (w/w) redness). cleanser clindamycin 2018-0 Yes Apply to Un ced 1 % gel 5-13 area(s) 2 ity of 00:00: (two) [place] 00 times Medical daily. Branch brimonidine Yes [id number] 1{dose} Apply 1 Univers (MIRVASO) 5-13 Dose to ity of 0.33 % gel 00:00: area(s) [place] 00 daily. Medical Branch Sulfacetami Yes [id number] Apply to Univers de 5-13 area(s) ity of Sodium-Sulf 00:00: once daily [place] ur 00 as needed Medical (ROSANIL) (acne and Branc h 10-5 % facial (w/w) redness). cleanser clindamycin Yes Apply to Un ced 1 % gel 5-13 area(s) 2 ity of 00:00: (two) [place] 00 times Medical daily. Branch brimonidine Yes [id number] 1{dose} Apply 1 Univers (MIRVASO) 5-13 Dose to ity of 0.33 % gel 00:00: area(s) [place] 00 daily. Medical Branch Sulfacetami Yes [id number] Apply to Univers de 5-13 area(s) ity of Sodium-Sulf 00:00: once daily [place] ur 00 as needed Medical (ROSANIL) (acne and Branc h 10-5 % facial (w/w) redness). cleanser clindamycin Yes Apply to Un ced 1 % gel 5-13 area(s) 2 ity of 00:00: (two) [place] 00 times Medical daily. Branch brimonidine Yes [id number] 1{dose} Apply 1 Univers (MIRVASO) 5-13 Dose to ity of 0.33 % gel 00:00: area(s) [place] 00 daily. Medical Branch Sulfacetami Yes [id number] Apply to Univers de 5-13 area(s) ity of Sodium-Sulf 00:00: once daily [place] ur 00 as needed Medical (ROSANIL) (acne and Branc h 10-5 % facial (w/w) redness). cleanser atorvastati Yes TAKE ONE Un ced n 20 mg 5-08 (1) ity of tablet 00:00: TABLET(S) BY MOUTH Medical ONCE A Branch DAY. levothyroxi 2018-0 Yes 150ug 150 mcg. U nivers ne 125 mcg 5-08 ity of tablet 00:00: [facility] atorvastati 2017-0 Yes TAKE ONE Un ced n 20 mg 5-08 (1) ity of tablet 00:00: TABLET(S) BY MOUTH Medical ONCE A Branch DAY. levothyroxi 2018-0 Yes 150ug 150 mcg. U nivers ne 125 mcg 5-08 ity of tablet 00:00: [facility] atorvastati 2017-0 Yes TAKE ONE Un ced n 20 mg 5-08 (1) ity of tablet 00:00: TABLET(S) BY MOUTH Medical ONCE A Branch DAY. levothyroxi 2018-0 Yes 150ug 150 mcg. U nivers ne 125 mcg 5-08 ity of tablet 00:00: [facility] atorvastati 2017-0 Yes TAKE ONE Un ced n 20 mg 5-08 (1) ity of tablet 00:00: TABLET(S) BY MOUTH Medical ONCE A Branch DAY. levothyroxi 2018-0 Yes 150ug 150 mcg. U nivers ne 125 mcg 5-08 ity of tablet 00:00: [facility] atorvastati 2017-0 Yes TAKE ONE Un ced n 20 mg 5-08 (1) ity of tablet 00:00: TABLET(S) BY MOUTH Medical ONCE A Branch DAY. levothyroxi 2018-0 Yes TAKE ONE Un ced ne 125 mcg 5-08 (1) ity of tablet 00:00: TABLET(S) BY MOUTH Medical ONCE A Branch DAY. atorvastati 2018-0 Yes TAKE ONE Un ced n 20 mg 5-08 (1) ity of tablet 00:00: TABLET(S) BY MOUTH Medical ONCE A Branch DAY. levothyroxi 2018-0 Yes 150ug 150 mcg. U nivers ne 125 mcg 5-08 ity of tablet 00:00: [facility] atorvastati 2018-0 Yes TAKE ONE Un ced n 20 mg 5-08 (1) ity of tablet 00:00: TABLET(S) BY MOUTH Medical ONCE A Branch DAY. levothyroxi 2018-0 Yes 150ug 150 mcg. U nivers ne 125 mcg 5-08 ity of tablet 00:00: Medical Branch atorvastati 2017-0 Yes TAKE ONE Un ced n 20 mg 5-08 (1) ity of tablet 00:00: TABLET(S) [place] 00 BY MOUTH Medical ONCE A Branch DAY. levothyroxi 2018-0 Yes 150ug 150 mcg. U nivers ne 125 mcg 5-08 ity of tablet 00:00: Medical Branch metoprolol 2018-0 Yes TAKE Univers succinate 4-27 ONE-HALF ity of XL 50 mg 24 00:00: (2) [place] hr tablet 00 TABLET(S) Medic al BY MOUTH Branch TWICE A DAY. prasugrel 2018-0 Yes TAKE ONE Univ ers 10 mg 4-27 (1) ity of tablet 00:00: TABLET(S) [place] 00 BY MOUTH Medical ONCE A Branch DAY. metoprolol 2017-0 Yes TAKE Univers succinate 4-27 ONE-HALF ity of XL 50 mg 24 00:00: (2) [place] hr tablet 00 TABLET(S) Medic al BY MOUTH Branch TWICE A DAY. prasugrel 2017-0 Yes TAKE ONE Univ ers 10 mg 4-27 (1) ity of tablet 00:00: TABLET(S) [place] BY MOUTH Medical ONCE A Branch DAY. metoprolol 2017-0 Yes TAKE Univers succinate 4-27 ONE-HALF ity of XL 50 mg 24 00:00: (2) [place] hr tablet 00 TABLET(S) Medic al BY MOUTH Branch TWICE A DAY. prasugrel 2018-0 Yes TAKE ONE Univ ers 10 mg 4-27 (1) ity of tablet 00:00: TABLET(S) [place] 00 BY MOUTH Medical ONCE A Branch DAY. metoprolol 2017-0 Yes TAKE Univers succinate 4-27 ONE-HALF ity of XL 50 mg 24 00:00: (2) [place] hr tablet 00 TABLET(S) Medic al BY MOUTH Branch TWICE A DAY. prasugrel 2018-0 Yes TAKE ONE Univ ers 10 mg 4-27 (1) ity of tablet 00:00: TABLET(S) [place] 00 BY MOUTH Medical ONCE A Branch DAY. metoprolol 2017-0 Yes TAKE Univers succinate 4-27 ONE-HALF ity of XL 50 mg 24 00:00: (2) [place] hr tablet 00 TABLET(S) Medic al BY MOUTH Branch TWICE A DAY. prasugrel Yes TAKE ONE Univ ers 10 mg 4-27 (1) ity of tablet 00:00: TABLET(S) [place] 00 BY MOUTH Medical ONCE A Branch DAY. metoprolol Yes TAKE Univers succinate 4-27 ONE-HALF ity of XL 50 mg 24 00:00: (2) [place] hr tablet 00 TABLET(S) Medic al BY MOUTH Branch TWICE A DAY. prasugrel Yes TAKE ONE Univ ers 10 mg 4-27 (1) ity of tablet 00:00: TABLET(S) [place] 00 BY MOUTH Medical ONCE A Branch DAY. metoprolol Yes TAKE Univers succinate 4-27 ONE-HALF ity of XL 50 mg 24 00:00: (05/13) [place] hr tablet 00 TABLET(S) Medic al BY MOUTH Branch TWICE A DAY. prasugrel Yes TAKE ONE Univ ers 10 mg 4-27 (1) ity of tablet 00:00: TABLET(S) [place] 00 BY MOUTH Medical ONCE A Branch DAY. metoprolol Yes TAKE Univers succinate 4-27 ONE-HALF ity of XL 50 mg 24 00:00: (05/13) [place] hr tablet 00 TABLET(S) Medic al BY MOUTH Branch TWICE A DAY. prasugrel Yes TAKE ONE Univ ers 10 mg 4-27 (1) ity of tablet 00:00: TABLET(S) [place] 00 BY MOUTH Medical ONCE A Branch DAY. levothyroxi Yes 125ug Take [address] ne 2-21 mcg by [facility] (SYNTHROID, 10:12: mouth Medic al LEVOTHROID) 54 Every Center 125 MCG morning on tablet an empty stomach. prasugrel Yes 10mg QD Take [address] [facility] [address] (EFFIENT) 2-18 tablet (10 [facility] 10 mg Tab 00:00: mg total) Med ical tablet 00 by mouth Center daily. No known No No known Unive rs medications 2-26 medication it y of 10:39: s [address] Immunizations Ordered Filled Immunization Date Status Comments [facility] e Immunization Name Name TDAP 2014-07-07 Completed University of 00:00:00 [facility] TDAP 2014-07-07 Completed University of 00:00:00 [facility] TDAP 2014-07-07 Completed University of 00:00:00 [facility] TDAP 2014-07-07 Completed University of 00:00:00 [facility] TDAP 2014-07-07 Completed University of 00:00:00 [facility] TDAP 2014-07-07 Completed University of 00:00:00 [facility] TDAP 2014-07-07 Completed University of 00:00:00 [facility] Vital Signs Vital Name Observation Time Observation Value Comments Source Systolic blood 2022-07-10 22:20:00 126 mm[Hg] Univer sity of pressure [facility] Diastolic blood 2022-07-10 22:20:00 83 mm[Hg] Unive rsity of pressure [facility] Heart rate 2022-07-10 22:20:00 89 /min Universi ty of [facility] Body temperature 2022-07-10 22:20:00 36.83 Nesha Univ ersity of [facility] Respiratory rate 2022-07-10 22:20:00 16 /min Univ ersity of [facility] Body height 2022-07-10 22:20:00 160 cm Universi ty of [place] [facility] [place] Body weight 2022-07-10 22:20:00 90.266 kg Universi ty of [place] [facility] [place] BMI 2022-07-10 22:20:00 35.25 kg/m2 Universi ty of [facility] Oxygen saturation in 2022-07-10 22:20:00 99 /min University Arterial blood by [facility] Pulse oximetry Branch Systolic blood 2022-06-23 16:08:00 135 mm[Hg] Univer sity of pressure [facility] Diastolic blood 2022-06-23 16:08:00 80 mm[Hg] Unive rsity of pressure [facility] Heart rate 2022-06-23 16:08:00 99 /min Universi ty of [facility] Body temperature 2022-06-23 16:08:00 36.83 Nesha Univ ersity of [facility] Body height 2022-06-23 16:08:00 160 cm Universi ty of [place] [facility] [place] Body weight 2022-06-23 16:08:00 89.948 kg Universi ty of [place] [facility] [place] BMI 2022-06-23 16:08:00 35.13 kg/m2 Universi ty of [place] [facility] Oxygen saturation in 2022-06-23 16:08:00 99 /min University of Arterial blood by [place] [facility] Pulse oximetry Branch Systolic blood 2022-03-17 15:18:00 129 mm[Hg] Univer sity of pressure [place] [facility] Diastolic blood 2022-03-17 15:18:00 84 mm[Hg] Unive rsity of pressure [facility] Body temperature 2022-03-17 15:16:00 38.61 Nesha Univ ersity of [place] [facility] Respiratory rate 2022-03-17 15:16:00 20 /min Univ ersity of [facility] [place] [facility] Body height 2022-03-17 15:16:00 160 cm Universi ty of [place] [facility] Body weight 2022-03-17 15:16:00 90.719 kg Universi ty of [place] [facility] BMI 2022-03-17 15:16:00 35.43 kg/m2 Universi ty of [place] [facility] Oxygen saturation in 2022-03-17 15:16:00 98 /min University of Arterial blood by [place] [facility] gu[facility] Pulse oximetry Branch Heart rate 2022-03-17 15:16:00 123 /min Universi ty of [place] [facility] Systolic blood 2022-01-12 14:17:00 120 mm[Hg] Univer sity of pressure [facility] Diastolic blood 2022-01-12 14:17:00 83 mm[Hg] Unive rsity of pressure [facility] Heart rate 2022-01-12 14:17:00 84 /min Universi ty of [place] [facility] Body temperature 2022-01-12 14:17:00 37.17 Nesha Univ ersity of [place] [facility] Respiratory rate 2022-01-12 14:17:00 16 /min Univ ersity of [facility] [place] [facility] Body height 2022-01-12 14:17:00 160 cm Universi ty of [place] [facility] Body weight 2022-01-12 14:17:00 91.264 kg Universi ty of [place] [facility] BMI 2022-01-12 14:17:00 35.64 kg/m2 Universi ty of [facility] [place] [facility] Oxygen saturation in 2022-01-12 14:17:00 99 /min University of Arterial blood by [place] [employer] [facility] Pulse oximetry Branch Systolic blood 2021-05-18 15:17:00 131 mm[Hg] [facility] Diastolic blood 2021-05-18 15:17:00 84 mm[Hg] [facility] Heart rate 2021-05-18 15:17:00 81 /min [facility] Body temperature 2021-05-18 15:17:00 36.83 Nesha [facility] Respiratory rate 2021-05-18 15:17:00 18 /min [facility] Body height 2021-05-18 15:17:00 160 cm [facility] Body weight 2021-05-18 15:17:00 92.761 kg [facility] BMI 2021-05-18 15:17:00 36.23 kg/m2 [facility] Oxygen saturation in 2021-05-18 15:17:00 100 /min [facility] Arterial blood by [facility] Pulse oximetry [place] Procedures Procedure Date / Time Performed Performing Clinician Sour e POCT MOLECULAR STREP 2022-07-10 22:24:00 Unknown, Attending [facility] POCT SARS-COV-2 2022-06-23 16:38:00 Jayson Michaels [place] [facility] [place] ANTIGEN (BINAX NOW) Medical Bran ch POCT MOLECULAR STREP 2022-06-23 16:12:00 Unknown, Attending [facility] POCT MOLECULAR FLU 2022-03-17 15:23:00 Unknown, Attending [facility] POCT MOLECULAR STREP 2022-01-12 14:33:00 Jayson Michaels [facility] ASSIGNMENT OF BENEFITS 2022-01-12 14:09:50 Doctor Unassigned, No [facility] ASSIGNMENT OF BENEFITS 2021-05-18 15:08:32 Doctor Unassigned, No [facility] Encounters Start End Encounter Admission Attending Care Care Encounter Source Date/Time Date/Time Type Type Clinicians Facility Department ID 2022-07-10 2022-07-10 Urgent Rafaela Kong [facility] [id number] [facility] 16:20:00 16:40:00 Care Unknown, Attending [facility] [id number] [facility] [id number] Noe as ANKUR?BLEA [id number] [address] MEDICAL OFFICE [facility] 2022-07-10 2022-07-10 Outpatient R EDITH [facility] [id number] Univers 16:20:00 16:20:[address] [facility] 2022-06-23 2022-06-23 [facility] [id number] Univers 10:00:00 10:23:[address] [facility] 2022-06-23 2022-06-23 [facility] [id number] Univers 10:00:00 10:23:57 Care Unknown, Attending HEALTH [id number] ity of [place] 4.2.7.2.686 Noe as ANKUR?BLEA [id number] [address] OFFICE [facility] 2022-03-17 2022-03-17 [facility] [id number] Univers 09:00:00 09:37:[address] [facility] 2022-03-17 2022-03-17 [facility]gent [facility] [id number] Univers 09:00:00 09:20:00 Care Unknown, Attending HEALTH 350.1.13.10 ity of [place] 4.2.7.2.686 Noe as ANKUR?BLEA [id number] [address] 2022-03-17 2022-03-17 [facility] [id number] Univers 00:00:00 00:00:00 (Out) [facility] [id number] it y of [place] 4.2.7.2.686 Noe as ANKUR?BLEA [id number] [address] OFFICE [facility] 2022-01-13 2022-01-13 FELISA Wilson [id number] Univers 00:00:00 00:00:00 (Out) Gwendolyn ROMERO 350.1.13.10 it y of [facility] 4.2.7.2.686 Noe as [id number] [address] 2022-01-12 2022-01-12 Outpatient R DONTE, [facility] [id number] Univers 09:20:00 09:56:59 ЕКАТЕРИНА ity o f [facility] 2022-01-12 2022-01-12 Urgent Екатерина Kent [facility] 1.2.840. [id number] Univers 09:20:00 09:56:59 [facility] 350.1.13.10 ity of [place] 4.2.7.2.686 Noe as ANKUR?BLEA [phone] [address] MEDICAL OFFICE [facility] 2022-01-12 2022-01-12 Orders Doctor FELISA [id number] Univers 00:00:00 00:00:00 Only Unassigned, HEATHER 350.1.13.10 ity of [facility] 4.2.7.2.686 Noe as [phone] [facility] [address] [place] 2021-05-18 2021-05-18 Urgent Jolie Leal [facility] [id number] Univers 12:20:00 12:40:00 Care Екатерина [place] 350.1.13.10 ity of [place] 4.2.7.2.686 Noe as ANKUR?BLEA [phone] [address] MEDICAL OFFICE [facility] 2021-05-18 2021-05-18 Outpatient R DIDIER III, [facility] [id number] Univers 12:20:00 11:39:03 JOLIE willoughby of [facility] 2021-05-18 2021-05-18 Letter Doctor FELISA [id number] Univers 00:00:00 00:00:00 (Out) Unassigned, HEATHER 350.1.13.10 ity of [facility] 4.2.7.2.686 Noe as [phone] [facility] [address] [place] 2021-05-18 2021-05-18 Letter Doctor ROBERTO [id number] Univers 00:00:00 00:00:00 (Out) Unassigned, HEATHER 350.1.13.10 ity of [facility] 4.2.7.2.686 Noe as [phone] [facility] 044 Branch 2021-05-18 2021-05-18 Orders Doctor FELISA [id number] [id number] 00:00:00 00:00:00 Only Unassigned, HEATHER 350.1.13.10 ity of [facility] 4.2.7.2.686 Noe as [id number] [facility] 009 Branch Results Test Description Test Time Test Comments Results Result Comments Source POCT MOLECULAR STREP 2022-07-10 22:31:49 Test Item Value Reference Range Interpretation Comme nts POCT Molecular Strep (test code = 21804-5) Negative Negative Lab Interpretation (test code = 09718-8) Normal [facility] SARS-COV-2 ANTIGEN (BINAX NOW)2022-06-23 16:38:00 Test Item Value Reference Range Interpretation Comments POCT SARS-COV-2 ANTIGEN (test Not Detected Not Detected code = 01764-7) On board controls acceptable Yes with C Line (test code = 3574) [facility] MOLECULAR [id number] 16:16:37 Test Item Value Reference Range Interpretation Comments POCT Molecular Strep (test code = Positive Negative A 57582-5) Lab Interpretation (test code = Abnormal 20570-7) [facility] MOLECULAR [id number] 15:27:33 Test Item Value Reference Range Interpretation Comments POCT Molecular FluA (test code = Positive Negative A 10021-6) Lab Interpretation (test code = Abnormal 14406-5) [facility] MOLECULAR [id number] 14:40:14 Test Item Value Reference Range Interpretation Comments POCT Molecular Strep (test code = Negative Negative 38183-0) Lab Interpretation (test code = Normal 88545-2) [facility] AND [id number] 14:51:00 Test Item Value Reference Range Interpretation Comments CREATINE KINASE TOTAL (BEAKER) 38 U/L 29-200 (test code = 380) CREATINE KINASE-MB (BEAKER) (test 0.4 ng/mL 0.0-6.6 code = 750) CREATINE KINASE-MB INDEX (BEAKER) 1.1 % (test code = 395) Effective 03/29/2014: CK-MB Reference Range ChangeNew: 0.0-6.6 Previous: 0.0-4.9CK-MB Reference Range:<6.7 Normal6.7-10.0 Borderline>10.0 Abnormal TROPONIN [id number] 14:51:00 Test Item Value Reference Range Interpretation Comments TROPONIN I (BEAKER) (test code = 0.01 ng/mL 0.00-0.03 397) Effective 03/29/2014: Reference Range ChangeNew: 0.00-0.03 Previous 0.00- 0.15Troponin I (TnI) levelsmust be interpreted in the context of the presenting symptoms and the clinical findings. Elevated TnI levels indicate myocardial damage, but are not specific for ischemic heart disease. Elevated TnI levels are seen in patients with other cardiac conditions (including myocarditis and congestive heart failure), and slight TnI elevations occur in patients with other conditions, including sepsis, renal failure, acidosis, acute neurological disease, and persistent tachyarrhythmia.URINALYSIS W/ [id number] 11:14:00 Test Item Value Reference Range Interpretation Comments COLOR (BEAKER) (test code Yellow = 470) CLARITY (BEAKER) (test Hazy code = 469) SPECIFIC GRAVITY UA 1.023 1.001-1.035 (BEAKER) (test code = 468) PH UA (BEAKER) (test code 6.5 5.0-8.0 = 467) PROTEIN UA (BEAKER) (test 10 mg/dL Negative A code = 464) GLUCOSE UA (BEAKER) (test Negative Negative code = 365) KETONES UA (BEAKER) (test Negative Negative code = 371) BILIRUBIN UA (BEAKER) Negative Negative (test code = 462) BLOOD UA (BEAKER) (test Negative Negative code = 461) NITRITE UA (BEAKER) (test Negative Negative code = 465) LEUKOCYTE ESTERASE UA Negative Negative (BEAKER) (test code = 466) UROBILINOGEN UA (BEAKER) 12.0 mg/dL 0.2-1.0 H (test code = 463) RBC UA (BEAKER) (test code 2 /HPF = 519) WBC UA (BEAKER) (test code 2 /HPF = 520) MUCUS (BEAKER) (test code Occasional = 1574) SQUAMOUS EPITHELIAL 3 /HPF (BEAKER) (test code = 516) SOURCE(BEAKER) (test code Urine, Clean Catch = 2795) BASIC METABOLIC [id number] 11:05:00 Test Item Value Reference Range Interpretation Comments SODIUM (BEAKER) 136 meq/L 136-145 (test code = 381) POTASSIUM (BEAKER) 3.8 meq/L 3.5-5.1 (test code = 379) CHLORIDE (BEAKER) 101 meq/L 98-107 (test code = 382) CO2 (BEAKER) (test 24 meq/L 22-29 code = 355) BLOOD UREA NITROGEN 11 mg/dL 7-21 (BEAKER) (test code = 354) CREATININE (BEAKER) 0.63 mg/dL 0.57-1.25 (test code = 358) GLUCOSE RANDOM 96 mg/dL 70-105 (BEAKER) (test code = 652) CALCIUM (BEAKER) 9.2 mg/dL 8.4-10.2 (test code = 697) EGFR (BEAKER) (test mL/min/1.73 INSUFFIC IENT CLINICAL code = 1092) sq m DATA TO CALCULA TE ESTIMATED GFR. CBC W/PLT COUNT & AUTO [id number] 11:00:00 Test Item Value Reference Range Interpretation Comments WHITE BLOOD CELL COUNT (BEAKER) 10.7 K/ L 4.0-10.0 H (test code = 775) RED BLOOD CELL COUNT (BEAKER) 4.80 M/ L 4.00-5.00 (test code = 761) HEMOGLOBIN (BEAKER) (test code = 13.3 GM/DL 12.0-15.0 410) HEMATOCRIT (BEAKER) (test code = 42.6 % 36.0-45.0 411) MEAN CORPUSCULAR VOLUME (BEAKER) 88.9 fL 82.0-99.0 (test code = 753) MEAN CORPUSCULAR HEMOGLOBIN 27.7 pg 27.0-33.0 (BEAKER) (test code = 751) MEAN CORPUSCULAR HEMOGLOBIN CONC 31.1 GM/DL 32.0-36.0 L (BEAKER) (test code = 752) RED CELL DISTRIBUTION WIDTH 13.1 % 10.3-14.2 (BEAKER) (test code = 412) PLATELET COUNT (BEAKER) (test 233 K/CU MM 150-430 code = 756) MEAN PLATELET VOLUME (BEAKER) 7.8 fL 6.5-10.5 (test code = 754) NUCLEATED RED BLOOD CELLS 0 /100 WBC 0-0 (BEAKER) (test code = 413) NEUTROPHILS RELATIVE PERCENT 77 % (BEAKER) (test code = 429) LYMPHOCYTES RELATIVE PERCENT 14 % (BEAKER) (test code = 430) MONOCYTES RELATIVE PERCENT 8 % (BEAKER) (test code = 431) EOSINOPHILS RELATIVE PERCENT 1 % (BEAKER) (test code = 432) BASOPHILS RELATIVE PERCENT 0 % (BEAKER) (test code = 437) NEUTROPHILS ABSOLUTE COUNT 8.24 K/ L 1.80-8.00 H (BEAKER) (test code = 670) LYMPHOCYTES ABSOLUTE COUNT 1.47 K/ L 1.48-4.50 L (BEAKER) (test code = 414) MONOCYTES ABSOLUTE COUNT (BEAKER) 0.88 K/ L 0.00-1.30 (test code = 415) EOSINOPHILS ABSOLUTE COUNT 0.08 K/ L 0.00-0.50 (BEAKER) (test code = 416) BASOPHILS ABSOLUTE COUNT (BEAKER) 0.00 K/ L 0.00-0.20 (test code = 417) [id number] 10:58:00 Test Item Value Reference Range Interpretation Comments LIPASE (BEAKER) (test code = 749) 9 U/L 8-78 PLATELET AGGREGATION: FUNCTION [id number] 10:10:00 Test Item Value Reference Range Interpretation Comments WEAK ADP < % 60-91 L RESULT(BEAKER) (test code = 2135) PLATELET FUNCTION 0-39% indicates marked SCREEN INTERP platelet dysfunction (BEAKER) (test code = 2173) [id number] Lauryn Lopez MD (BEAKER) (test code = (electronic signature) 3803) PLATELET COUNT AGG 198 K/CU MM 150-430 (BEAKER) (test code = 7450) Platelet Function Screen results may be falsely low with platelet counts<100,000/cu mm.BASIC METABOLIC [id number] 08:10:00 Test Item Value Reference Range Interpretation Comments SODIUM (BEAKER) 136 meq/L 136-145 (test code = 381) POTASSIUM (BEAKER) 3.7 meq/L 3.5-5.1 (test code = 379) CHLORIDE (BEAKER) 104 meq/L 98-107 (test code = 382) CO2 (BEAKER) (test 24 meq/L 22-29 code = 355) BLOOD UREA NITROGEN 14 mg/dL 7-21 (BEAKER) (test code = 354) CREATININE (BEAKER) 0.57 mg/dL 0.57-1.25 (test code = 358) GLUCOSE RANDOM 95 mg/dL 70-105 (BEAKER) (test code = 652) CALCIUM (BEAKER) 8.2 mg/dL 8.4-10.2 L (test code = 697) EGFR (BEAKER) (test mL/min/1.73 INSUFFIC IENT CLINICAL code = 1092) sq m DATA TO CALCULA TE ESTIMATED GFR. [id number] 07:54:00 Test Item Value Reference Range Interpretation Comments MAGNESIUM (BEAKER) (test code = 2.0 mg/dL 1.6-2.6 627) HEMOGLOBIN AND [id number] 06:43:00 Test Item Value Reference Range Interpretation Comments HEMOGLOBIN (BEAKER) (test code = 11.8 GM/DL 12.0-15.0 L 410) HEMATOCRIT (BEAKER) (test code = 34.9 % 36.0-45.0 L 411) HEMOGLOBIN AND [id number] 13:04:00 Test Item Value Reference Range Interpretation Comments HEMOGLOBIN (BEAKER) (test code = 11.9 GM/DL 12.0-15.0 L 410) HEMATOCRIT (BEAKER) (test code = 34.8 % 36.0-45.0 L 411) PLATELET AGGREGATION: FUNCTION [id number] 11:13:00 Test Item Value Reference Range Interpretation Comments WEAK ADP < % 60-91 L This is a RESULT(BEAKER) corrected res ult. 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 FUNCTION 0-39% indicates SCREEN INTERP marked platelet (BEAKER) (test dysfunction code = 2173) [facility]-PATHOLOGIST- Dinah Calvo, 4930 (BEAKER) (electronic (test code = signature) 2150) PLATELET COUNT 188 K/CU MM 150-430 AGG (BEAKER) (test code = 2656) PLATELET AGGREGATION: DRUG [id number] 10:56:00 Test Item Value Reference Range Interpretation Comments STRONG ADP < % 70-94 L RESULT(BEAKER) (test code = 2137) WEAK ADP RESULT(BEAKER) < % 60-91 L (test code = 2135) ARACHADONIC ACID < % 63-89 L RESULT(BEAKER) (test code = 2138) PLATELET AGG DRUG Decreased response to INTERPRETATION (BEAKER) ADP suggest a (test code = 2408) [id number] drug effect. PLATELET AGG DRUG Decreased response to INTERPRETATION (BEAKER) arachidonic acid (test code = 865159) suggests aspirin-like effect. [id number] Dinah Calvo, (BEAKER) (test code = (electronic 6909) signature) PLATELET COUNT AGG 153 K/CU MM 150-430 (BEAKER) (test code = 2656) LIPID [id number] 04:11:00 Test Item Value Reference Range Interpretation Comments TRIGLYCERIDES (BEAKER) (test code = 95 mg/dL 540) CHOLESTEROL (BEAKER) (test code = 149 mg/dL 631) HDL CHOLESTEROL (BEAKER) (test code 36 mg/dL = 976) LDL CHOLESTEROL CALCULATED (BEAKER) 94 mg/dL (test code = 633) Triglyceride Reference Range: Low Risk <150 Borderline 150-199 High Risk 200-499 Very High Risk >=500Cholesterol Reference Range: Low Risk <200 Borderline 200-239 High Risk >240HDL Cholesterol Reference Range: Low Risk >=60 High Risk <40LDL Cholesterol Reference Range: Optimal <100 Near Optimal 100-129 Borderline 130-159 High 160-189 Very High >=190BASIC METABOLIC [id number] 04:11:00 Test Item Value Reference Range Interpretation Comments SODIUM (BEAKER) 137 meq/L 136-145 (test code = 381) POTASSIUM (BEAKER) 3.5 meq/L 3.5-5.1 (test code = 379) CHLORIDE (BEAKER) 105 meq/L 98-107 (test code = 382) CO2 (BEAKER) (test 24 meq/L 22-29 code = 355) BLOOD UREA NITROGEN 11 mg/dL 7-21 (BEAKER) (test code = 354) CREATININE (BEAKER) 0.53 mg/dL 0.57-1.25 L (test code = 358) GLUCOSE RANDOM 102 mg/dL 70-105 (BEAKER) (test code = 652) CALCIUM (BEAKER) 8.0 mg/dL 8.4-10.2 L (test code = 697) EGFR (BEAKER) (test mL/min/1.73 INSUFFIC IENT CLINICAL code = 1092) sq m DATA TO CALCULA TE ESTIMATED GFR. HEMOGLOBIN AND [id number] 03:55:00 Test Item Value Reference Range Interpretation Comments HEMOGLOBIN (BEAKER) (test code = 11.3 GM/DL 12.0-15.0 L 410) HEMATOCRIT (BEAKER) (test code = 33.3 % 36.0-45.0 L 411) HEMOGLOBIN AND [id number] 18:31:00 Test Item Value Reference Range Interpretation Comments HEMOGLOBIN (BEAKER) 11.4 GM/DL 12.0-15.0 L (test code = 410) HEMATOCRIT (BEAKER) 34.7 % 36.0-45.0 L This is a corrected (test code = 411) result. Pr evious result was 14.4 % on 06/27/2016 at 18 26 [employer] CBC W/PLT COUNT & AUTO [id number] 15:32:00 Test Item Value Reference Range Interpretation Comments WHITE BLOOD CELL COUNT (BEAKER) 10.6 K/ L 4.0-10.0 H (test code = 775) RED BLOOD CELL COUNT (BEAKER) 4.11 M/ L 4.00-5.00 (test code = 761) HEMOGLOBIN (BEAKER) (test code = 12.5 GM/DL 12.0-15.0 410) HEMATOCRIT (BEAKER) (test code = 36.5 % 36.0-45.0 411) MEAN CORPUSCULAR VOLUME (BEAKER) 88.8 fL 82.0-99.0 (test code = 753) MEAN CORPUSCULAR HEMOGLOBIN 30.3 pg 27.0-33.0 (BEAKER) (test code = 751) MEAN CORPUSCULAR HEMOGLOBIN CONC 34.2 GM/DL 32.0-36.0 (BEAKER) (test code = 752) RED CELL DISTRIBUTION WIDTH 12.8 % 10.3-14.2 (BEAKER) (test code = 412) PLATELET COUNT (BEAKER) (test 208 K/CU MM 150-430 code = 756) MEAN PLATELET VOLUME (BEAKER) 8.4 fL 6.5-10.5 (test code = 754) NUCLEATED RED BLOOD CELLS 0 /100 WBC 0-0 (BEAKER) (test code = 413) NEUTROPHILS RELATIVE PERCENT 70 % (BEAKER) (test code = 429) LYMPHOCYTES RELATIVE PERCENT 24 % (BEAKER) (test code = 430) MONOCYTES RELATIVE PERCENT 5 % (BEAKER) (test code = 431) EOSINOPHILS RELATIVE PERCENT 0 % (BEAKER) (test code = 432) BASOPHILS RELATIVE PERCENT 0 % (BEAKER) (test code = 437) NEUTROPHILS ABSOLUTE COUNT 7.45 K/ L 1.80-8.00 (BEAKER) (test code = 670) LYMPHOCYTES ABSOLUTE COUNT 2.59 K/ L 1.48-4.50 (BEAKER) (test code = 414) MONOCYTES ABSOLUTE COUNT (BEAKER) 0.53 K/ L 0.00-1.30 (test code = 415) EOSINOPHILS ABSOLUTE COUNT 0.04 K/ L 0.00-0.50 (BEAKER) (test code = 416) BASOPHILS ABSOLUTE COUNT (BEAKER) 0.02 K/ L 0.00-0.20 (test code = 417) 0.00PLATELET AGGREGATION: FUNCTION [id number] 12:55:00 Test Item Value Reference Range Interpretation Comments WEAK ADP < % 60-91 L This is a RESULT(BEAKER) corrected res ult. 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 FUNCTION 0-39% indicates SCREEN INTERP marked platelet (BEAKER) (test dysfunction code = 2173) [facility]-PATHOLOGIST- Dinah Calvo, 4938 (BEAKER) (electronic (test code = signature) 7210) PLATELET COUNT 228 K/CU MM 150-430 AGG (BEAKER) (test code = 0018) HEMOGLOBIN [id number] 12:00:00 Test Item Value Reference Range Interpretation Comments HEMOGLOBIN A1C (BEAKER) (test code = 5.2 % 4.3-6.1 368) HEMOGLOBIN AND [id number] 11:24:00 Test Item Value Reference Range Interpretation Comments HEMOGLOBIN (BEAKER) (test code = 11.9 GM/DL 12.0-15.0 L 410) HEMATOCRIT (BEAKER) (test code = 35.0 % 36.0-45.0 L 411) POTASSIUM-STAT [id number] 07:54:00 Test Item Value Reference Range Interpretation Comments POTASSIUM (BEAKER) (test code = 3.6 meq/L 3.6-5.5 379) HGB/HCT (H&H) - STAT [id number] 07:54:00 Test Item Value Reference Range Interpretation Comments HEMOGLOBIN (BEAKER) (test code = 12.3 g/dL 12.0-15.0 410) HEMATOCRIT (BEAKER) (test code = 36.0 % 36.0-45.0 411) CBC (HEMOGRAM ONLY)2016-06-27 04:09:00 Test Item Value Reference Range Interpretation Comments WHITE BLOOD CELL COUNT (BEAKER) 8.7 K/ L 4.0-10.0 (test code = 775) RED BLOOD CELL COUNT (BEAKER) 1.78 M/ L 4.00-5.00 L (test code = 761) HEMOGLOBIN (BEAKER) (test code = 5.4 GM/DL 12.0-15.0 LL 410) HEMATOCRIT (BEAKER) (test code = 16.1 % 36.0-45.0 L 411) MEAN CORPUSCULAR VOLUME (BEAKER) 90.7 fL 82.0-99.0 (test code = 753) MEAN CORPUSCULAR HEMOGLOBIN 30.6 pg 27.0-33.0 (BEAKER) (test code = 751) MEAN CORPUSCULAR HEMOGLOBIN CONC 33.7 GM/DL 32.0-36.0 (BEAKER) (test code = 752) RED CELL DISTRIBUTION WIDTH 12.9 % 10.3-14.2 (BEAKER) (test code = 412) PLATELET COUNT (BEAKER) (test 186 K/CU MM 150-430 code = 756) MEAN PLATELET VOLUME (BEAKER) 8.1 fL 6.5-10.5 (test code = 754) NUCLEATED RED BLOOD CELLS 0 /100 WBC 0-0 (BEAKER) (test code = 413) 0.00BASIC METABOLIC [id number] 03:49:00 Test Item Value Reference Range Interpretation Comments SODIUM (BEAKER) 138 meq/L 136-145 (test code = 381) POTASSIUM (BEAKER) 3.4 meq/L 3.5-5.1 L (test code = 379) CHLORIDE (BEAKER) 112 meq/L 98-107 H (test code = 382) CO2 (BEAKER) (test 18 meq/L 22-29 L code = 355) BLOOD UREA NITROGEN 13 mg/dL 7-21 (BEAKER) (test code = 354) CREATININE (BEAKER) 0.59 mg/dL 0.57-1.25 (test code = 358) GLUCOSE RANDOM 125 mg/dL 70-105 H (BEAKER) (test code = 652) CALCIUM (BEAKER) 7.1 mg/dL 8.4-10.2 L (test code = 697) EGFR (BEAKER) (test mL/min/1.73 INSUFFIC IENT CLINICAL code = 1092) sq m DATA TO CALCULA TE ESTIMATED GFR. TSH/FREE T4 IF [id number] 03:31:00 Test Item Value Reference Range Interpretation Comments THYROID STIMULATING HORMONE 1.53 uIU/mL 0.35-4.94 (BEAKER) (test code = 772) POTASSIUM-STAT [id number] 03:28:00 Test Item Value Reference Range Interpretation Comments POTASSIUM (BEAKER) (test code = 3.2 meq/L 3.6-5.5 L 379) [id number] 03:24:00 Test Item Value Reference Range Interpretation Comments PROTIME (BEAKER) (test code = 25.6 seconds 11.7-14.7 H 759) INR (BEAKER) (test code = 370) 2.3 <=5.9 PARTIAL THROMBOPLASTIN TIME 40.3 seconds 22.5-36.0 H (BEAKER) (test code = 760) RECOMMENDED COUMADIN/WARFARIN INR THERAPY RANGESSTANDARD DOSE: 2.0 - 3.0 Includes: PROPHYLAXIS for venous thrombosis, systemic embolization; TREATMENT for venous thrombosis and/or pulmonary embolus.HIGH RISK: Target INR is 2.5-3.5 for patients with mechanical heart valves. SCREEN, [id number] 03:13:00 Test Item Value Reference Range Interpretation Comments TEST URINE (BEAKER) (test Negative code = 583) HGB/HCT (H&H) - STAT [id number] 03:04:00 Test Item Value Reference Range Interpretation Comments HEMOGLOBIN (BEAKER) (test code = 8.0 g/dL 12.0-15.0 L 410) HEMATOCRIT (BEAKER) (test code = 24.0 % 36.0-45.0 L 411) [id number] 20:07:00 Test Item Value Reference Range Interpretation Comments ACTIVATED CLOTTING TIME 239 sec TEST ED AT [place] [address] ([facility]) (test code = [facility] 441) [id number] 20:01:00 Test Item Value Reference Range Interpretation Comments ACTIVATED CLOTTING TIME 307 sec TEST ED AT [place] [address] ([facility]) (test code = [place] [address]) [address] CREATINE KINASE (CK), TOTAL AND [id number] 19:15:00 Test Item Value Reference Range Interpretation Comments CREATINE KINASE TOTAL (AKER) 38 U/L 29-200 (test code = 380) CREATINE KINASE-MB (BEAKER) (test 0.9 ng/mL 0.0-6.6 code = 750) CREATINE KINASE-MB INDEX ([facility]) 2.4 % (test code = 395) Effective 03/29/2014: CK-MB Reference Range ChangeNew: 0.0-6.6 Previous: 0.0-4.9CK-MB Reference Range:<6.7 Normal6.7-10.0 Borderline>10.0 Abnormal TROPONIN [id number] 19:15:00 Test Item Value Reference Range Interpretation Comments TROPONIN I (BEAKER) (test code = 0.01 ng/mL 0.00-0.03 397) Effective 03/29/2014: Reference Range ChangeNew: 0.00-0.03 Previous 0.00- 0.15Troponin I (TnI) levelsmust be interpreted in the context of the presenting symptoms and the clinical findings. Elevated TnI levels indicate myocardial damage, but are not specific for ischemic heart disease. Elevated TnI levels are seen in patients with other cardiac conditions (including myocarditis and congestive heart failure), and slight TnI elevations occur in patients with other conditions, including sepsis, renal failure, acidosis, acute neurological disease, and persistent tachyarrhythmia.BASIC METABOLIC [id number] 19:14:00 Test Item Value Reference Range Interpretation Comments SODIUM (BEAKER) 137 meq/L 136-145 (test code = 381) POTASSIUM (BEAKER) 3.6 meq/L 3.5-5.1 (test code = 379) CHLORIDE (BEAKER) 106 meq/L 98-107 (test code = 382) CO2 (BEAKER) (test 21 meq/L 22-29 L code = 355) BLOOD UREA NITROGEN 10 mg/dL 7-21 (BEAKER) (test code = 354) CREATININE (BEAKER) 0.60 mg/dL 0.57-1.25 (test code = 358) GLUCOSE RANDOM 106 mg/dL 70-105 H (BEAKER) (test code = 652) CALCIUM (BEAKER) 8.7 mg/dL 8.4-10.2 (test code = 697) EGFR (BEAKER) (test mL/min/1.73 INSUFFIC IENT CLINICAL code = 1092) sq m DATA TO CALCULA TE ESTIMATED GFR. B-TYPE NATRIURETIC FACTOR (BNP)2016-06-26 19:12:00 Test Item Value Reference Range Interpretation Comments B-TYPE NATRIURETIC PEPTIDE (BEAKER) 20 pg/mL 0-100 (test code = 700) [id number] 19:07:00 Test Item Value Reference Range Interpretation Comments MAGNESIUM (BEAKER) (test code = 1.9 mg/dL 1.6-2.6 627) [id number] 18:53:00 Test Item Value Reference Range Interpretation Comments PARTIAL THROMBOPLASTIN TIME 32.0 seconds 22.5-36.0 (BEAKER) (test code = 760) PROTHROMBIN TIME/[id number] 18:52:00 Test Item Value Reference Range Interpretation Comments PROTIME (BEAKER) (test code = 14.3 seconds 11.7-14.7 759) INR (BEAKER) (test code = 370) 1.1 <=5.9 RECOMMENDED COUMADIN/WARFARIN INR THERAPY RANGESSTANDARD DOSE: 2.0 - 3.0 Includes: PROPHYLAXIS for venous thrombosis, systemic embolization; TREATMENT for venous thrombosis and/or pulmonary embolus.HIGH RISK: Target INR is 2.5-3.5 for patients with mechanical heart valves.CBC W/PLT COUNT & AUTO [id number] 18:46:00 Test Item Value Reference Range Interpretation Comments WHITE BLOOD CELL COUNT (BEAKER) 12.9 K/ L 4.0-10.0 H (test code = 775) RED BLOOD CELL COUNT (BEAKER) 3.56 M/ L 4.00-5.00 L (test code = 761) HEMOGLOBIN (BEAKER) (test code = 10.8 GM/DL 12.0-15.0 L 410) HEMATOCRIT (BEAKER) (test code = 31.2 % 36.0-45.0 L 411) MEAN CORPUSCULAR VOLUME (BEAKER) 87.8 fL 82.0-99.0 (test code = 753) MEAN CORPUSCULAR HEMOGLOBIN 30.5 pg 27.0-33.0 (BEAKER) (test code = 751) MEAN CORPUSCULAR HEMOGLOBIN CONC 34.7 GM/DL 32.0-36.0 (BEAKER) (test code = 752) RED CELL DISTRIBUTION WIDTH 12.9 % 10.3-14.2 (BEAKER) (test code = 412) PLATELET COUNT (BEAKER) (test 313 K/CU MM 150-430 code = 756) MEAN PLATELET VOLUME (BEAKER) 8.0 fL 6.5-10.5 (test code = 754) NUCLEATED RED BLOOD CELLS 0 /100 WBC 0-0 (BEAKER) (test code = 413) NEUTROPHILS RELATIVE PERCENT 88 % (BEAKER) (test code = 429) LYMPHOCYTES RELATIVE PERCENT 10 % (BEAKER) (test code = 430) MONOCYTES RELATIVE PERCENT 2 % (BEAKER) (test code = 431) EOSINOPHILS RELATIVE PERCENT 0 % (BEAKER) (test code = 432) BASOPHILS RELATIVE PERCENT 0 % (BEAKER) (test code = 437) NEUTROPHILS ABSOLUTE COUNT 11.40 K/ L 1.80-8.00 H (BEAKER) (test code = 670) LYMPHOCYTES ABSOLUTE COUNT 1.24 K/ L 1.48-4.50 L (BEAKER) (test code = 414) MONOCYTES ABSOLUTE COUNT (BEAKER) 0.21 K/ L 0.00-1.30 (test code = 415) EOSINOPHILS ABSOLUTE COUNT 0.03 K/ L 0.00-0.50 (BEAKER) (test code = 416) BASOPHILS ABSOLUTE COUNT (BEAKER) 0.00 K/ L 0.00-0.20 (test code = 417) 0.00
[2022-10-11 16:45] LABS: Absolute Lymphocytes (CBC) 1.6 K/uL (0.7-4.9); Hematocrit 38.2 % (36.0-45.0); Lymphocytes % 17.4 % (15.3-44.8); MCV 84.3 fL (80-100); MPV 8.4 fL (7.6-11.3); RBC Red Blood Cell Count 4.54 M/uL (3.86-4.86)
[2022-10-11] MEDS ORDERED: KETOROLAC 30 MG/ML INJ ONE ×2 (16:50→17:00)
[2022-10-11] MEDS ORDERED: NA CHLORIDE 0.9% 0 ML ONE (16:51)
[2022-10-11] MEDS ORDERED: FAMOTIDINE 20 MG/2 ML VIAL IV ONE ×2 (16:51→17:00)
[2022-10-11] MEDS ORDERED: ONDANSETRON 4 MG/2 ML VIAL ONE ×2 (16:51→17:00)
[2022-10-11] MEDS ORDERED: NA CHLORIDE 0.9% 1,000 ML ONE (17:00)
[2022-10-11 17:04] LABS: Albumin 3.5 g/dL (3.4-5.0); Bilirubin Total 1.4 mg/dL (0.2-1.0); Potassium 3.3 mEq/L (3.5-5.1); Protein, Total 7.7 g/dL (6.4-8.2); Troponin High Sensitivity 28.6 pg/mL (<58.9)
[2022-10-11 17:09] LABS: Specific Gravity 1.023 (1.005-1.030)
[2022-10-11 17:23] LABS: Specific Gravity 1.023 (1.005-1.030); Urine Bacteria <20 /HPF (<20); Urine Bilirubin NEGATIVE (Negative); Urine Blood Negative (Negative); Urine Clarity Clear (Clear); Urine Color Yellow (Yellow); Urine Crystals Unidentified Few /HPF (None Seen); Urine Glucose NEGATIVE (Negative); Urine Mucus Slight /HPF (None Seen); Urine Protein 1+ (Negative); Urine RBC <5 /HPF (None Seen); Urine Urobilinogen 2+ (Normal); Urine WBC Clump Rare /HPF (None Seen); Urine pH 6.5 (5.0-7.0)
--- NOTE | 2022-10-11 17:33 | RAD REPORT ---
EXAM DESCRIPTION: US - Abdomen Exam Limited - 10/11/2022 5:27 pm CLINICAL HISTORY: ABD PAIN COMPARISON: Abdomen Pelvis W Contrast dated 06/16/2018 TECHNIQUE: Sonographic grayscale and color flow images of the right upper abdominal quadrant were obtained. FINDINGS: The gallbladder demonstrates no gallstones. No pericholecystic fluid or gallbladder wall t hickening. The common bile duct is normal measuring 3 mm. The liver demonstrates no findings of intrahepatic biliary dilatation. IMPRESSION: Unremarkable right upper abdominal quadrant ultrasound.
--- NOTE | 2022-10-11 18:22 | RAD REPORT ---
EXAM DESCRIPTION: CT - Abdomen Pelvis W Contrast - 10/11/2022 6:09 pm CLINICAL HISTORY: ABD PAIN COMPARISON: Abdomen Pelvis W Contrast dated 06/16/2018 TECHNIQUE: Thin cut axial CT imaging of the abdomen and pelvis was performed following intravenous a dministration of 70 mL Isovue 300. Multiplanar reformats were generated and reviewed. All CT scans are performed using dose optimization technique as appropriate and may include automated exposure control or mA/KV adjustment according to patient size. FINDINGS: No suspicious findings in the lung bases. The liver, spleen, and pancreas show no suspicious findings. Gallbladder is suboptimally distended li miting evaluation. Biliary tree is unremarkable. Symmetric renal function is seen with no hydronephrosis or suspicious renal mass. No dilated bowel loops or bowel wall thickening. No free air, free fluid or inflammatory stranding. N o hernia, mass or bulky lymphadenopathy. The urinary bladder is without significant finding. IUD in p lace. No suspicious bony findings. IMPRESSION: No acute intra-abdominal process.
--- NOTE | 2022-10-11 18:39 | ER ---
Nurse's Notes [facility] Name: Lilliam Bryant Age: 47 yrs Sex: Female : 1975 Arrival Date: 10/11/2022 Time: 16:01 Bed 5 Private MD: Roberto Grace Diagnosis: Upper abdominal pain, unspecified Presentation: 10/11 16:08 Chief complaint: Patient states: epigastric pain that began Friday, worse after ss eating. PT reports that the pain radiates from her epigastric area around both sides like a band around to her back. Coronavirus screen: Client denies travel out of the [place] in the last 14 days. Ebola Screen: Patient denies exposure to infectious person. Patient denies travel to an Ebola-affected area in the 21 days before illness onset. Initial Sepsis Screen: Does the patient meet any 2 criteria? No. Patient's initial sepsis screen is negative. Does the patient have a suspected source of infection? No. Patient's initial sepsis screen is negative. Risk Assessment: Do you want to hurt yourself or someone else? Patient reports no desire to harm self or others. Onset of symptoms was October 09, 2022. 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 - Social history:: Smoking status: Patient denies any tobacco usage or history of. Screenin:50 [facility] ED Fall Risk Assessment (Adult) History of falling in the last 3 months, mb9 including since admission No falls in past 3 months (0 pts) Confusion or Disorientation No (0 pts) Intoxicated or Sedated No (0 pts) Impaired Gait No (0 pts) Mobility Assist Device Used No (0 pt) Altered Elimination No (0 pt) Score/Fall Risk Level 0 - 2 = Low Risk Oriented to surroundings, Maintained a safe environment, Educated pt \T\ family on fall prevention, incl call for assistance when getting out of bed. Abuse screen: Denies threats or abuse. Nutritional screening: No deficits noted. Tuberculosis screening: No symptoms or risk factors identified. Assessment: 16:56 General: Appears in no apparent distress. comfortable, Behavior is calm, cooperative, ld1 appropriate for age. Pain: Complains of pain in left upper quadrant and right upper quadrant and epigastric area Pain does not radiate. Pain currently is 8 out of 10 on a pain scale. Quality of pain is described as throbbing, Pain began 1 hour ago. Neuro: Level of Consciousness is awake, alert, obeys commands, Oriented to person, place, time, situation. Cardiovascular: Capillary refill < 3 seconds Patient's skin is warm and dry. Respiratory: Airway is patent Respiratory effort is even, unlabored. GI: Abdomen is round non-distended, Bowel sounds present X 4 quads. Abd is soft Abdomen is tender to palpation Reports lower abdominal pain, upper abdominal pain. : No signs and/or symptoms were reported regarding the genitourinary system. EENT: No signs and/or symptoms were reported regarding the EENT system. Derm: No signs and/or symptoms reported regarding the dermatologic system. Musculoskeletal: No signs and/or symptoms reported regarding the musculoskeletal system. 18:00 Reassessment: No changes from previously documented assessment. Patient and/or family mb9 updated on plan of care and expected duration. Pain level reassessed. Patient is alert, oriented x 3, equal unlabored respirations, skin warm/dry/pink. 18:49 Reassessment: Patient states feeling better. Patient states symptoms have improved. mb9 Vital Signs: 16:08 BP 156 / 79; Pulse 94; Resp 15; Pulse Ox 100% on R/A; Weight 89.81 kg; Height 5 ft. 3 ss in. ; Pain 7/10; 16:56 BP 121 / 63; Pulse 71; Resp 18; Pulse Ox 100% on R/A; ld1 18:50 BP 139 / 78; Pulse 84; Resp 16; Pulse Ox 98% on R/A; mb9 16:08 Body Mass Index 35.07 (89.81 kg, 160.02 cm) ss 16:08 Pain Scale: Adult ss ED Course: 16:04 Patient arrived in ED. im 16:04 Roberto Grace MD is Private Physician. im 16:09 Triage completed. ss 16:09 Arm band placed on left wrist. ss 16:11 [facility]abrina Flores [facility]C [facility]. kb 16:11 Kevin Dawkins MD is Attending Physician. kb 16:21 Mary Anne Hayden RN is Primary Nurse. mb9 16:37 Troponin HS Sent. mb9 16:37 Lipase Sent. mb9 16:37 CMP Sent. mb9 16:37 CBC with Diff Sent. mb9 16:49 Urine collected: clean catch specimen, clear. tm3 16:49 EKG done, by ED staff. tm3 16:56 Patient has correct armband on for positive identification. Placed in gown. Bed in low ld1 position. Call light in reach. Side rails up X2. program eligibility specialist on. Pulse ox on. NIBP on. Door closed. Noise minimized. Warm blanket given. 16:56 No provider procedures requiring assistance completed. ld1 17:28 Abdomen Limited US In Process Unspecified. EDMS 18:11 CT Abd/Pelvis - IV Contrast Only In Process Unspecified. EDMS 18:51 IV discontinued, intact, bleeding controlled, No redness/swelling at site. Pressure mb9 dressing applied. Administered Medications: 16:55 Drug: NS 0.9% IV 1000 ml Route: IV; Rate: 1 bolus; Site: left antecubital; ld1 16:55 Drug: Famotidine IVP 20 mg Route: IVP; Site: left antecubital; ld1 16:55 Drug: TORadol - Ketorolac IVP 15 mg Route: IVP; Site: left antecubital; ld1 16:55 Drug: Ondansetron IVP 4 mg Route: IVP; Site: left antecubital; ld1 Medication: 18:50 VIS not applicable for this client. mb9 Outcome: 18:37 Discharge ordered by MD. kb 18:51 Discharged to home ambulatory. mb9 18:51 Condition: stable 18:51 Discharge instructions given to patient, Instructed on discharge instructions, follow up and referral plans. Demonstrated understanding of instructions, follow-up care, medications, Prescriptions given X 3. 18:53 Patient left the ED. ld1 Signatures: Dispatcher [employer] EDMS Zabrina Flores FNP-C DRY ROLLER-CkDario Day tm3 Eleanor Hickey RN RN Maryan Kang RN RN ld1 Mary Anne Hayden RN RN mb9 Silva Mishra Corrections: (The following items were deleted from the chart) 16:10 16:09 PMHx: cardiac; ss ss
--- NOTE | 2022-10-11 18:39 | EDPHYS ---
Physician Documentation [facility] Name: Lilliam Bryant Age: 47 yrs Sex: Female : 1975 Arrival Date: 10/11/2022 Time: 16:01 Bed 5 Private MD: Roberto Grace ED Physician Kevin Dawkins HPI: 10/11 16:27 This 47 yrs old Female presents to ER via Ambulatory with complaints of kb Abdominal Pain. 16:27 The patient presents with abdominal pain in the epigastric area. The patient has not kb recently seen a physician. 18:34 Onset: The symptoms/episode began/occurred 3 day(s) ago. The symptoms radiate to back. kb Associated signs and symptoms: Pertinent positives: nausea. The symptoms are described as intermittent. Modifying factors: The symptoms are alleviated by nothing, the symptoms are aggravated by food. Severity of pain: At its worst the pain was moderate in the emergency department the pain is unchanged. The patient has not experienced similar symptoms in the past. 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 - Social history:: Smoking status: Patient denies any tobacco usage or history of. ROS: 16:26 Constitutional: Negative for fever, chills, and weight loss. kb 16:26 Abdomen/GI: Positive for abdominal pain, nausea, Negative for vomiting, diarrhea. 16:26 All other systems are negative. Exam: 16:26 Constitutional: This is a well developed, well nourished patient who is awake, alert, kb and in no acute distress. Head/Face: Normocephalic, atraumatic. ENT: Moist Mucous membranes Cardiovascular: Regular rate and rhythm with a normal S1 and S2. No gallops, murmurs, or rubs. No pulse deficits. Respiratory: Respirations even and unlabored. No increased work of breathing. Talking in full sentences Skin: Warm, dry with normal turgor. Normal color. MS/ Extremity: Pulses equal, no cyanosis. Neurovascular intact. Full, normal range of motion. Neuro: Awake and alert, GCS 15, oriented to person, place, time, and situation. Moves all extremities. Normal gait. 16:26 Abdomen/GI: Inspection: abdomen appears normal, Bowel sounds: normal, Palpation: soft, in all quadrants, mild abdominal tenderness, in the epigastric area, right upper quadrant and left upper quadrant. 16:53 ECG was reviewed by the Attending Physician. kb Vital Signs: 16:08 BP 156 / 79; Pulse 94; Resp 15; Pulse Ox 100% on R/A; Weight 89.81 kg; Height 5 ft. 3 ss in. ; Pain 7/10; 16:56 BP 121 / 63; Pulse 71; Resp 18; Pulse Ox 100% on R/A; ld1 18:50 BP 139 / 78; Pulse 84; Resp 16; Pulse Ox 98% on R/A; mb9 16:08 Body Mass Index 35.07 (89.81 kg, 160.02 cm) ss 16:08 Pain Scale: Adult ss MDM: 16:11 Patient medically screened. kb 16:27 Differential diagnosis: cholecystitis, Cholelithiasis, gastritis, myocardia ischemia or kb infarction, non-specific abd pain, pancreatitis. Data reviewed: vital signs, nurses notes. 18:32 Counseling: I had a detailed discussion with the patient and/or guardian regarding: the kb historical points, exam findings, and any diagnostic results supporting the discharge/admit diagnosis, lab results, radiology results, the need for outpatient follow up, a family practitioner, to return to the emergency department if symptoms worsen or persist or if there are any questions or concerns that arise at home. 10/11 16:16 Order name: CBC with Diff; Complete Time: 16:51 kb 10/11 16:16 Order name: CMP; Complete Time: 17:05 kb 10/11 16:16 Order name: Lipase; Complete Time: 17:05 kb 10/11 16:16 Order name: Test, Urine; Complete Time: 17:30 kb 10/11 16:16 Order name: Urinalysis w/ reflexes; Complete Time: 17:30 kb 10/11 16:16 Order name: Troponin HS; Complete Time: 17:05 kb 10/11 16:16 Order name: Abdomen Limited US; Complete Time: 17:42 kb 10/11 17:42 Order name: CT Abd/Pelvis - IV Contrast Only; Complete Time: 18:25 kb 10/11 16:16 Order name: EKG; Complete Time: 16:16 kb 10/11 16:16 Order name: IV Saline Lock; Complete Time: 16:37 kb 10/11 16:16 Order name: Labs collected and sent; Complete Time: 16:37 kb 10/11 16:16 Order name: EKG - Nurse/Tech; Complete Time: 16:50 kb EC:53 Rate is 70 beats/min. Rhythm is regular. QRS [place] is Normal. UT interval is normal at kb 140 msec. QRS interval is normal at 90 msec. QT interval is normal at 440 msec. Administered Medications: 16:55 Drug: NS 0.9% IV 1000 ml Route: IV; Rate: 1 bolus; Site: left antecubital; ld1 16:55 Drug: Famotidine IVP 20 mg Route: IVP; Site: left antecubital; ld1 16:55 Drug: TORadol - Ketorolac IVP 15 mg Route: IVP; Site: left antecubital; ld1 16:55 Drug: Ondansetron IVP 4 mg Route: IVP; Site: left antecubital; ld1 Disposition Summary: 10/11/22 18:37 Discharge Ordered Location: Home kb Condition: Stable kb Diagnosis - Upper abdominal pain, unspecified kb Followup: kb - With: Emergency Department - When: As needed - Reason: Worsening of condition Followup: kb - With: Private Physician - When: 2 - 3 days - Reason: Recheck today's complaints, Continuance of care, Re-evaluation by your physician Discharge Instructions: - Discharge Summary Sheet kb - Abdominal Pain, Adult, [id number] kb Forms: - Medication Reconciliation Form kb - Thank You Letter kb - Antibiotic Education kb - Prescription Opioid Use kb Prescriptions: - Protonix 40 mg Oral Tablet - take 1 tablet by ORAL route once daily; 30 tablet; Refills: 0, Product kb Selection Permitted - Zofran 4 mg Oral Tablet - take 1 tablet by ORAL route every 6 hours As needed; 12 tablet; Refills: 0, kb Product Selection Permitted - dicyclomine 20 mg Oral Tablet - take 1 tablet by ORAL route 4 times per day As needed; 20 tablet; Refills: 0, kb Product Selection Permitted Signatures: Dispatcher [employer] Zabrina Baird, ANNETTE-C VASCULAR TECHNICIAN-Eleanor Chun, RN RN ss Maryan Kang RN RN ld1 Corrections: (The following items were deleted from the chart) 16:10 16:09 PMHx: cardiac; [facility]
[2022-10-11 19:19] VITALS: BP 139/78; O2SAT 98
--- NOTE | 2022-10-14 10:19 | EKG ---
Test Date: 2022-10-11 Test Time: 16:47:32 Theatre Professor: TM MEASUREMENT RESULTS: Intervals: Rate: 70 DE: 140 QRSD: 90 QT: 408 QTc: 440 [place]: P: 45 DE: 140 QRS: 23 T: 26 INTERPRETIVE STATEMENTS: Normal sinus rhythm Normal ECG No previous ECG available for comparison Electronically Signed On 10-14-22 10:14:16 CDT by [place]
== END 2022-10-11 18:53 | disposition home or self-care (01) ==
LOC: ER 16:01
DX: R10.13 Epigastric pain (principal); R11.0 Nausea; I10 Essential (primary) hypertension; Z95.818 Presence of other cardiac implants and grafts
CPT/HCPCS: 93005; 85025; 81001; 36415; 81025; 84484; 83690; 80053; 74177; 76705; 96375; 96374; 99285; Q9967; J2405; J7030

== ENCOUNTER 2024-02-09 21:14 | Emergency (ER) | payer OTHER ==
[2024-02-09 22:56] LABS: Absolute Eosinophils 0.3 K/uL (0-0.5); Absolute Lymphocytes (CBC) 1.6 K/uL (0.7-4.9); Absolute Monocytes 0.5 K/uL (0.1-1.3); Absolute Neutrophil 6.7 K/uL (1.8-8.0); Basophils % 0.2 % (0-1.3); Eosinophils % 3.3 % (0-4.4); Hematocrit 37.3 % (36.0-45.0); Hemoglobin 12.6 g/dL (12.0-15.0); Lymphocytes % 17.7 % (15.3-44.8); MCH 29.7 pg (27.0-35.0); MCHC 33.6 g/dL (32.0-36.0); MCV 88.4 fL (80-100); MPV 8.4 fL (7.6-11.3); Monocytes % 5.4 % (3.3-12.3); Neutrophils % 73.4 % (41.7-73.7); Platelets 268 thou/uL (152-406); RBC Red Blood Cell Count 4.22 M/uL (3.86-4.86); Red Cell Distribution Width 14.4 % (12.1-15.2)
[2024-02-09] MEDS ORDERED: ONDANSETRON 4 MG/2 ML VIAL ONE (22:59)
[2024-02-09] MEDS ORDERED: NA CHLORIDE 0.9% 1,000 ML ONE (23:00)
[2024-02-09] MEDS ORDERED: MORPHINE 4 MG/ML SYR ONE (23:00)
[2024-02-09 23:04] LABS: Specific Gravity 1.028 (1.005-1.030)
[2024-02-09 23:07] LABS: Albumin 3.4 g/dL (3.4-5.0); Albumin/Globulin Ratio 0.8 (1.1-1.8); Anion Gap 5.3 mEq/L (5.0-15.0); Bilirubin Total 0.7 mg/dL (0.2-1.0); Globulin 4.1 g/dL (2.3-3.5); Potassium 3.3 mEq/L (3.5-5.1); Protein, Total 7.5 g/dL (6.4-8.2)
[2024-02-09 23:09] LABS: Specific Gravity 1.028 (1.005-1.030); Urine Bacteria None Seen /HPF (<20); Urine Bilirubin NEGATIVE (Negative); Urine Blood 3+ (OVER) (Negative); Urine Clarity Extremely Turbid (Clear); Urine Color Yellow (Yellow); Urine Culture Reflex Order NOT NEEDED; Urine Glucose NEGATIVE (Negative); Urine Ketones NEGATIVE (Negative); Urine Microscopic Reflex YN ORDER UMIC; Urine Mucus 1+ /HPF (None Seen); Urine Nitrite NEGATIVE (Negative); Urine Protein TRACE (Negative); Urine RBC >50 /HPF (None Seen); Urine Urobilinogen Normal (Normal); Urine WBC <5 /HPF (<5); Urine pH 6.5 (5.0-7.0)
[2024-02-09] MEDS ORDERED: PROMETHAZINE INJ 25 MG/ML AMP ONE (23:40)
[2024-02-09] MEDS ORDERED: KETOROLAC 30 MG/ML INJ ONE (23:40)
[2024-02-10] MEDS ORDERED: POTASSIUM 25 MEQ EFFERV TAB ONE (01:11)
--- NOTE | 2024-02-10 01:35 | ER ---
Nurse's Notes [facility] Name: Lilliam Brar Age: 48 yrs Sex: Female : 1975 Arrival Date: 02/09/2024 Time: 21:14 Bed 6 Private MD: Diagnosis: Other viral enteritis Presentation: 02/08 22:29 Chief complaint: Patient states: WOKE UP THIS MORNING WITH STOMACH PAIN AND VOMITING vc1 AND DIARRHEA. Coronavirus screen: Client denies travel out of the [place] in the last 14 days. At this time, the client does not indicate any symptoms associated with coronavirus-19. Ebola Screen: Patient negative for fever greater than or equal to 101.5 degrees Fahrenheit, and additional compatible Ebola Virus Disease symptoms Patient denies exposure to infectious person. Patient denies travel to an Ebola-affected area in the 21 days before illness onset. No symptoms or risks identified at this time. Initial Sepsis Screen: Does the patient meet any 2 criteria? No. Patient's initial sepsis screen is negative. Does the patient have a suspected source of infection? No. Patient's initial sepsis screen is negative. Risk Assessment: Do you want to hurt yourself or someone else? Patient reports no desire to harm self or others. Onset of symptoms was February 09, 2024 at 08:00. 22:29 Method Of Arrival: Ambulatory vc1 22:29 Acuity: JUNI 3 vc1 Triage Assessment: 22:32 General: Appears in no apparent distress. ill, obese, well groomed, well developed, vc1 well nourished, Behavior is calm, cooperative, appropriate for age. Pain: Complains of pain in right upper quadrant and left upper quadrant Pain does not radiate. Pain currently is 10 out of 10 on a pain scale. Quality of pain is described as sharp, Pain began THIS MORNING Also complains of nausea, VOMITING. EENT: No deficits noted. No signs and/or symptoms were reported regarding the EENT system. Neuro: Level of Consciousness is awake, alert, obeys commands, Oriented to person, place, time, situation, Appropriate for age. Cardiovascular: Heart tones S1 S2 Capillary refill < 3 seconds Patient's skin is warm and dry. Respiratory: Airway is patent Respiratory effort is even, unlabored, Respiratory pattern is regular, symmetrical. GI: Reports upper abdominal pain, diarrhea, nausea, vomiting, since THIS MORNING. : No deficits noted. No signs and/or symptoms were reported regarding the genitourinary system. Derm: Skin is intact, is healthy with good turgor, Skin is dry, Skin is normal, Skin temperature is warm. Musculoskeletal: No deficits noted. No signs and/or symptoms reported regarding the musculoskeletal system. 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 - Infectious Disease History:: Denies. - Social history:: Smoking status: Patient denies any tobacco usage or history of. Screenin:32 Abuse screen: Denies threats or abuse. Nutritional screening: No deficits noted. vc1 Tuberculosis screening: No symptoms or risk factors identified. 22:34 [facility] ED Fall Risk Assessment (Adult) History of falling in the last 3 months, vc1 including since admission No falls in past 3 months (0 pts) Confusion or Disorientation No (0 pts) Intoxicated or Sedated No (0 pts) Impaired Gait No (0 pts) Mobility Assist Device Used No (0 pt) Altered Elimination Yes (1 pt) Score/Fall Risk Level 0 - 2 = Low Risk Oriented to surroundings, Maintained a safe environment, Educated pt \T\ family on fall prevention, incl call for assistance when getting out of bed. Assessment: 23:05 General: Appears in no apparent distress. uncomfortable, Behavior is calm, cooperative. lg3 Pain: Complains of pain in left upper quadrant and right upper quadrant Pain does not radiate. Pain currently is 8 out of 10 on a pain scale. Also complains of nausea. Neuro: No deficits noted. Corey Agitation-Sedation Scale (RASS): 0 - Alert and Calm Level of Consciousness is awake, alert, obeys commands, Oriented to person, place, time, situation. Cardiovascular: No deficits noted. Denies chest pain, shortness of breath, Capillary refill < 3 seconds Clubbing of nail beds is absent JVD is absent Patient's skin is warm and dry. Respiratory: No deficits noted. Airway is patent Respiratory effort is even, unlabored, Respiratory pattern is regular, symmetrical. GI: Abdomen is round non-distended, obese, Bowel sounds present X 4 quads. Reports upper abdominal pain, cramping, nausea, vomiting. : No deficits noted. No signs and/or symptoms were reported regarding the genitourinary system. EENT: No deficits noted. No signs and/or symptoms were reported regarding the EENT system. Derm: No deficits noted. No signs and/or symptoms reported regarding the dermatologic system. Skin is intact, is healthy with good turgor, Skin is dry, Skin is normal, Skin temperature is warm. Musculoskeletal: No deficits noted. No signs and/or symptoms reported regarding the musculoskeletal system. Circulation, motion, and sensation intact. Range of motion: intact in all extremities. 02/09 00:29 Reassessment: Patient appears in no apparent distress at this time. No changes from lg3 previously documented assessment. Patient and/or family updated on plan of care and expected duration. Pain level reassessed. Patient is alert, oriented x 3, equal unlabored respirations, skin warm/dry/pink. 02:00 Reassessment: Patient appears in no apparent distress at this time. Patient and/or bm8 family updated on plan of care and expected duration. Pain level reassessed. Patient is alert, oriented x 3, equal unlabored respirations, skin warm/dry/pink. Patient denies pain at this time. Patient states feeling better. Patient states symptoms have improved. Vital Signs: 02/08 22:29 BP 132 / 96; Pulse 95; Resp 18; Pulse Ox 100% ; Weight 85.28 kg; Height 5 ft. 3 in. ; vc1 Pain 10/10; 02/09 00:29 BP 109 / 64; Pulse 66; Resp 16 S; Pulse Ox 98% on R/A; lg3 02:00 BP 107 / 68; Pulse 74; Resp 17; Temp 98; Pulse Ox 97% ; Pain 0/10; bm8 02/08 22:29 Body Mass Index 33.30 (85.28 kg, 160.02 cm) vc1 02/08 22:29 Pain Scale: Adult vc1 02:00 Pain Scale: Adult bm8 Mack Coma Score: 02:00 Eye Response: spontaneous(4). Motor Response: obeys commands(6). Verbal Response: bm8 oriented(5). Total: 15. ED Course: 02/08 21:15 Patient arrived in ED. im 21:18 Debby Patterson PA-C is PHCP. sb4 21:18 Ryan Borja MD is Attending Physician. sb4 22:31 Triage completed. vc1 22:32 Arm band placed on right wrist. vc1 22:46 Inserted saline lock: 22 gauge in right antecubital area, using aseptic technique. oe Blood collected. Flushed with 10 mL NS. 22:53 CBC with Diff Sent. oe 22:53 CMP Sent. oe 22:53 Lipase Sent. oe 22:57 Test, Urine Sent. oe 22:57 Urinalysis w/ reflexes Sent. oe 22:57 Urine collected: clean catch specimen, calin colored. oe 23:05 Patient has correct armband on for positive identification. Placed in gown. Bed in low lg3 position. Call light in reach. Side rails up X 1. Client placed on continuous cardiac and pulse oximetry monitoring. NIBP monitoring applied. court monitor on. Door closed. Noise minimized. Warm blanket given. Pillow given. Family accompanied patient. 23:05 Patient maintains SpO2 saturation greater than 95% on room air. lg3 02/09 00:02 CT Abd/Pelvis - IV Contrast Only In Process Unspecified. EDMS 02:00 Provided Education on: post er care. bm8 02:00 No provider procedures requiring assistance completed. IV discontinued, intact, bm8 bleeding controlled, No redness/swelling at site. Pressure dressing applied. Administered Medications: 02/08 23:07 Drug: NS 0.9% IV 1000 ml IV at 1 bolus Per protocol; 1000 mL bolus Route: IV; Rate: 1 bm8 bolus; Site: right antecubital; 02/09 01:14 Follow up: Response: No adverse reaction; IV Status: Completed infusion; IV Intake: bm8 1000ml 02/08 23:07 Drug: morphine IVP or IV 4 mg IVP once over 4 mins Route: IVP; Infused Over: 4 mins; bm8 Site: right antecubital; 02/09 01:14 Follow up: Response: No adverse reaction bm8 02/08 23:07 Drug: Ondansetron IVP 4 mg IVP once; over 2 minutes Route: IVP; Site: right antecubital;bm8 02/09 01:14 Follow up: Response: No adverse reaction bm8 02/08 23:45 Drug: Ketorolac IVP 30 mg IVP once Route: IVP; Site: right antecubital; lg3 02/09 01:14 Follow up: Response: No adverse reaction bm8 02/08 23:45 Drug: Promethazine IVP 12.5 mg IVP once Route: IVP; Site: right antecubital; lg3 02/09 01:15 Follow up: Response: No adverse reaction bm8 01:14 Drug: Potassium PO Effervescent Tablet 25 mEq PO once; dissolve in 4 ounces of water or bm8 juice Route: PO; 02:04 Follow up: Response: No adverse reaction bm8 Medication: 02/08 22:34 VIS not applicable for this client. vc1 Intake: 02/09 01:14 IV: 1000ml; Total: 1000ml. bm8 Outcome: 01:35 Discharge ordered by MD. sb4 02:00 Discharged to home ambulatory, bm8 02:00 Condition: stable 02:00 Discharge instructions given to patient, family, Instructed on discharge instructions, follow up and referral plans. medication usage, safety practices, Demonstrated understanding of instructions, follow-up care, medications, Prescriptions given X 1, 02:04 Patient left the ED. bm8 Signatures: Dispatcher [employer] EDMS Oziel Brush Lacie, RN RN lg3 Rossi Gupta RN RN vc1 Debby Patterson PA-C PASonny sb4 Silva Mishra Brad RN RN bm8
--- NOTE | 2024-02-10 01:35 | EDPHYS ---
Physician Documentation [facility] Name: Lilliam Brar Age: 48 yrs Sex: Female : 1975 Arrival Date: 02/09/2024 Time: 21:14 Bed 6 Private MD: ED Physician Ryan Borja HPI: 02/09 02:55 This 48 yrs old Female presents to ER via Ambulatory with complaints of sb4 Nausea/Vomiting/Diarrhea, Abdominal Pain. 02:55 The patient presents to the emergency department with nausea, vomiting, diarrhea, sb4 abdominal pain. Onset: The symptoms/episode began/occurred this morning. Possible causes: bad food exposure. The symptoms are aggravated by nothing. The symptoms are alleviated by nothing. Associated signs and symptoms: The patient has no apparent associated signs or symptoms. The patient has not experienced similar symptoms in the past. The patient has not recently seen a physician. 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 - Infectious Disease History:: Denies. - Social history:: Smoking status: Patient denies any tobacco usage or history of. ROS: 02/09 02:55 Constitutional: Negative for fever, chills, and weight loss, sb4 Abdomen/GI: Positive for abdominal pain, nausea, vomiting, and diarrhea, All other systems are negative, Exam: 02:55 Head/Face: Normocephalic, atraumatic. Eyes: Extra-ocular motions intact. Periorbital sb4 areas with no swelling, redness, or edema. ENT: Mucous membranes moist. Cardiovascular: Regular rate and rhythm with a normal S1 and S2. Respiratory: Lungs have equal breath sounds bilaterally, clear to auscultation and percussion. No rales, rhonchi or wheezes noted. No increased work of breathing, no retractions or nasal flaring. Skin: Warm, dry with normal turgor. Normal color with no rashes, no lesions, and no evidence of cellulitis. 02:55 Constitutional: The patient appears alert, awake, uncomfortable, 02:55 Abdomen/GI: Inspection: abdomen appears normal, Bowel sounds: normal, Palpation: soft, mild abdominal tenderness, in the right upper quadrant, left upper quadrant, right lower quadrant and left lower quadrant, voluntary guarding, is not appreciated, involuntary guarding, is not appreciated, Vital Signs: 02/08 22:29 BP 132 / 96; Pulse 95; Resp 18; Pulse Ox 100% ; Weight 85.28 kg; Height 5 ft. 3 in. ; vc1 Pain 10/10; 02/09 00:29 BP 109 / 64; Pulse 66; Resp 16 S; Pulse Ox 98% on R/A; lg3 02:00 BP 107 / 68; Pulse 74; Resp 17; Temp 98; Pulse Ox 97% ; Pain 0/10; bm8 02/08 22:29 Body Mass Index 33.30 (85.28 kg, 160.02 cm) vc1 02/08 22:29 Pain Scale: Adult vc1 02:00 Pain Scale: Adult bm8 Mack Coma Score: 02:00 Eye Response: spontaneous(4). Motor Response: obeys commands(6). Verbal Response: bm8 oriented(5). Total: 15. MDM: 02/08 21:19 Patient medically screened. sb4 02/09 02:56 Data reviewed: vital signs, nurses notes, lab test result(s), radiologic studies, and sb4 as a result, I will discharge patient. Counseling: I had a detailed discussion with the patient and/or guardian regarding the historical points, exam findings, and any diagnostic results supporting the discharge/admit diagnosis, lab results, radiology results, to return to the emergency department if symptoms worsen or persist or if there are any questions or concerns that arise at home. 02/08 22:20 Order name: CBC with Diff; Complete Time: 23:25 sb4 02/08 22:20 Order name: CMP; Complete Time: 23:09 sb4 02/08 22:20 Order name: Lipase; Complete Time: 23:09 sb4 02/08 22:20 Order name: Test, Urine; Complete Time: 23:09 sb4 02/08 22:20 Order name: Urinalysis w/ reflexes; Complete Time: 23:12 sb4 02/08 23:09 Order name: CT Abd/Pelvis - IV Contrast Only sb4 02/08 22:20 Order name: IV Saline Lock; Complete Time: 22:47 sb4 02/08 22:20 Order name: Labs collected and sent; Complete Time: 22:47 sb4 02/09 01:07 Order name: PO challenge; Complete Time: 01:14 sb4 Administered Medications: 02/08 23:07 Drug: NS 0.9% IV 1000 ml IV at 1 bolus Per protocol; 1000 mL bolus Route: IV; Rate: 1 bm8 bolus; Site: right antecubital; 02/09 01:14 Follow up: Response: No adverse reaction; IV Status: Completed infusion; IV Intake: bm8 1000ml 02/08 23:07 Drug: morphine IVP or IV 4 mg IVP once over 4 mins Route: IVP; Infused Over: 4 mins; bm8 Site: right antecubital; 02/09 01:14 Follow up: Response: No adverse reaction bm8 02/08 23:07 Drug: Ondansetron IVP 4 mg IVP once; over 2 minutes Route: IVP; Site: right antecubital;bm8 02/09 01:14 Follow up: Response: No adverse reaction bm8 02/08 23:45 Drug: Ketorolac IVP 30 mg IVP once Route: IVP; Site: right antecubital; lg3 02/09 01:14 Follow up: Response: No adverse reaction bm8 02/08 23:45 Drug: Promethazine IVP 12.5 mg IVP once Route: IVP; Site: right antecubital; lg3 02/09 01:15 Follow up: Response: No adverse reaction 8 01:14 Drug: Potassium PO Effervescent Tablet 25 mEq PO once; dissolve in 4 ounces of water or bm8 juice Route: PO; 02:04 Follow up: Response: No adverse reaction bm8 Disposition: 04:12 Co-signature as Attending Physician, Ryan Borja MD I reviewed the patient's care rt provided by the Advanced Practice Provider and agree with the diagnosis and treatment plan. Disposition Summary: 02/10/24 01:35 Discharge Ordered Notes: Location: Home sb4 Problem: new sb4 Symptoms: have improved sb4 Condition: Stable sb4 Diagnosis - Other viral enteritis sb4 Followup: sb4 - With: Emergency Department - When: As needed - Reason: Worsening of condition Discharge Instructions: - Discharge Summary Sheet sb4 - Viral Gastroenteritis, Adult, [id number] sb4 Forms: - Work release form sb4 - Patient Portal Instructions sb4 - Leadership Thank You Letter sb4 Prescriptions: - ondansetron 8 mg Oral Tablet,disintegrating - take 1 tablet ORAL route every 8 hours; 12 tablet; Refills: 0, Product sb4 Selection Permitted Signatures: Dispatcher [employer] EDMaria Del Carmen Bui RN RN lg3 Rossi Gupta RN RN vc1 Debby Patterson, PA-C PA-C sb4 Ryan Borja MD MD rt Zeb Velazquez, RN RN bm8
[2024-02-10 02:53] VITALS: BP 109/64; O2SAT 98
--- NOTE | 2024-02-10 03:08 | RAD REPORT ---
EXAM: Abdomen Pelvis W Contrast CLINICAL INDICATION: 48-year-old female with nausea, vomiting and diarrhea with abdominal pain. COMPARISON: 10/11/2022 EXAMINATION: CT of the abdomen and pelvis was performed following intravenous administration of contr ast. Oral contrast was not administered. Multiplanar reformatted images were provided. This exam was performed according to our departmental dose optimization program which includes use of automated exposure control, adjustment of the mA and/or kV according to patient size and/or use of iterative reconstruction technique. FINDINGS: Chest: Evaluation through the lung bases reveals no focal opacity, pleural effusion or pneumothorax. Heart size is within normal limits. No pericardial effusion. Abdomen and pelvis: The liver, gallbladder, pancreas, spleen, bilateral kidneys and bilateral adrenal glands are within normal limits. Nonobstructing 1 x 4 mm calculus within the left renal pelvis. The vessels are patent and normal in caliber. No abdominopelvic lymph nodes are noted to be pathologically enlarged by CT measurement criteria. The bowel is within normal limits without abnormal bowel wall thickness or bowel dilation. Unformed s tool present throughout the large and small bowel compatible with liquid fecal content/diarrhea, raising the question of enteritis. No free air. No free abdominopelvic fluid collections. The appendix is identified coursing inferiorly from the medial cecum, fluid-filled with wall enhancement and top normal in size, measuring up to 7 mm, however without findings to suggest periappendiceal stranding. Please correlate with patient's clinical findings. Thickened appearance of the bladder wall may be secondary to incomplete distention, however can be se en in the setting of infectious or inflammatory process. Please correlate with laboratory values. The osseous structures are within normal limits. IMPRESSION: 1. No specific acute intra-abdominal findings are noted to suggest etiology of the patient's abdomi nal pain. 2. Unformed stool present throughout the large and small bowel compatible with liquid fecal content /diarrhea, raising the question of enteritis. 3. The appendix is identified coursing inferiorly from the medial cecum, fluid-filled with wall enh ancement and top normal in size, measuring up to 7 mm, however without findings to suggest periappendiceal stranding. Please correlate with patient's clinical findings. 4. Thickened appearance of the bladder wall may be secondary to incomplete distention, however can be seen in the setting of infectious or inflammatory process. Please correlate with laboratory values. 5. Nonobstructing 1 x 4 mm calculus within the left renal pelvis. Electronically signed by: Erin Weeks MD 02/10/2024 12:54 AM CDT RP Due to temporary technical issues with the PACS/[employer] reporting system, reports are being carolyn d by the in-house radiologist without review as a courtesy to ensure prompt reporting the interpreting radiologist is fully responsible for the content of the report. Transcribed Date/Time: 02/10/2024 3:08 AM
== END 2024-02-10 02:04 | disposition home or self-care (01) ==
LOC: ER 21:14
DX: A08.39 Other viral enteritis (principal)
CPT/HCPCS: 96361; 85025; 81001; 36415; 81025; 83690; 80053; 74177; 96375; 96374; 99285; Q9967; J2550; J2405; J7030

== ENCOUNTER 2024-05-27 14:21 | Emergency (ER) | payer OTHER ==
[2024-05-27 15:38] LABS: Absolute Lymphocytes (CBC) 0.8 K/uL (0.7-4.9); Absolute Monocytes 0.4 K/uL (0.1-1.3); Absolute Neutrophil 6.7 K/uL (1.8-8.0); Basophils % 0.4 % (0-1.3); Eosinophils % 0.3 % (0-4.4); Lymphocytes % 9.6 % (15.3-44.8); MCH 30.1 pg (27.0-35.0); MCHC 34.3 g/dL (32.0-36.0); MCV 87.8 fL (80-100); MPV 8.3 fL (7.6-11.3); Monocytes % 5.6 % (3.3-12.3); Neutrophils % 84.1 % (41.7-73.7); Platelets 257 thou/uL (152-406); RBC Red Blood Cell Count 4.32 M/uL (3.86-4.86); Red Cell Distribution Width 13.8 % (12.1-15.2)
[2024-05-27 15:39] LABS: Specific Gravity 1.018 (1.005-1.030); Urine Bilirubin NEGATIVE (Negative); Urine Blood Negative (Negative); Urine Clarity Turbid (Clear); Urine Color Light-Yellow (Yellow); Urine Culture Reflex Order REFLEXED; Urine Glucose NEGATIVE (Negative); Urine Ketones 2+ (Negative); Urine Microscopic Reflex YN ORDER UMIC; Urine Mucus Slight /HPF (None Seen); Urine Nitrite NEGATIVE (Negative); Urine Protein NEGATIVE (Negative); Urine RBC <5 /HPF (None Seen); Urine Urobilinogen Normal (Normal); Urine WBC 20-50 /HPF (<5); Urine pH 7.5 (5.0-7.0)
[2024-05-27 15:40] LABS: Urine Bacteria <20 /HPF (<20)
[2024-05-27 15:50] LABS: Albumin 3.5 g/dL (3.4-5.0); Albumin/Globulin Ratio 0.7 (1.1-1.8); Bilirubin Total 1.3 mg/dL (0.2-1.0); Globulin 5.1 g/dL (2.3-3.5); Protein, Total 8.6 g/dL (6.4-8.2)
[2024-05-27] MEDS ORDERED: KETOROLAC 30 MG/ML INJ ONE (16:11)
[2024-05-27] MEDS ORDERED: CEFTRIAXONE 1000 MG/VIAL ONE ×2 (16:11→17:25)
[2024-05-27] MEDS ORDERED: ONDANSETRON 4 MG/2 ML VIAL ONE (16:11)
[2024-05-27] MEDS ORDERED: NA CHLORIDE 0.9% 1,000 ML ONE (16:12)
[2024-05-27] MEDS ORDERED: FAMOTIDINE 20 MG/2 ML VIAL IV ONE (16:12)
[2024-05-27] MEDS ORDERED: MORPHINE 4 MG/ML SYR ONE (16:12)
--- NOTE | 2024-05-27 16:22 | RAD REPORT ---
EXAMINATION: CT ABDOMEN AND PELVIS WITH CONTRAST CLINICAL INDICATION: Female, 48 years old.ABD PAIN TECHNIQUE: CT abdomen and pelvis was performed, after the administration of IV contrast, [facility]. Axial, sagittal and coronal reconstructions were obtained. One or more of the following dose reduction techniques were used: Automated exposure control, adjustment of the mA and/o r kV according to patient size, and/or iterative reconstruction. Unless otherwise specified, incidental findings do not require dedicated imaging follow-up. [id number]. COMPARISON: 02/09/2024 FINDINGS: LOWER CHEST: No acute process identified.No significant pericardial effusion. UPPER GI: No significant abnormality. LIVER: No significant focal abnormality. GALLBLADDER/BILE DUCTS: No biliary ductal dilatation.? PANCREAS: No mass, ductal dilation, or denisse-pancreatic fluid. SPLEEN: Unremarkable. ADRENALS: No adrenal masses. KIDNEYS AND URETERS: Moderate left-sided hydroureteronephrosis secondary to a 5 mm stone in the left mid ureter.Delayed left nephrogram.Punctate stone lower pole left kidney.No suspicious renal lesions. ABDOMINAL AORTA AND OTHER VESSELS: Normal caliber aorta and IVC. PERITONEUM: No abnormal free fluid. No free air. LYMPH NODES: No pathologic lymphadenopathy. ABDOMINAL WALL: Small fat containing umbilical hernia. SMALL BOWEL/COLON: Small bowel has normal course and caliber. No colonic wall thickening or pericolon ic inflammatory changes.Normal appendix. Mild diverticulosis without diverticulitis. URINARY BLADDER: Underdistended but grossly unremarkable. REPRODUCTIVE ORGANS: No pathologic process. MUSCULOSKELETAL: No acute or suspicious osseous abnormality. ADDITIONAL FINDINGS: None. IMPRESSION: Moderate left-sided hydroureteronephrosis secondary to a 5 mm stone in the left mid ureter.
--- NOTE | 2024-05-27 16:38 | ER ---
Nurse's Notes [facility] Name: Lilliam Brar Age: 48 yrs Sex: Female : 1975 Arrival Date: 05/27/2024 Time: 14:21 Bed 7 Private MD: Diagnosis: Pyelonephritis acute;Fever, unspecified;Systemic lupus erythematosus, unspecified;Hydronephrosis with renal and ureteral calculous obstruction-5 mm left mid ureter Presentation: 05/27 14:48 Chief complaint: Patient states: Fever since Friday last week. Diagnosed with urine ll1 infection, started antibiotics but getting worse. LUQ abdominal pain that wraps around to L flank. +nausea. Coronavirus screen: Client denies travel out of the [place] in the last 14 days. At this time, the client does not indicate any symptoms associated with coronavirus-19. Ebola Screen: Patient denies travel to an Ebola-affected area in the 21 days before illness onset. Initial Sepsis Screen: Does the patient meet any 2 criteria? No. Patient's initial sepsis screen is negative. Does the patient have a suspected source of infection? No. Patient's initial sepsis screen is negative. Risk Assessment: Do you want to hurt yourself or someone else? Patient reports no desire to harm self or others. Onset of symptoms was May 21, 2024. 14:48 Method Of Arrival: Wheelchair ll1 14:48 Acuity: JUNI 3 ll1 14:48 Acuity: JUNI 3 ll1 Triage Assessment: 14:48 General: Appears uncomfortable, Behavior is calm, cooperative, appropriate for age. ll1 Pain: Complains of pain in L abdomen Quality of pain is described as aching, crampy. GI: Reports upper abdominal pain, nausea. : Reports pain in left flank(s), diagnosed with urine infection. Musculoskeletal: Reports pain in low back. Historical: - Allergies: 14:47 shrimp; ll1 - PMHx: 14:47 Hypothyroidism; CAD; diabetes mellitus; Lupus; Hypertension; ectopic ; ll1 - PSHx: 14:47 cardiac stent; section; hysterectomy ( section); ll1 - Immunization history:: Adult Immunizations up to date. - Social history:: Smoking status: Patient denies any tobacco usage or history of. - Family history:: not pertinent. Screenin:51 [facility] ED Fall Risk Assessment (Adult) History of falling in the last 3 months, cm10 including since admission No falls in past 3 months (0 pts) Confusion or Disorientation No (0 pts) Intoxicated or Sedated No (0 pts) Impaired Gait No (0 pts) Mobility Assist Device Used No (0 pt) Altered Elimination No (0 pt) Score/Fall Risk Level 0 - 2 = Low Risk Oriented to surroundings, Maintained a safe environment, Hourly rounding (assess needs \T\ fall precautionary measures) done. Abuse screen: Denies threats or abuse. Denies injuries from another. Nutritional screening: No deficits noted. Tuberculosis screening: No symptoms or risk factors identified. Assessment: 15:26 Reassessment: Patient and/or family updated on plan of care and expected duration. Pain ll1 level reassessed. 16:40 Reassessment: Attempt by Dr. Rothman to initiate transfer to [facility]. No answer.kj2 16:42 Reassessment: attempt to call [facility] transfer center to initiate transfer. No kj2 answer. 17:50 Reassessment: Patient appears in no apparent distress at this time. Patient and/or cm10 family updated on plan of care and expected duration. Pain level reassessed. Patient is alert, oriented x 3, equal unlabored respirations, skin warm/dry/pink. 17:50 General: Appears in no apparent distress. uncomfortable, Behavior is calm, cooperative. cm10 Neuro: No deficits noted. Level of Consciousness is awake, alert, obeys commands, Oriented to person, place, time, situation, Appropriate for age. Respiratory: No deficits noted. Airway is patent Respiratory effort is even, unlabored, Respiratory pattern is regular, symmetrical. 18:45 Reassessment: Patient appears in no apparent distress at this time. Patient and/or jb4 family updated on plan of care and expected duration. Pain level reassessed. Patient is alert, oriented x 3, equal unlabored respirations, skin warm/dry/pink. Vital Signs: 14:48 BP 145 / 85; Pulse 110; Resp 18; Temp 99.2; Pulse Ox 100% on R/A; Weight 90.72 kg; ll1 Height 5 ft. 3 in. ; Pain 10/10; 17:30 BP 166 / 60; Pulse 97; Resp 18; Pulse Ox 99% on R/A; cm10 18:45 BP 126 / 75; Pulse 95; Resp 16; Pulse Ox 98% on R/A; jb4 14:48 Body Mass Index 35.43 (90.72 kg, 160.02 cm) ll1 14:48 Pain Scale: Adult ll1 ED Course: 14:39 Patient arrived in ED. al6 14:42 Levy Rothman MD is Attending Physician. denise 14:50 Triage completed. ll1 14:51 Arm band placed on. ll1 15:20 Radiology exam delayed due to lab results not completed at this time. (BUN/Creatinine) nj IV insertion attempt and/or patient not having appropriate IV at this time. 15:20 Inserted saline lock: 22 gauge in left antecubital area, using aseptic technique. Blood nh2 collected. Flushed with 10 mL NS. 15:24 CBC with Diff Sent. nh2 15:24 CMP Sent. nh2 15:24 Lipase Sent. nh2 15:24 Urinalysis w/ reflexes Sent. nh2 15:25 Patient placed in an exam room, on a stretcher. ll1 16:08 John Haro, RN is Primary Nurse. rs5 16:12 CT Abd/Pelvis - IV Contrast Only In Process Unspecified. EDMS 17:22 Inserted saline lock: 20 gauge in right forearm, using aseptic technique. Blood cm10 collected. Flushed with 10 mL NS. 17:36 initiated transfer to [facility]. bd 17:51 Patient has correct armband on for positive identification. Bed in low position. Call cm10 light in reach. Side rails up X2. Provided Education on: ER process and procedures.. Pulse ox on. NIBP on. 19:15 No provider procedures requiring assistance completed. Patient transferred, IV remains jb4 in place. Administered Medications: 15:10 Drug: NS 0.9% IV 1000 ml IV at 1 bolus Per protocol; to be given as a bolus over 60 rs5 minutes Route: IV; Rate: 1 bolus; Site: left antecubital; 17:00 Follow up: Response: No adverse reaction; IV Status: Completed infusion; IV Intake: cm10 1000ml 15:20 Drug: Famotidine IVP 20 mg IVP once; dilute with 10 mL 0.9% NaCl; give over 2 minutes rs5 Route: IVP; Site: left antecubital; 17:00 Follow up: Response: No adverse reaction cm10 15:20 Drug: TORadol - Ketorolac IVP 15 mg IVP once Route: IVP; Site: left antecubital; rs5 17:00 Follow up: Response: No adverse reaction cm10 15:20 Drug: Ondansetron IVP 4 mg IVP once; over 2 minutes Route: IVP; Site: left antecubital; rs5 17:00 Follow up: Response: No adverse reaction cm10 16:10 Drug: Rocephin IV 1 grams IV at per protocol once; Given slow IV push per pharmacy rs5 instructions Route: IV; Rate: per protocol; Site: left antecubital; 16:15 Follow up: Response: No adverse reaction; IV Status: Completed infusion; IV Intake: [id number] 16:30 Drug: morphine IVP or IV 4 mg IVP once over 4 mins Route: IVP; Infused Over: 4 mins; rs5 Site: left antecubital; 17:00 Follow up: Response: No adverse reaction cm10 17:38 Drug: Acetaminophen PO 1000 mg PO once Route: PO; cm10 18:05 Follow up: Response: No adverse reaction cm10 17:38 Drug: Rocephin IV 1 grams IV at per protocol once; Given slow IV push per pharmacy cm10 instructions Route: IV; Rate: per protocol; Site: right forearm; 17:45 Follow up: Response: No adverse reaction; IV Status: Completed infusion; IV Intake: [id number] 17:39 Drug: NS 0.9% IV (30 ml/kg) 30 ml/kg IV at bolus once; Sepsis Protocol; to be given as cm10 a bolus over 90 minutes Route: IV; Rate: bolus; Site: left antecubital; 17:39 Not Given (Physician Discretion): [id number] mg 150 ml IVPB once over 90 mins cm10 17:39 Drug: Flomax PO 0.4 mg PO once Route: PO; cm10 18:05 Follow up: Response: No adverse reaction cm10 17:45 Drug: levofloxacin IVPB 500 mg 100 ml IVPB once over 60 mins Volume: 100 ml; Route: cm10 IVPB; Infused Over: 60 mins; Site: right forearm; Medication: 17:51 VIS not applicable for this client. cm10 Intake: 16:15 IV: 10ml; Total: 10ml. cm10 17:00 IV: 1000ml; Total: 1010ml. cm10 17:45 IV: 10ml; Total: 1020ml. cm10 Outcome: 16:37 ER care complete, transfer ordered by MD. walker 19:15 Transferred by ground EMS to [facility], Transfer form completed. jb4 X-rays sent w/ patient. 19:15 Condition: stable 19:15 Discharge instructions given to patient, Instructed on the need for transfer, Demonstrated understanding of instructions, 19:40 Patient left the ED. jb4 Signatures: Dispatcher [employer] EDMS Mary Jo Chacko Corey, MD MD cha Bryson, James, RN RN jb4 Marvin Kamara Lynsay RN RN ll1 John Haro, RN RN rs5 Ricarda Pereyra RN RN cm10 Maude Kamara RN RN kj2 Damon Gillette Jr, Alissa al6 Corrections: (The following items were deleted from the chart) 14:48 14:47 Allergies: No Known Drug Allergies; ll1 ll1 17:51 17:50 Reassessment: Patient appears in no apparent distress at this time. Patient cm10 and/or family updated on plan of care and expected duration. Pain level reassessed. Patient is alert, oriented x 3, equal unlabored respirations, skin warm/dry/pink. cm10
--- NOTE | 2024-05-27 16:38 | EDPHYS ---
Physician Documentation [facility] Name: Lilliam Brar Age: 48 yrs Sex: Female : 1975 Arrival Date: 05/27/2024 Time: 14:21 Bed 7 Private MD: JAY Physician Levy Rothman HPI: 05/27 16:31 This 48 yrs old Female presents to ER via Wheelchair with complaints of Low denise Back Pain, Abdominal Pain. 16:31 The patient presents with pain that is acute, with no known mechanism of injury. The denise symptoms are located in the left low back and left mid back. The pain does not radiate. The problem was sustained from unknown cause. Modifying factors: The patient symptoms are alleviated by nothing, the patient symptoms are aggravated by coughing, movement, walking. Associated signs and symptoms: The patient has no apparent associated signs or symptoms. Severity of symptoms: At their worst the symptoms were moderate, in the emergency department the symptoms are unchanged. The patient has not experienced similar symptoms in the past. Historical: - Allergies: 14:47 shrimp; ll1 - PMHx: 14:47 Hypothyroidism; CAD; diabetes mellitus; Lupus; Hypertension; ectopic ; ll1 - PSHx: 14:47 cardiac stent; section; hysterectomy ( section); ll1 - Immunization history:: Adult Immunizations up to date. - Social history:: Smoking status: Patient denies any tobacco usage or history of. - Family history:: not pertinent. ROS: 16:32 Constitutional: Negative for fever, chills, and weight loss, Eyes: Negative for injury, denise pain, redness, and discharge, ENT: Negative for injury, pain, and discharge, Neck: Negative for injury, pain, and swelling, Cardiovascular: Negative for chest pain, palpitations, and edema, Respiratory: Negative for shortness of breath, cough, wheezing, and pleuritic chest pain, Abdomen/GI: Negative for abdominal pain, nausea, vomiting, diarrhea, and constipation, MS/Extremity: Negative for injury and deformity, Skin: Negative for injury, rash, and discoloration, Neuro: Negative for headache, weakness, numbness, tingling, and seizure, 16:32 Back: Positive for flank pain, on the left, radiated pain, of the left low back and left mid back, 16:32 : Positive for urinary symptoms, urinary frequency, hematuria, burning with urination, difficulty urinating, foul smelling urine, Exam: 16:32 Head/Face: Normocephalic, atraumatic. Eyes: Pupils equal round and reactive to light, denise extra-ocular motions intact. Lids and lashes normal. Conjunctiva and sclera are non-icteric and not injected. Cornea within normal limits. Periorbital areas with no swelling, redness, or edema. ENT: Nares patent. No nasal discharge, no septal abnormalities noted. Tympanic membranes are normal and external auditory canals are clear. Oropharynx with no redness, swelling, or masses, exudates, or evidence of obstruction, uvula midline. Mucous membranes moist. Neck: Trachea midline, no thyromegaly or masses palpated, and no cervical lymphadenopathy. Supple, full range of motion without nuchal rigidity, or vertebral point tenderness. No Meningismus. Chest/axilla: Normal chest wall appearance and motion. Nontender with no deformity. No lesions are appreciated. Respiratory: Lungs have equal breath sounds bilaterally, clear to auscultation and percussion. No rales, rhonchi or wheezes noted. No increased work of breathing, no retractions or nasal flaring. Abdomen/GI: Soft, non-tender, with normal bowel sounds. No distension or tympany. No guarding or rebound. No evidence of tenderness throughout. Skin: Warm, dry with normal turgor. Normal color with no rashes, no lesions, and no evidence of cellulitis. MS/ Extremity: Pulses equal, no cyanosis. Neurovascular intact. Full, normal range of motion., bilateral aka Neuro: Awake and alert, GCS 15, oriented to person, place, time, and situation. Cranial nerves II-XII grossly intact. Motor strength 5/5 in all extremities. Sensory grossly intact. Cerebellar exam normal. Normal gait. Psych: Awake, alert, with orientation to person, place and time. Behavior, mood, and affect are within normal limits. 16:32 Constitutional: The patient appears febrile, 16:32 Back: pain, that is moderate, ROM is painless, normal spinal alignment noted, CVA tenderness, that is moderate, is noted on the left, vertebral tenderness, is not appreciated, muscle spasm, is not present, Vital Signs: 14:48 BP 145 / 85; Pulse 110; Resp 18; Temp 99.2; Pulse Ox 100% on R/A; Weight 90.72 kg; ll1 Height 5 ft. 3 in. ; Pain 10/10; 17:30 BP 166 / 60; Pulse 97; Resp 18; Pulse Ox 99% on R/A; cm10 18:45 BP 126 / 75; Pulse 95; Resp 16; Pulse Ox 98% on R/A; jb4 14:48 Body Mass Index 35.43 (90.72 kg, 160.02 cm) ll1 14:48 Pain Scale: Adult ll1 MDM: 14:42 Medical Screening Exam initiated denise 16:34 Differential diagnosis: fracture, sciatica, UTI. Data reviewed: vital signs, nurses [facility] notes, lab test result(s), radiologic studies, CT scan. Consideration of Admission/Observation Escalation of care including admission/observation considered. I considered the following discharge prescriptions or medication management in the emergency department Medications were administered in the Emergency Department. See MAR. Independent interpretation of the following test(s) in the Emergency Department CT Scan: My interpretation is ct abd pel . Test considered but Not performed: Ultrasound no renal usg. Historians other than the Patient: pt and family well informed. Care significantly affected by the following chronic conditions: Hypertension, Obesity, cad, stent, lupus , cad, hypothyroid. Post IV fluid administration reassessment for Sepsis: Client prescribed 30 mL/kg IVF. Sepsis focused reassessment complete. Counseling: I had a detailed discussion with the patient and/or guardian regarding the historical points, exam findings, and any diagnostic results supporting the discharge/admit diagnosis, lab results, radiology results, the need to transfer to another facility, for higher level of care, [facility] does not immediately have the required specialist. 05/27 14:42 Order name: CBC with Diff; Complete Time: 15:45 [facility] 05/27 14:42 Order name: CMP; Complete Time: 16:19 [facility] 05/27 14:42 Order name: Lipase; Complete Time: 16:19 [facility] 05/27 14:42 Order name: Urinalysis w/ reflexes; Complete Time: 15:45 [facility] 05/27 15:46 Order name: Urine Culture EDMS 05/27 15:46 Order name: Urine Culture [facility] 05/27 16:28 Order name: Lactate w/ 2H reflex if indic.; Complete Time: 17:54 [facility] 05/27 16:28 Order name: Blood Culture Adult (2) [facility] 05/27 14:42 Order name: CT Abd/Pelvis - IV Contrast Only; Complete Time: 16:29 [facility] 05/27 14:42 Order name: IV Saline Lock; Complete Time: 15:24 [facility] 05/27 14:42 Order name: Labs collected and sent; Complete Time: 15:24 [facility] 05/27 16:31 Order name: NPO; Complete Time: 16:32 [facility] Administered Medications: 15:10 Drug: NS 0.9% IV 1000 ml IV at 1 bolus Per protocol; to be given as a bolus over 60 rs5 minutes Route: IV; Rate: 1 bolus; Site: left antecubital; 17:00 Follow up: Response: No adverse reaction; IV Status: Completed infusion; IV Intake: cm10 1000ml 15:20 Drug: Famotidine IVP 20 mg IVP once; dilute with 10 mL 0.9% NaCl; give over 2 minutes rs5 Route: IVP; Site: left antecubital; 17:00 Follow up: Response: No adverse reaction cm10 15:20 Drug: TORadol - Ketorolac IVP 15 mg IVP once Route: IVP; Site: left antecubital; rs5 17:00 Follow up: Response: No adverse reaction cm10 15:20 Drug: Ondansetron IVP 4 mg IVP once; over 2 minutes Route: IVP; Site: left antecubital; rs5 17:00 Follow up: Response: No adverse reaction cm10 16:10 Drug: Rocephin IV 1 grams IV at per protocol once; Given slow IV push per pharmacy rs5 instructions Route: IV; Rate: per protocol; Site: left antecubital; 16:15 Follow up: Response: No adverse reaction; IV Status: Completed infusion; IV Intake: [id number] 16:30 Drug: morphine IVP or IV 4 mg IVP once over 4 mins Route: IVP; Infused Over: 4 mins; rs5 Site: left antecubital; 17:00 Follow up: Response: No adverse reaction cm10 17:38 Drug: Acetaminophen PO 1000 mg PO once Route: PO; cm10 18:05 Follow up: Response: No adverse reaction cm10 17:38 Drug: Rocephin IV 1 grams IV at per protocol once; Given slow IV push per pharmacy cm10 instructions Route: IV; Rate: per protocol; Site: right forearm; 17:45 Follow up: Response: No adverse reaction; IV Status: Completed infusion; IV Intake: [id number] 17:39 Drug: NS 0.9% IV (30 ml/kg) 30 ml/kg IV at bolus once; Sepsis Protocol; to be given as cm10 a bolus over 90 minutes Route: IV; Rate: bolus; Site: left antecubital; 17:39 Not Given (Physician Discretion): mg 150 ml IVPB once over 90 mins cm10 17:39 Drug: Flomax PO 0.4 mg PO once Route: PO; cm10 18:05 Follow up: Response: No adverse reaction cm10 17:45 Drug: levofloxacin IVPB 500 mg 100 ml IVPB once over 60 mins Volume: 100 ml; Route: cm10 IVPB; Infused Over: 60 mins; Site: right forearm; Disposition Summary: 05/27/24 16:37 Transfer Ordered Notes: Transfer Location: [facility] denise Reason: Higher level of care denise Condition: Fair denise Problem: new denise Symptoms: have improved denise Accepting Physician: to [facility](05/27/24 19:40) [email or web address] Diagnosis - Pyelonephritis acute denise - Fever, unspecified denise - Systemic lupus erythematosus, unspecified denise - Hydronephrosis with renal and ureteral calculous obstruction - 5 mm left mid ureter denise Forms: - Medication Reconciliation Form denise - SBAR form denise Signatures: Dispatcher [employer] EDLevy Chauhan MD MD cha Bryson, James RN RN jb4 Oriana Landeros RN RN ll1 John Haro RN RN rs5 Ricarda Pereyra RN RN cm10 Corrections: (The following items were deleted from the chart) 14:48 14:47 Allergies: No Known Drug Allergies; [facility] ll1 19:40 16:37 to [facility] denise hernandez
[2024-05-27] MEDS ORDERED: TAMSULOSIN 0.4 MG SR CAP ONE (17:25)
[2024-05-27] MEDS ORDERED: ACETAMINOPHEN 500 MG TAB ONE (17:25)
[2024-05-27] MEDS ORDERED: NA CHLORIDE 0.9% 2,000 ML ONE (17:26)
[2024-05-27] MEDS ORDERED: Levofloxacin500mg IV 500 MG/100 ML BAG IV ONE (17:44)
[2024-05-28 03:13] VITALS: BP 126/75; TEMP 99.2; O2SAT 98
== END 2024-05-27 19:40 | disposition short-term general hospital (02) ==
LOC: ER 14:21
DX: N10 Acute pyelonephritis (principal); N13.2 Hydronephrosis with renal and ureteral calculous obstruction; M32.9 Systemic lupus erythematosus, unspecified; Z95.818 Presence of other cardiac implants and grafts
CPT/HCPCS: 87040 ×2; 87088; 85025; 81001; 87086; 36415; 83605; 87077; 87186; 83690; 80053; 74177; 99285; Q9967; J2405; J7030 ×2; J0696 ×2

== ENCOUNTER 2024-08-12 00:46 | Observation (INO) | payer OTHER ==
[2024-08-12] MEDS ORDERED: MORPHINE 4 MG/ML SYR ONE ×2 (01:14→04:14)
[2024-08-12] MEDS ORDERED: ONDANSETRON 4 MG/2 ML VIAL ONE ×2 (01:14→03:02)
[2024-08-12] MEDS ORDERED: NA CHLORIDE 0.9% 1,000 ML ONE ×2 (01:15→07:01)
[2024-08-12 01:39] LABS: Albumin 3.8 g/dL (3.4-5.0); Albumin/Globulin Ratio 0.8 (1.1-1.8); Anion Gap 9.5 mEq/L (5.0-15.0); Globulin 4.6 g/dL (2.3-3.5); Potassium 3.5 mEq/L (3.5-5.1); Protein, Total 8.4 g/dL (6.4-8.2)
[2024-08-12] MEDS ORDERED: DICYCLOMINE HCL 20 MG/2 ML AMP IM ONE (01:39)
[2024-08-12 01:43] LABS: Calcium Oxalate Crystals- Ur Few /HPF (None Seen); Sqamous Epithelial <5 /HPF (None Seen); Urine Bacteria <20 /HPF (<20); Urine Culture Reflex Order NOT NEEDED; Urine Microscopic Reflex YN ORDER UMIC; Urine RBC <5 /HPF (None Seen); Urine WBC None Seen /HPF (<5)
[2024-08-12 01:44] LABS: Urine Bilirubin NEGATIVE (Negative); Urine Blood Negative (Negative); Urine Clarity Extremely Turbid (Clear); Urine Color Yellow (Yellow); Urine Glucose NEGATIVE (Negative); Urine Ketones TRACE (Negative); Urine Nitrite NEGATIVE (Negative); Urine Protein NEGATIVE (Negative); Urine Urobilinogen Normal (Normal); Urine pH 5.5 (5.0-7.0)
[2024-08-12 01:49] LABS: Absolute Eosinophils 0.1 K/uL (0-0.5); Absolute Lymphocytes (CBC) 2.2 K/uL (0.7-4.9); Absolute Monocytes 0.4 K/uL (0.1-1.3); Absolute Neutrophil 6.8 K/uL (1.8-8.0); Basophils % 0.1 % (0-1.3); Eosinophils % 1.1 % (0-4.4); Hematocrit 40.8 % (36.0-45.0); Hemoglobin 14.1 g/dL (12.0-15.0); Lymphocytes % 23.1 % (15.3-44.8); MCH 30.2 pg (27.0-35.0); MCHC 34.5 g/dL (32.0-36.0); MCV 87.4 fL (80-100); Neutrophils % 71.7 % (41.7-73.7); Nucleated Red Blood Cells % 0.1 % (0-0); Platelets 239 thou/uL (152-406); RBC Red Blood Cell Count 4.66 M/uL (3.86-4.86); Red Cell Distribution Width 14.8 % (12.1-15.2)
--- NOTE | 2024-08-12 02:59 | RAD REPORT ---
EXAM: CT Abdomen and Pelvis With Intravenous Contrast CLINICAL HISTORY: ABD PAIN TECHNIQUE: Axial computed tomography images of the abdomen and pelvis with intravenous contrast. Sagittal and coronal reformatted images were created and reviewed. This CT exam was performed using one or more of the following dose reduction techniques: automated exposure control, adjustment of the mA a nd/or kV according to patient size, and/or use of iterative reconstruction technique. COMPARISON: CT Abdomen Pelvis dated 05/27/2024 FINDINGS: Lung bases: Unremarkable. No mass. No consolidation. ABDOMEN: Liver: Unremarkable. No mass. Gallbladder and bile ducts: Unremarkable. No calcified stones. No ductal dilation. Pancreas: Unremarkable. No mass. No ductal dilation. Spleen: Unremarkable. No splenomegaly. Adrenals: Unremarkable. No mass. Kidneys and ureters: Unremarkable. Normal renal cortical enhancement. No calculi. No hydronephros is. Stomach and bowel: Colonic diverticula without adjacent inflammatory change. Small and large chad l air-fluid levels. No obstruction. No mucosal thickening. PELVIS: Appendix: Normal caliber appendix. No findings to suggest acute appendicitis. Bladder: The urinary bladder is decompressed. Reproductive: There has been a hysterectomy. No adnexal cysts or masses are identified. ABDOMEN and PELVIS: Intraperitoneal space: Unremarkable. No free air. No significant fluid collection. Bones/joints: Mild multilevel spondylosis. No acute fracture. No dislocation. Soft tissues: Small fat-containing supraumbilical and umbilical hernias. Vasculature: Unremarkable. No abdominal aortic aneurysm. Lymph nodes: Unremarkable. No enlarged lymph nodes. IMPRESSION: 1. Nonspecific small and large bowel air-fluid levels which can be seen in the clinical setting of diarrhea. 2. Other findings as above. Electronically signed by: Maira Reyes MD 08/12/2024 02:55 AM T Due to temporary technical issues with the PACS/[employer] reporting system, reports are being carolyn d by the in-house radiologist without review as a courtesy to ensure prompt reporting the interpreting radiologist is fully responsible for the content of the report. Transcribed Date/Time: 08/12/2024 2:59 AM
[2024-08-12] MEDS ORDERED: DIPHENOX/ATROP SULF 1 TAB PO ONE (03:14)
[2024-08-12] MEDS ORDERED: PROMETHAZINE INJ 25 MG/ML AMP ONE (04:36)
--- NOTE | 2024-08-12 05:17 | EDPHYS ---
Physician Documentation [facility] Name: Lilliam Brar Age: 49 yrs Sex: Female : 1975 Arrival Date: 08/12/2024 Time: 00:46 Bed 8 Private MD: Roberto Grace ED Physician Ryan Borja HPI: 08/12 04:04 This 49 yrs old Female presents to ER via Wheelchair with complaints of rt Abdominal Pain, Nausea/Vomiting/Diarrhea. 04:04 . rt 04:31 Patient presents to the ED with nausea, vomiting, diarrhea and generalized abdominal rt pain starting tonight. Has not been able to keep anything down by mouth. Denies hematemesis, and hematochezia. Denies other acute complaints at this time, symptoms are moderate in severity, no other aggravating alleviating factors.. 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 - Infectious Disease History:: Denies. - Social history:: Smoking status: Patient denies any tobacco usage or history of. Patient/guardian denies using alcohol, street drugs. - Family history:: not pertinent. ROS: 04:31 Constitutional: Negative for fever, chills, and weight loss, Cardiovascular: Negative rt for chest pain, palpitations, and edema, Respiratory: Negative for shortness of breath, cough, wheezing, and pleuritic chest pain, MS/Extremity: Negative for injury and deformity, Skin: Negative for injury, rash, and discoloration, Neuro: Negative for headache, weakness, numbness, tingling, and seizure, 04:31 Abdomen/GI: Positive for abdominal pain, nausea, vomiting, and diarrhea, Exam: 04:31 Constitutional: This is a well developed, well nourished patient who is awake, alert, rt and in no acute distress. Head/Face: Normocephalic, atraumatic. Chest/axilla: Normal chest wall appearance and motion. Nontender with no deformity. No lesions are appreciated. Cardiovascular: Regular rate and rhythm with a normal S1 and S2. No gallops, murmurs, or rubs. Normal PMI, no JVD. No pulse deficits. Respiratory: Lungs have equal breath sounds bilaterally, clear to auscultation and percussion. No rales, rhonchi or wheezes noted. No increased work of breathing, no retractions or nasal flaring. Skin: Warm, dry with normal turgor. Normal color with no rashes, no lesions, and no evidence of cellulitis. MS/ Extremity: Pulses equal, no cyanosis. Neurovascular intact. Full, normal range of motion. Neuro: Awake and alert, GCS 15, oriented to person, place, time, and situation. Cranial nerves II-XII grossly intact. Motor strength 5/5 in all extremities. Sensory grossly intact. Cerebellar exam normal. Normal gait. 04:31 Abdomen/GI: Tenderness diffusely without rebound, guarding, distention, Vital Signs: 01:05 BP 127 / 87; Pulse 81; Resp 16 S; Temp 98.4(O); Pulse Ox 100% on R/A; Weight 81.65 kg lg3 (R); Height 5 ft. 3 in. (R); Pain 10/10; 02:21 BP 124 / 65; Pulse 72; Resp 16; Pulse Ox 99% on R/A; jb4 04:17 BP 128 / 69; Pulse 70; Resp 17; Pulse Ox 98% on R/A; lg3 01:05 Body Mass Index 31.89 (81.65 kg, 160.02 cm) lg3 01:05 Pain Scale: Adult lg3 MDM: 01:00 Medical Screening Exam initiated rt 04:31 Differential diagnosis: Gastroenteritis, pancreatitis, bowel obstruction. Data rt reviewed: vital signs, nurses notes, lab test result(s), radiologic studies. Consideration of Admission/Observation Patient was admitted/placed on observation. Management of patient was discussed with the following: Hospitalist: Agrees to admit. I considered the following discharge prescriptions or medication management in the emergency department Medications were administered in the Emergency Department. See MAR. Independent interpretation of the following test(s) in the Emergency Department CT Scan: My interpretation is No bowel obstruction syndrome interpretation of CT scan images. Care significantly affected by the following chronic conditions: Diabetes, Hypertension. Counseling: I had a detailed discussion with the patient and/or guardian regarding the historical points, exam findings, and any diagnostic results supporting the discharge/admit diagnosis, lab results, radiology results, the need for further work-up and treatment in the hospital. Response to treatment: There is no appreciated change of the patient's symptoms at this time. 08/12 01:06 Order name: CBC with Diff; Complete Time: 02:03 rt 08/12 01:06 Order name: CMP; Complete Time: 02:03 rt 08/12 01:06 Order name: Lipase; Complete Time: 02:03 rt 08/12 01:06 Order name: Urinalysis w/ reflexes; Complete Time: 02:03 rt 08/12 05:58 Order name: CBC with Automated Diff EDMS 08/12 05:58 Order name: CBC with Automated Diff EDMS 08/12 05:58 Order name: Comprehensive Metabolic Panel EDMS 08/12 05:58 Order name: Comprehensive Metabolic Panel EDMS 08/12 07:14 Order name: Glucose, Ancillary Testing EDMS 08/12 01:06 Order name: CT Abd/Pelvis - IV Contrast Only rt 08/12 01:06 Order name: IV Saline Lock; Complete Time: 01:28 rt 08/12 01:06 Order name: Labs collected and sent; Complete Time: 01:28 rt Administered Medications: 01:28 Drug: Ondansetron IVP 4 mg IVP once; over 2 minutes Route: IVP; Site: right antecubital;jb4 02:00 Follow up: Response: No adverse reaction; Marked relief of symptoms jb4 01:28 Drug: morphine IVP or IV 4 mg IVP once over 4 mins Route: IVP; Infused Over: 4 mins; jb4 Site: right antecubital; 02:00 Follow up: Response: No adverse reaction; Marked relief of symptoms jb4 01:29 Drug: NS 0.9% IV 1000 ml IV at 1 bolus Per protocol; to be given as a bolus over 60 jb4 minutes Route: IV; Rate: 1 bolus; Site: right antecubital; 03:16 Follow up: Response: No adverse reaction; IV Status: Completed infusion; IV Intake: lg3 1000ml 02:09 Drug: Dicyclomine IM 20 mg IM once Route: IM; Site: right deltoid; jb4 03:08 Follow up: Response: No adverse reaction jb4 03:11 Drug: Ondansetron IVP 4 mg IVP once; over 2 minutes Route: IVP; Site: right antecubital;lg3 04:17 Follow up: Response: No adverse reaction lg3 03:16 Drug: Diphenoxylate-Atropine PO 1 tabs PO once Route: PO; lg3 04:16 Follow up: Response: No adverse reaction lg3 04:17 Follow up: Response: No adverse reaction lg3 04:03 CANCELLED (Duplicate Order): [id number] mg IVP once; over 1 to 2 minutes rt 04:03 CANCELLED (Duplicate Order): [id number] mg IVP once rt 04:16 Drug: morphine IVP or IV 4 mg IVP once over 4 mins Route: IVP; Infused Over: 4 mins; lg3 Site: right antecubital; 07:59 Follow up: Response: No adverse reaction; Pain is decreased ss 04:39 Drug: Promethazine IVP 12.5 mg IVP once Route: IVP; Site: right antecubital; lg3 07:59 Follow up: Response: No adverse reaction; Vomiting decreased ss Disposition Summary: 08/12/24 05:16 Hospitalization Ordered Notes: Hospitalization Status: Observation rt Provider: Rc Alcantar rt Condition: Stable rt Problem: new rt Symptoms: are unchanged rt Bed/Room Type: Standard rt Location: Telemetry/MedSurg (Inpatient)(08/12/24 12:04) 6 Room Assignment: 203(08/12/24 12:04) 6 Diagnosis - Intractable nausea vomiting rt - Diarrhea rt Forms: - Medication Reconciliation Form rt - SBAR form rt - Leadership Thank You Letter rt Signatures: Dispatcher [employer] Perez Haynes RN RN jb4 Maria Del Carmen Feng RN RN lg3 Rossi Gupta RN RN vc1 Ryan Borja MD MD rt Lucie Lr bc6 Eleanor Garcia RN ss Corrections: (The following items were deleted from the chart) 04:03 04:02 metoCLOPramide IVP 10 mg IVP once; over 1 to 2 minutes ordered. rt rt 04:03 04:02 diphenhydrAMINE IVP 25 mg IVP once ordered. rt rt 05:42 05:16 Telemetry/MedSurg (observation) rt vc1 05:42 05:16 rt vc1 12:04 05:42 [facility] ER HOLD vc1 bc6 12:04 05:42 ERHOLD- vc1 bc6
--- NOTE | 2024-08-12 05:17 | ER ---
Nurse's Notes [facility] Name: Lilliam Brar Age: 49 yrs Sex: Female : 1975 Arrival Date: 08/12/2024 Time: 00:46 Bed 8 Private MD: Roberto Grace Diagnosis: Intractable nausea vomiting;Diarrhea Presentation: 08/12 01:05 Chief complaint: Patient states: generalized abdominal pain, N/V/D since 1600 lg3 yesterday. Coronavirus screen: Client denies travel out of the [place] in the last 14 days. At this time, the client does not indicate any symptoms associated with coronavirus-19. Ebola Screen: No symptoms or risks identified at this time. Initial Sepsis Screen: Does the patient meet any 2 criteria? No. Patient's initial sepsis screen is negative. Does the patient have a suspected source of infection? No. Patient's initial sepsis screen is negative. Risk Assessment: Do you want to hurt yourself or someone else? Patient reports no desire to harm self or others. Onset of symptoms was August 11, 2024. 01:05 Method Of Arrival: Wheelchair lg3 01:05 Acuity: JUNI 3 lg3 Triage Assessment: 01:07 General: Appears in no apparent distress. uncomfortable, Behavior is calm, cooperative. lg3 Pain: Complains of pain in abdomen Pain currently is 10 out of 10 on a pain scale. Noted to be grimacing, guarding, moaning, resistant to movement. EENT: No deficits noted. No signs and/or symptoms were reported regarding the EENT system. Neuro: No deficits noted. Corey Agitation-Sedation Scale (RASS): 0 - Alert and Calm Level of Consciousness is awake, alert, obeys commands, Oriented to person, place, time, situation. Cardiovascular: No deficits noted. Denies chest pain, shortness of breath, Capillary refill < 3 seconds Clubbing of nail beds is absent JVD is absent Patient's skin is warm and dry. Respiratory: No deficits noted. Airway is patent Respiratory effort is even, unlabored, Respiratory pattern is regular, symmetrical. GI: Abdomen is round non-distended, obese, Abd is soft X 4 quads Reports lower abdominal pain, upper abdominal pain, diarrhea, nausea. : No signs and/or symptoms were reported regarding the genitourinary system. Derm: No deficits noted. No signs and/or symptoms reported regarding the dermatologic system. Skin is intact, is healthy with good turgor, Skin is dry, Skin is normal, Skin temperature is warm. Musculoskeletal: No deficits noted. No signs and/or symptoms reported regarding the musculoskeletal system. Circulation, motion, and sensation intact. Range of motion: intact in all extremities. 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 - Infectious Disease History:: Denies. - Social history:: Smoking status: Patient denies any tobacco usage or history of. Patient/guardian denies using alcohol, street drugs. - Family history:: not pertinent. Screenin:15 [facility] ED Fall Risk Assessment (Adult) History of falling in the last 3 months, jb4 including since admission No falls in past 3 months (0 pts) Confusion or Disorientation No (0 pts) Intoxicated or Sedated No (0 pts) Impaired Gait No (0 pts) Mobility Assist Device Used No (0 pt) Altered Elimination No (0 pt) Score/Fall Risk Level 0 - 2 = Low Risk Oriented to surroundings, Maintained a safe environment. Abuse screen: Denies threats or abuse. Nutritional screening: No deficits noted. Tuberculosis screening: No symptoms or risk factors identified. Assessment: :15 General: Appears in no apparent distress. comfortable, Behavior is calm, cooperative, jb4 appropriate for age. Pain: Complains of pain in umbilical area Pain does not radiate. Pain currently is 10 out of 10 on a pain scale. Quality of pain is described as crampy. Neuro: Level of Consciousness is awake, alert, obeys commands, Oriented to person, place, time, situation. Cardiovascular: Patient's skin is warm and dry. Respiratory: Airway is patent Respiratory effort is even, unlabored, Respiratory pattern is regular, symmetrical. GI: Abdomen is flat, non-distended, Reports upper abdominal pain, nausea. Derm: Skin is intact, Skin is pink, warm \T\ dry. 02:21 Reassessment: Patient appears in no apparent distress at this time. Patient and/or jb4 family updated on plan of care and expected duration. Pain level reassessed. Patient is alert, oriented x 3, equal unlabored respirations, skin warm/dry/pink. 04:17 Reassessment: Patient appears in no apparent distress at this time. No changes from lg3 previously documented assessment. Patient and/or family updated on plan of care and expected duration. Pain level reassessed. Patient is alert, oriented x 3, equal unlabored respirations, skin warm/dry/pink. Vital Signs: 01:05 BP 127 / 87; Pulse 81; Resp 16 S; Temp 98.4(O); Pulse Ox 100% on R/A; Weight 81.65 kg lg3 (R); Height 5 ft. 3 in. (R); Pain 10/10; 02:21 BP 124 / 65; Pulse 72; Resp 16; Pulse Ox 99% on R/A; jb4 04:17 BP 128 / 69; Pulse 70; Resp 17; Pulse Ox 98% on R/A; lg3 01:05 Body Mass Index 31.89 (81.65 kg, 160.02 cm) lg3 01:05 Pain Scale: Adult lg3 ED Course: 00:49 Patient arrived in ED. gm2 00:50 Roberto Grace MD is Private Physician. gm2 00:51 Ryan Borja MD is Attending Physician. rt 01:07 Triage completed. lg3 01:07 Arm band placed on right wrist. lg3 01:15 Patient has correct armband on for positive identification. Bed in low position. Call jb4 light in reach. Side rails up X 1. Provided Education on: plan of care. 01:15 No provider procedures requiring assistance completed. jb4 02:00 Inserted saline lock: 20 gauge in right antecubital area, using aseptic technique. mm11 Blood collected. Flushed with 10 mL NS. 02:02 CT Abd/Pelvis - IV Contrast Only In Process Unspecified. EDMS 02:17 Perez Rodríguez, SUZAN is Primary Nurse. jb4 05:16 Rc Alcantar MD is Hospitalizing Provider. rt 07:59 Patient admitted, IV remains in place. ss Administered Medications: 01:28 Drug: Ondansetron IVP 4 mg IVP once; over 2 minutes Route: IVP; Site: right antecubital;jb4 02:00 Follow up: Response: No adverse reaction; Marked relief of symptoms jb4 01:28 Drug: morphine IVP or IV 4 mg IVP once over 4 mins Route: IVP; Infused Over: 4 mins; jb4 Site: right antecubital; 02:00 Follow up: Response: No adverse reaction; Marked relief of symptoms jb4 01:29 Drug: NS 0.9% IV 1000 ml IV at 1 bolus Per protocol; to be given as a bolus over 60 jb4 minutes Route: IV; Rate: 1 bolus; Site: right antecubital; 03:16 Follow up: Response: No adverse reaction; IV Status: Completed infusion; IV Intake: lg3 1000ml 02:09 Drug: Dicyclomine IM 20 mg IM once Route: IM; Site: right deltoid; jb4 03:08 Follow up: Response: No adverse reaction jb4 03:11 Drug: Ondansetron IVP 4 mg IVP once; over 2 minutes Route: IVP; Site: right antecubital;lg3 04:17 Follow up: Response: No adverse reaction lg3 03:16 Drug: Diphenoxylate-Atropine PO 1 tabs PO once Route: PO; lg3 04:16 Follow up: Response: No adverse reaction lg3 04:17 Follow up: Response: No adverse reaction lg3 04:03 CANCELLED (Duplicate Order): [id number] mg IVP once; over 1 to 2 minutes rt 04:03 CANCELLED (Duplicate Order): [id number] mg IVP once rt 04:16 Drug: morphine IVP or IV 4 mg IVP once over 4 mins Route: IVP; Infused Over: 4 mins; lg3 Site: right antecubital; 07:59 Follow up: Response: No adverse reaction; Pain is decreased ss 04:39 Drug: Promethazine IVP 12.5 mg IVP once Route: IVP; Site: right antecubital; lg3 07:59 Follow up: Response: No adverse reaction; Vomiting decreased ss Medication: 03:01 VIS not applicable for this client. jb4 Intake: 03:16 IV: 1000ml; Total: 1000ml. lg3 Outcome: 05:16 Decision to Hospitalize by Provider. rt 07:00 Admitted to ER Hold. Please see [facility] for further documentation. 07:00 Condition: good 07:00 Instructed on the need for admit, 13:07 Patient left the ED. Signatures: Dispatcher [employer] Eleanor Rolon RN RN Perez Chew RN RN jb4 Maria Del Carmen Feng RN RN lg3 Ryan Borja MD MD rt Grisel Bartlett 2 julia augustine mm11
[2024-08-12] MEDS ORDERED: MORPHINE 2 MG/ML SYR IV PRN (05:56)
[2024-08-12] MEDS: NA CHLORIDE 0.9% 1,000 ML IV SCH (06:00)
--- NOTE | 2024-08-12 06:03 | P.HP ---
Patient History Date of Service: 08/12/24 History of Present Illness: 49-year-old female with a past medical history of CAD, hypothyroidism, lupus, and after multiple episodes of vomiting and diarrhea. She states it began yesterday night after eating salad and a protein shake. She denies bloody stools. Associated symptoms include abdominal pain. She denies fevers, chills, headaches, or flulike symptoms. Has not recently traveled anywhere Allergies No Known Drug Allergies Allergy (Verified 09/09/14 18:29) Unknown Home Medications: Aspirin 81 mg PO DAILY 03/19/18 Atorvastatin Calcium 20 mg PO DAILY 03/19/18 Levothyroxine [Synthroid*] 125 mcg PO DAILY 03/19/18 prasugrel HCL [Prasugrel HCl] 10 mg PO DAILY 03/19/18 Metoprolol Succinate 50 mg PO DAILY #30 tab.er.[id number] 03/20/18 - Past Medical/Surgical History Diabetic: No -: Hypothyroidism -: CAD, stent 2014 -: Hypertension -: Hyperlipidemia -: C section x2 -: Tubal ligation -: Ectopic Psychosocial/ Personal History: She is . She has 2 children. 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 - Family History Mother -: Heart disease, Hypertension Father -: Diabetes Notes: Denies - Social History Alcohol use: No CD- Drugs: No Caffeine use: Yes Review of Systems 10-point ROS is otherwise unremarkable General: As per HPI Gastrointestinal: Vomiting, Diarrhea Physical Examination - Physical Exam General: Alert HEENT: Normocephalic Neck: Supple Respiratory: Clear to auscultation bilaterally Cardiovascular: No edema Capillary refill: <2 Seconds Gastrointestinal: Normal bowel sounds Musculoskeletal: No clubbing Integumentary: No rashes Neurological: Normal speech Lymphatics: No axilla or inguinal lymphadenopathy - Studies Laboratory Data (last 24 hrs) 08/12/24 08/12/24 01:13 01:13 WBC 9.50 Hgb 14.1 Hct 40.8 Plt Count 239 Sodium 139 Potassium 3.5 BUN 14 Creatinine 0.71 Glucose 121 H Total Bilirubin 1.0 AST 15 ALT 24 Alkaline Phosphatase 86 Lipase 21 Assessment and Plan - Plan Gastroenteritis CAD Hypothyroidism Lupus Hyperlipidemia Zofran as needed, fluids, CT abdomen reviewed Continue statin, prasugrel, and aspirin Consider stool cultures if not improving Port of care with Tylenol Continue Synthroid DVT Prophylaxis with SCDs - Advance Directives Does patient have a Living Will: No Does patient have a Durable POA for Healthcare: No
[2024-08-12 06:31] VITALS: BMI 31.8
[2024-08-12] MEDS ORDERED: METOPROLOL XL 50 MG TAB PO ONE (08:49)
[2024-08-12] MEDS ORDERED: ATORVASTATIN 20 MG TAB ONE (08:49)
[2024-08-12] MEDS: LEVOTHYROXINE SOD 0.125 MG TAB PO SCH (08:55)
[2024-08-12] MEDS: ATORVASTATIN 20 MG TAB PO SCH (08:55)
[2024-08-12] MEDS: PRASUGREL (EFFIENT) 10 MG TAB PO SCH (08:55)
[2024-08-12] MEDS: METOPROLOL XL 50 MG TAB PO SCH (09:00)
[2024-08-12] MEDS: METOPROLOL XL 25 MG TAB PO SCH (10:23)
[2024-08-12] MEDS ORDERED: ONDANSETRON 4 MG/2 ML VIAL IV PRN (11:00)
[2024-08-12 13:43] VITALS: O2SAT 98
[2024-08-12] MEDS ORDERED: WATER FOR INJ,STERILE 10 ML IV SCH (14:00)
[2024-08-12] MEDS: HYDROCORTISONE SUC 100 MG INJ IV ONE (15:56)
[2024-08-12 16:04] VITALS: BP 97/55; TEMP 98
--- NOTE | 2024-08-19 13:44 | P.DS ---
Discharge Date: 08/12/24 Disposition: ROUTINE DISCHARGE Discharge Condition: GOOD Brief History of Present Illness: 49-year-old female with a past medical history of CAD, hypothyroidism, lupus, and after multiple episodes of vomiting and diarrhea. She states it began yesterday night after eating salad and a protein shake. She denies bloody stools. Associated symptoms include abdominal pain. She denies fevers, chills, headaches, or flulike symptoms. Has not recently traveled anywhere Hospital Course: Patient has done well during hospital stay. Clinically, patient is much better. At this time, patient is stable for discharge home. Patient will follow-up with consultants and PCP as an outpatient. Vital Signs/Physical Exam: Temp Pulse Resp BP Pulse Ox 98.0 F 64 16 97/55 L 96 08/12/24 16:00 08/12/24 16:00 08/12/24 16:00 08/12/24 16:00 08/12/24 16:00 General: Alert, In no apparent distress, Oriented x3 Laboratory Data at Discharge: WBC 9.50 thou/uL (4.3-10.9) 08/12/24 01:13 Hgb 14.1 g/dL (12.0-15.0) 08/12/24 01:13 Hct 40.8 % (36.0-45.0) 08/12/24 01:13 Plt Count 239 thou/uL (152-406) 08/12/24 01:13 Sodium 139 mEq/L (136-145) 08/12/24 01:13 Potassium 3.5 mEq/L (3.5-5.1) 08/12/24 01:13 BUN 14 mg/dL (7-18) 08/12/24 01:13 Creatinine 0.71 mg/dL (0.55-1.02) 08/12/24 01:13 Glucose 121 mg/dL (74-106) H 08/12/24 01:13 Total Bilirubin 1.0 mg/dL (0.2-1.0) 08/12/24 01:13 AST 15 U/L (15-37) 08/12/24 01:13 ALT 24 U/L (13-56) 08/12/24 01:13 Alkaline Phosphatase 86 U/L (45-117) 08/12/24 01:13 Lipase 21 U/L (13-75) 08/12/24 01:13 Home Medications: Atorvastatin Calcium 20 mg PO DAILY 03/19/18 Levothyroxine [Synthroid*] 125 mcg PO DAILY 03/19/18 prasugrel HCL [Prasugrel HCl] 10 mg PO DAILY 03/19/18 Metoprolol Succinate [Toprol Xl] 25 mg PO DAILY #30 tab.sr.24h 08/12/24 New Medications: Metoprolol Succinate [Toprol Xl] 25 mg PO DAILY #30 tab.sr.24h Physician Discharge Instructions: -Follow-up with PCP in 1 to 2 weeks -Follow-up with GI after discharge -Please call Dr. Schmidt at [phone] if any questions regarding hospital stay -Please call nursing station at [phone] if any nursing or medication questions -Return to the emergency room if symptoms worsen Diet: AHA Activity: Fall precautions Followup: Roberto Grace MD [Primary Care Provider] - Time spent managing pt's care (in minutes): 35
== END 2024-08-12 18:30 | disposition home or self-care (01) ==
LOC: ER 00:46 → ERHOLD 05:54 → 2ND 12:51
PROVIDERS: ADMIT Family Medicine; ATTEND Hospitalist
DX: K52.9 Noninfective gastroenteritis and colitis, unspecified (principal); R11.10 Vomiting, unspecified; R19.7 Diarrhea, unspecified; R10.9 Unspecified abdominal pain; I25.10 Atherosclerotic heart disease of native coronary artery without angina pectoris; E03.9 Hypothyroidism, unspecified; E78.5 Hyperlipidemia, unspecified; M32.9 Systemic lupus erythematosus, unspecified; Z79.82 Long term (current) use of aspirin
CPT/HCPCS: 36415; 74177; 80053; 81001; 82947; 83690; 85025; 96361; 96372; 96374; 96375; 99285; G0378; J0500; J1720; J2405; J2550; J7030; Q9967

== ENCOUNTER 2024-08-17 19:00 | Emergency (ER) | payer OTHER ==
[2024-08-17] MEDS ORDERED: MORPHINE 4 MG/ML SYR ONE (20:02)
[2024-08-17] MEDS ORDERED: ONDANSETRON 4 MG/2 ML VIAL ONE ×2 (20:02→21:47)
[2024-08-17] MEDS ORDERED: NA CHLORIDE 0.9% 1,000 ML ONE ×2 (20:03→21:47)
[2024-08-17] MEDS ORDERED: FAMOTIDINE 20 MG/2 ML VIAL IV ONE (20:03)
--- NOTE | 2024-08-17 20:05 | RAD REPORT ---
EXAM: Abdominal exam Limited ultrasound CLINICAL HISTORY: Abdominal pain COMPARISON: 2022 FINDINGS: A gallstone is not seen. Gallbladder wall not thickened. Biliary tree normal caliber IMPRESSION: No significant abnormalities displayed
--- NOTE | 2024-08-17 20:06 | RAD REPORT ---
Procedure: Chest Single View HISTORY: Abdominal pain COMPARISON: 2018 FINDINGS: The lungs appear clear of acute infiltrate. No significant pleural effusion noted. The heart is normal size. IMPRESSION: No acute abnormality is displayed.
[2024-08-17 20:22] LABS: Absolute Eosinophils 0.2 K/uL (0-0.5); Absolute Lymphocytes (CBC) 1.3 K/uL (0.7-4.9); Absolute Monocytes 0.6 K/uL (0.1-1.3); Absolute Neutrophil 9.4 K/uL (1.8-8.0); Basophils % 0.1 % (0-1.3); Eosinophils % 1.9 % (0-4.4); Hematocrit 38.3 % (36.0-45.0); Hemoglobin 13.3 g/dL (12.0-15.0); Lymphocytes % 11.3 % (15.3-44.8); MCHC 34.7 g/dL (32.0-36.0); MCV 86.5 fL (80-100); MPV 8.6 fL (7.6-11.3); Monocytes % 5.1 % (3.3-12.3); Neutrophils % 81.6 % (41.7-73.7); Platelets 247 thou/uL (152-406); RBC Red Blood Cell Count 4.43 M/uL (3.86-4.86); Red Cell Distribution Width 15.2 % (12.1-15.2)
[2024-08-17 20:29] LABS: PT Prothrombin Time 13.4 SECONDS (10-13.0); Protime INR 1.18
[2024-08-17 20:42] LABS: Urine Bacteria None Seen /HPF (<20); Urine Bilirubin NEGATIVE (Negative); Urine Blood 1+ (Negative); Urine Clarity Extremely Turbid (Clear); Urine Color Yellow (Yellow); Urine Culture Reflex Order NOT NEEDED; Urine Glucose NEGATIVE (Negative); Urine Ketones 2+ (Negative); Urine Microscopic Reflex YN ORDER UMIC; Urine Mucus 4+ /HPF (None Seen); Urine Nitrite NEGATIVE (Negative); Urine Protein TRACE (Negative); Urine RBC <5 /HPF (None Seen); Urine Urobilinogen Normal (Normal); Urine WBC <5 /HPF (<5); Urine pH 5.5 (5.0-7.0)
[2024-08-17 20:45] LABS: Albumin 3.7 g/dL (3.4-5.0); Albumin/Globulin Ratio 0.8 (1.1-1.8); Anion Gap 9.3 mEq/L (5.0-15.0); Bilirubin Direct 0.3 mg/dL (0-0.2); Bilirubin Indirect, Calculated 1.2 mg/dL (0.2-0.8); Bilirubin Total 1.5 mg/dL (0.2-1.0); Globulin 4.4 g/dL (2.3-3.5); Potassium 3.3 mEq/L (3.5-5.1); Protein, Total 8.1 g/dL (6.4-8.2); Troponin High Sensitivity 14.1 pg/mL (<58.9)
[2024-08-17] MEDS ORDERED: METOCLOPRAMIDE 10 MG/2mL INJ ONE (21:47)
[2024-08-17] MEDS ORDERED: DIPHENOX/ATROP SULF 1 TAB PO ONE (21:47)
--- NOTE | 2024-08-17 22:33 | EDPHYS ---
Physician Documentation [facility] Name: Jong Brar Age: 49 yrs Sex: Female : 1975 Arrival Date: 08/17/2024 Time: 19:00 Bed 18 Private MD: ED Physician Sj Das HPI: 08/17 20:07 This 49 yrs old Female presents to ER via Wheelchair with complaints of sp4 Abdominal Pain. 08/18 05:21 49-year-old female presents with abdominal pain associated with profuse vomiting.. sp4 05:22 Patient states she received her last dose of Ozempic on Friday and developed epigastric sp4 abdominal pain associated with nausea vomiting on Friday.. 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 - Infectious Disease History:: Denies. - Social history:: Smoking status: Patient denies any tobacco usage or history of. - Family history:: not pertinent. ROS: 08/18 05:22 Constitutional: Negative for fever, chills, and weight loss, positive for abdominal sp4 pain nausea vomiting and diarrhea. All other systems are negative, Exam: 05:22 Constitutional: This is a well developed, well nourished patient who is awake, alert, sp4 and in no acute distress. Head/Face: Normocephalic, atraumatic. Eyes: Pupils equal round and reactive to light, extra-ocular motions intact. Lids and lashes normal. Conjunctiva and sclera are not injected. Cornea within normal limits. Periorbital areas with no swelling, redness, or edema. ENT: Nares patent. No nasal discharge, no septal abnormalities noted. Tympanic membranes are normal and external auditory canals are clear. Oropharynx with no redness, swelling, or masses, exudates, or evidence of obstruction, uvula midline. Mucous membranes moist. Neck: Trachea midline, no thyromegaly or masses palpated, and no cervical lymphadenopathy. Supple, full range of motion without nuchal rigidity, or vertebral point tenderness. Chest/axilla: Normal chest wall appearance and motion. Nontender with no deformity. No lesions are appreciated. Cardiovascular: Regular rate and rhythm with a normal S1 and S2. No gallops, murmurs, or rubs. Normal PMI, no JVD. No pulse deficits. Respiratory: Lungs have equal breath sounds bilaterally, clear to auscultation and percussion. No rales, rhonchi or wheezes noted. No increased work of breathing, no retractions or nasal flaring. Abdomen/GI: Soft, with normal bowel sounds. No distension or tympany. No guarding or rebound. No evidence of tenderness throughout. Back: No spinal tenderness. No costovertebral tenderness. Skin: Warm, dry with normal turgor. Normal color with no rashes, no lesions, and no evidence of cellulitis. MS/ Extremity: Pulses equal, no cyanosis. Neurovascular intact. Full, normal range of motion. Neuro: Awake and alert, GCS 15, oriented to person, place, time, and situation. Cranial nerves II-XII grossly intact. Motor strength 5/5 in all extremities. Sensory grossly intact. Psych: Awake, alert, with orientation to person, place and time. Behavior, mood, and affect are within normal limits 05:22 ECG was reviewed by the Attending Physician. EKG at 2021 normal sinus rhythm rate 86 Vital Signs: 08/17 19:19 BP 109 / 55; Pulse 96; Resp 19; Temp 97.7; Pulse Ox 100% ; Weight 81.65 kg; Height 5 me1 ft. 3 in. ; Pain 10/10; 22:02 BP 117 / 62; Pulse 90; Resp 17 S; Pulse Ox 100% on R/A; lg3 23:17 BP 111 / 58; Pulse 82; Resp 17 S; Pulse Ox 99% on R/A; lg3 19:19 Body Mass Index 31.89 (81.65 kg, 160.02 cm) me1 19:19 Pain Scale: Adult me1 Mack Coma Score: 08/18 05:22 Eye Response: spontaneous(4). Motor Response: obeys commands(6). Verbal Response: sp4 oriented(5). Total: 15. MDM: 08/17 19:21 Medical Screening Exam initiated denise 22:28 ED course: Name: JONG LOAIZA Acct Number: [id number] :1975 sp4 Age:49 Sex:F Ord Phys: Levy Rothman MD Unit Number: [id number] [place] [facility] Dr: Roberto Grace MD Status: [facility] ER Exam Date: 08/17/24 EXAM: Abdominal exam Limited ultrasound CLINICAL HISTORY: Abdominal pain COMPARISON: 2022 FINDINGS: A gallstone is not seen. Gallbladder wall not thickened. Biliary tree normal caliber IMPRESSION: No significant abnormalities displayed . ED course: EXAM: CT review 08/12/2024 CTAbdomen and Pelvis With Intravenous Contrast CLINICAL HISTORY: ABD PAIN TECHNIQUE: Axial computed tomography images of the abdomen and pelvis with intravenous contrast. Sagittal and coronal reformatted images were created and reviewed. This CT exam was performed using one or more of the following dose reduction techniques: automated exposure control, adjustment of the mA and/or kV according to patient size, and/or use of iterative reconstruction technique. COMPARISON: CTAbdomen Pelvis dated 05/27/2024 FINDINGS: Lung bases: Unremarkable. No mass. No consolidation. ABDOMEN: Liver: Unremarkable. No mass. Gallbladder and bile ducts: Unremarkable. No calcified stones. No ductal dilation. Pancreas: Unremarkable. No mass. No ductal dilation. Spleen: Unremarkable. No splenomegaly. Adrenals: Unremarkable. No mass. Kidneys and ureters: Unremarkable. Normal renal cortical enhancement. No calculi. No hydronephrosis. Stomach and bowel: Colonic diverticula without adjacent inflammatory change. Small and large bowel air-fluid levels. No obstruction. No mucosal thickening. PELVIS: Appendix: Normal caliber appendix. No findings to suggest acute appendicitis. Bladder: The urinary bladder is decompressed. Reproductive: There has been a hysterectomy. No adnexal cysts or masses are identified. ABDOMEN and PELVIS: Intraperitoneal space: Unremarkable. No free air. No significant fluid collection. Bones/joints: Mild multilevel spondylosis. No acute fracture. No dislocation. Soft tissues: Small fat-containing supraumbilical and umbilical hernias. Vasculature: Unremarkable. No abdominal aortic aneurysm. Lymph nodes: Unremarkable. No enlarged lymph nodes. IMPRESSION: 1. Nonspecific small and large bowel air-fluid levels which can be seen in the clinical setting of diarrhea. 2. Other findings as above. Electronically signed by: Maira Reyes MD 08/12/2024 02:55 . ED course: Procedure: Chest Single View HISTORY: Abdominal pain COMPARISON: 2018 FINDINGS: The lungs appear clear of acute infiltrate. No significant pleural effusion noted. The heart is normal size. IMPRESSION: No acute abnormality is displayed. . 08/18 05:24 Differential diagnosis: cholecystitis, Cholelithiasis, Endometriosis, gastritis, sp4 Hepatitis. Data reviewed: vital signs, nurses notes, lab test result(s), EKG, radiologic studies, plain films, ultrasound. Consideration of Admission/Observation Escalation of care including admission/observation considered. ED course: Patient significantly improved after antiemetics and IV fluids. Stable for discharge home. Advised to discontinue Ozempic. 08/17 19:23 Order name: Basic Metabolic Panel; Complete Time: 20:50 [facility] 08/17 19:23 Order name: CBC with Diff; Complete Time: 20:50 [facility] 08/17 19:23 Order name: LFT's; Complete Time: 20:50 08/17 19:23 Order name: Magnesium; Complete Time: 20:50 08/17 19:23 Order name: NT PRO-BNP; Complete Time: 20:50 08/17 19:23 Order name: PT-INR; Complete Time: 20:50 08/17 19:23 Order name: Troponin HS; Complete Time: 20:50 denise 08/17 19:23 Order name: Urinalysis w/ reflexes; Complete Time: 20:50 [facility] 08/17 19:23 Order name: Lipase; Complete Time: 20:50 [facility] 08/17 19:23 Order name: XRAY Chest (1 view); Complete Time: 20:50 [facility] 08/17 19:24 Order name: US Abdomen Limited; Complete Time: 20:50 denise 08/17 19:23 Order name: EKG; Complete Time: 19:23 08/17 19:23 Order name: EKG - Nurse/Tech; Complete Time: 20:23 08/17 19:23 Order name: IV Saline Lock; Complete Time: 20:13 [facility] 08/17 19:23 Order name: Labs collected and sent; Complete Time: 20:13 [facility] 08/17 19:23 Order name: O2 Per Protocol; Complete Time: [facility] 08/17 19:23 Order name: O2 Sat Monitoring; Complete Time: : [facility] EC/08 20:22 Rate is 86 beats/min. Rhythm is regular, Normal Sinus Rhythm. QRS [place] is Normal. [place] sp4 interval is normal. QRS interval is normal. QT interval is normal. No Q waves. T waves are Normal. No ST changes noted. Clinical impression: Normal ECG. Interpreted by me. Reviewed by me. Administered Medications: 20:27 Drug: NS 0.9% IV 1000 ml IV at 1000 ml once; to be given as a bolus over 60 minutes lg3 Route: IV; Rate: 1000 ml; Site: left antecubital; 21:56 Follow up: Response: No adverse reaction; IV Status: Completed infusion; IV Intake: lg3 1000ml 20:27 Drug: Famotidine IVP 20 mg IVP once; dilute with 10 mL 0.9% NaCl; give over 2 minutes lg3 Route: IVP; Site: left antecubital; 21:56 Follow up: Response: No adverse reaction lg3 20:27 Drug: morphine IVP or IV 4 mg IVP once over 4 mins Route: IVP; Infused Over: 4 mins; lg3 Site: left antecubital; 21:56 Follow up: Response: No adverse reaction lg3 20:27 Drug: Ondansetron IVP 4 mg IVP once; over 2 minutes Route: IVP; Site: left antecubital; lg3 21:56 Follow up: Response: No adverse reaction lg3 21:56 Drug: metoCLOPramide IVP 10 mg IVP once; over 1 to 2 minutes Route: IVP; Site: left lg3 antecubital; 23:17 Follow up: Response: No adverse reaction; Marked relief of symptoms lg3 21:56 Drug: Diphenoxylate-Atropine PO 2 tabs PO once Route: PO; lg3 23:16 Follow up: Response: No adverse reaction; Marked relief of symptoms lg3 21:56 Drug: NS 0.9% IV 1000 ml IV at 1 bolus Per protocol; to be given as a bolus over 60 lg3 minutes Route: IV; Rate: 1 bolus; Site: left antecubital; 23:16 Follow up: Response: No adverse reaction; IV Status: Completed infusion; IV Intake: lg3 1000ml 21:57 Drug: Ondansetron IVP 4 mg IVP once; over 2 minutes Route: IVP; Site: left antecubital; lg3 23:17 Follow up: Response: No adverse reaction; Marked relief of symptoms lg3 Disposition: 08/18 05:26 Chart complete. sp4 Disposition Summary: 08/17/24 22:32 Discharge Ordered Notes: Location: Home sp4 Problem: new sp4 Symptoms: have improved sp4 Condition: Stable sp4 Diagnosis - Nausea with vomiting, unspecified sp4 - Acute medication reaction to Ozempic, Acute gastroparesis sp4 Followup: sp4 - With: Roberto Grace MD - When: 7 - 10 days - Reason: Recheck today's complaints Discharge Instructions: - Discharge Summary Sheet sp4 - Clear Liquid Diet, Adult, [id number] sp4 Forms: - Patient Portal Instructions sp4 Prescriptions: - Lomotil 2.5-0.025 mg Oral tablet - take 1 tablet ORAL route every 6 hours As needed PRN diarrhea; 30 tablet; sp4 Refills: 0, Product Selection Permitted - promethazine 25 mg Oral tablet - take 1 tablet ORAL route every 6 hours As needed PRN nausea; 30 tablet; sp4 Refills: 0, Product Selection Permitted - ondansetron 8 mg Oral Tablet,disintegrating - take 1 tablet ORAL route every 8 hours PRN nausea; 30 tablet; Refills: 0, sp4 Product Selection Permitted Signatures: Dispatcher [employer] Levy Jose MD MD cha Able, Lacie, SUZAN RN lg3 Sj Das MD MD sp4 Luci Briggs, SUZAN RN me1 Corrections: (The following items were deleted from the chart) 08/17 19:23 19:23 Abdomen Pelvis W [id number] ordered. EDMS ED
--- NOTE | 2024-08-17 22:33 | ER ---
Nurse's Notes [facility] Name: Lilliam Brar Age: 49 yrs Sex: Female : 1975 Arrival Date: 08/17/2024 Time: 19:00 Bed 18 Private MD: Diagnosis: Nausea with vomiting, unspecified;Acute medication reaction to Ozempic, Acute gastroparesis Presentation: 08/17 19:19 Chief complaint: Patient states: epigastric pain that started Friday but is worse me1 today. Increased dose of ozempic on Friday. Saw her PCP today and was told to go back to the lower dose after skipping one week. Pain level 10/10 "cramping" with nausea and diarrhea. Coronavirus screen: Vaccine status: Patient reports receiving the 2nd dose of the covid vaccine. Ebola Screen: No symptoms or risks identified at this time. Initial Sepsis Screen: Does the patient meet any 2 criteria? HR > 90 bpm. Does the patient have a suspected source of infection? No. Patient's initial sepsis screen is negative. Risk Assessment: Do you want to hurt yourself or someone else? Patient reports no desire to harm self or others. Onset of symptoms was August 16, 2024. 19:19 [place] [facility] [place] Acuity: JUNI 3 me1 Triage Assessment: 19:22 General: Appears uncomfortable, well groomed, well developed, well nourished, Behavior me1 is calm, cooperative, appropriate for age. Pain: Complains of pain in abdomen Pain currently is 10. out of 10 on a pain scale. Quality of pain is described as crampy, Pain began 1 day ago. Is continuous. EENT: No signs and/or symptoms were reported regarding the EENT system. Neuro: Level of Consciousness is awake, alert, obeys commands, Oriented to person, place, time, situation, Appropriate for age. Cardiovascular: Patient's skin is warm and dry. Respiratory: Airway is patent Respiratory effort is even, unlabored, Respiratory pattern is regular, symmetrical. GI: Abdomen is round Bowel sounds present X 4 quads. Reports upper abdominal pain, diarrhea, nausea. 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 - Infectious Disease History:: Denies. - Social history:: Smoking status: Patient denies any tobacco usage or history of. - Family history:: not pertinent. Screenin:09 [facility] ED Fall Risk Assessment (Adult) History of falling in the last 3 months, lg3 including since admission No falls in past 3 months (0 pts) Confusion or Disorientation No (0 pts) Intoxicated or Sedated No (0 pts) Impaired Gait No (0 pts) Mobility Assist Device Used No (0 pt) Altered Elimination No (0 pt) Score/Fall Risk Level 0 - 2 = Low Risk Oriented to surroundings, Maintained a safe environment, Educated pt \\T\\ family on fall prevention, incl call for assistance when getting out of bed, Assessed \\T\\ reinforced patient's understanding of fall precautions. Abuse screen: Denies threats or abuse. Denies injuries from another. Nutritional screening: No deficits noted. Tuberculosis screening: No symptoms or risk factors identified. Assessment: 20:09 General: Appears in no apparent distress. uncomfortable, Behavior is calm, cooperative. lg3 Pain: Complains of pain in epigastric area, right upper quadrant and left upper quadrant Pain currently is 8 out of 10 on a pain scale. Neuro: No deficits noted. Corey Agitation-Sedation Scale (RASS): 0 - Alert and Calm Level of Consciousness is awake, alert, obeys commands, Oriented to person, place, time, situation. Cardiovascular: No deficits noted. Denies chest pain, shortness of breath, Capillary refill < 3 seconds Clubbing of nail beds is absent JVD is absent Patient's skin is warm and dry. Respiratory: No deficits noted. Airway is patent Respiratory effort is even, unlabored, Respiratory pattern is regular, symmetrical. GI: Abdomen is round non-distended, Bowel sounds present X 4 quads. Abd is soft X 4 quads Abdomen is tender to palpation in right upper quadrant and left upper quadrant Reports upper abdominal pain, diarrhea, gaseousness, nausea, vomiting. : No signs and/or symptoms were reported regarding the genitourinary system. EENT: No deficits noted. No signs and/or symptoms were reported regarding the EENT system. Derm: No deficits noted. No signs and/or symptoms reported regarding the dermatologic system. Skin is intact, is healthy with good turgor, Skin is dry, Skin is normal, Skin temperature is warm. Musculoskeletal: No deficits noted. No signs and/or symptoms reported regarding the musculoskeletal system. Circulation, motion, and sensation intact. Range of motion: intact in all extremities. 22:02 Reassessment: Patient appears in no apparent distress at this time. No changes from lg3 previously documented assessment. Patient and/or family updated on plan of care and expected duration. Pain level reassessed. Patient is alert, oriented x 3, equal unlabored respirations, skin warm/dry/pink. Patient states feeling better. Patient states symptoms have improved. 23:16 Reassessment: Patient appears in no apparent distress at this time. No changes from lg3 previously documented assessment. Patient and/or family updated on plan of care and expected duration. Pain level reassessed. Patient is alert, oriented x 3, equal unlabored respirations, skin warm/dry/pink. Patient states feeling better. Patient states symptoms have improved. Vital Signs: 19:19 BP 109 / 55; Pulse 96; Resp 19; Temp 97.7; Pulse Ox 100% ; Weight 81.65 kg; Height 5 me1 ft. 3 in. ; Pain 10/10; 22:02 BP 117 / 62; Pulse 90; Resp 17 S; Pulse Ox 100% on R/A; lg3 23:17 BP 111 / 58; Pulse 82; Resp 17 S; Pulse Ox 99% on R/A; lg3 19:19 Body Mass Index 31.89 (81.65 kg, 160.02 cm) ma1 19:19 Pain Scale: Adult ma1 [place] Coma Score: 08/18 05:22 Eye Response: spontaneous(4). Motor Response: obeys commands(6). Verbal Response: sp4 oriented(5). Total: 15. ED Course: 08/17 19:02 Patient arrived in ED. mr 19:21 Levy Rothman MD is Attending Physician. [facility] 19:22 Triage completed. ma1 19:22 Arm band placed on Patient placed in an exam room. ma1 19:27 Radiology exam delayed due to lab results not completed at this time. (BUN/Creatinine) nj IV insertion attempt and/or patient not having appropriate IV at this time. 19:52 US Abdomen Limited In Process Unspecified. EDMS 19:55 XRAY Chest (1 view) In Process Unspecified. EDMS 20:06 Attending Physician role handed off by Levy Rothman MD sp4 20:06 Sj Das MD is Attending Physician. sp4 20:09 Patient has correct armband on for positive identification. Placed in gown. Bed in low lg3 position. Call light in reach. Side rails up X 1. Client placed on continuous cardiac and pulse oximetry monitoring. NIBP monitoring applied. Door closed. Noise minimized. Warm blanket given. Pillow given. Family accompanied patient. 20:09 Patient maintains SpO2 saturation greater than 95% on room air. lg3 20:12 Inserted saline lock: 20 gauge in left antecubital area, using aseptic technique. Blood rk3 collected. Flushed with 10 mL NS. 20:28 Radiology exam delayed due to lab results not completed at this time. (BUN/Creatinine). nj 21:41 Maria Del Carmen Feng, RN is Primary Nurse. lg3 22:30 Roberto Grace MD is Referral Physician. sp4 23:17 No provider procedures requiring assistance completed. IV discontinued, intact, lg3 bleeding controlled, No redness/swelling at site. Pressure dressing applied. Administered Medications: 20:27 Drug: NS 0.9% IV 1000 ml IV at 1000 ml once; to be given as a bolus over 60 minutes lg3 Route: IV; Rate: 1000 ml; Site: left antecubital; 21:56 Follow up: Response: No adverse reaction; IV Status: Completed infusion; IV Intake: lg3 1000ml 20:27 Drug: Famotidine IVP 20 mg IVP once; dilute with 10 mL 0.9% NaCl; give over 2 minutes lg3 Route: IVP; Site: left antecubital; 21:56 Follow up: Response: No adverse reaction lg3 20:27 Drug: morphine IVP or IV 4 mg IVP once over 4 mins Route: IVP; Infused Over: 4 mins; lg3 Site: left antecubital; 21:56 Follow up: Response: No adverse reaction lg3 20:27 Drug: Ondansetron IVP 4 mg IVP once; over 2 minutes Route: IVP; Site: left antecubital; lg3 21:56 Follow up: Response: No adverse reaction lg3 21:56 Drug: metoCLOPramide IVP 10 mg IVP once; over 1 to 2 minutes Route: IVP; Site: left lg3 antecubital; 23:17 Follow up: Response: No adverse reaction; Marked relief of symptoms lg3 21:56 Drug: Diphenoxylate-Atropine PO 2 tabs PO once Route: PO; lg3 23:16 Follow up: Response: No adverse reaction; Marked relief of symptoms lg3 21:56 Drug: NS 0.9% IV 1000 ml IV at 1 bolus Per protocol; to be given as a bolus over 60 lg3 minutes Route: IV; Rate: 1 bolus; Site: left antecubital; 23:16 Follow up: Response: No adverse reaction; IV Status: Completed infusion; IV Intake: lg3 1000ml 21:57 Drug: Ondansetron IVP 4 mg IVP once; over 2 minutes Route: IVP; Site: left antecubital; lg3 23:17 Follow up: Response: No adverse reaction; Marked relief of symptoms lg3 Medication: 22:02 VIS not applicable for this client. lg3 Intake: 21:56 IV: 1000ml; Total: 1000ml. lg3 23:16 IV: 1000ml; Total: 2000ml. lg3 Outcome: 22:32 Discharge ordered by MD. bryant 23:17 Discharged to home ambulatory, with family, lg3 23:17 Condition: stable 23:17 Discharge instructions given to patient, Instructed on discharge instructions, follow up and referral plans. medication usage, Demonstrated understanding of instructions, follow-up care, medications, Prescriptions given X 3, 23:18 Patient left the ED. lg3 Signatures: Dispatcher [employer] Levy Jose MD MD cha Rivera Mary Anne, [facility] Reg mr KamaraMarvin Lacie RN RN lg3 Sj Das MD MD sp4 Luci Briggs RN RN ma1 Mike Reyes 3
[2024-08-18 00:15] VITALS: TEMP 97.7
[2024-08-18 00:19] VITALS: BP 111/58; O2SAT 99
--- NOTE | 2024-08-18 11:57 | EKG ---
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
== END 2024-08-17 23:18 | disposition home or self-care (01) ==
LOC: ER 19:00
DX: R11.2 Nausea with vomiting, unspecified (principal); T38.3X5A Adverse effect of insulin and oral hypoglycemic [antidiabetic] drugs, initial encounter; K31.84 Gastroparesis; Z95.818 Presence of other cardiac implants and grafts
CPT/HCPCS: 96361; 93005; 85025; 81001; 80048; 36415; 83735; 85610; 80076; 84484; 83690; 83880; 71045; 76705; 96375; 96374; 99284; J2765; J2405 ×2; J7030 ×2

== ENCOUNTER 2024-12-18 16:54 | Emergency (ER) | payer OTHER ==
[2024-12-18 17:52] LABS: Absolute Lymphocytes (CBC) 1.1 K/uL (0.7-4.9); Hematocrit 39.0 % (36.0-45.0); Hemoglobin 13.1 g/dL (12.0-15.0); MCH 30.7 pg (27.0-35.0); MCHC 33.6 g/dL (32.0-36.0); MCV 91.1 fL (80-100); MPV 8.9 fL (7.6-11.3); Nucleated RBC Absolute Count 0.0 (0-0); Nucleated Red Blood Cells % 0.1 % (0-0); RBC Red Blood Cell Count 4.28 M/uL (3.86-4.86); White Blood Count 7.50 thou/uL (4.3-10.9)
[2024-12-18 18:13] LABS: ALT/SGPT 41.0 U/L (13-56); AST/SGOT 28.0 U/L (15-37); Albumin 4.0 g/dL (3.4-5.0); Albumin/Globulin Ratio 0.9 (1.1-1.8); Alkaline Phosphatase 89.0 U/L (45-117); Anion Gap 7.8 mEq/L (5.0-15.0); BUN Blood Urea Nitrogen 14.0 mg/dL (7-18); Globulin 4.7 g/dL (2.3-3.5); Glucose Level 151.0 mg/dL (74-106); Lipase 16.0 U/L (13-75); Potassium 3.8 mEq/L (3.5-5.1)
--- NOTE | 2024-12-18 18:25 | RAD REPORT ---
EXAMINATION: CT Stone Protocol CLINICAL INDICATION: Female, 49 years old. FLANK PAIN TECHNIQUE: CT abdomen and pelvis was performed, without IV contrast, as per department protocol. Axia l, sagittal and coronal reconstructions were obtained. One or more of the following dose reduction techniques were used: Automated exposure control, adjustment of the mA and kV according to the patien t size, and iterative reconstruction. Unless otherwise specified, incidental findings do not require dedicated imaging follow-up. COMPARISON: 08/12/2024. FINDINGS: The lack of intravenous contrast limits the sensitivity of this exam for evaluation of solid visceral organs, vascular structures, and retroperitoneum. LOWER CHEST: The visualized lung bases are clear. LIVER: Normal in size and contour. No focal lesion. BILIARY SYSTEM: No suspicious abnormalities. SPLEEN: Normal size. No focal lesion. PANCREAS: No mass, ductal dilation, or denisse-pancreatic fluid. ADRENALS: Normal; no mass. KIDNEYS AND URETERS: Normal size and contour. No hydronephrosis. URINARY BLADDER: Normal contour. GASTROINTESTINAL TRACT: No evidence of bowel obstruction, significant free fluid, free air or abscess . Mild colonic diverticulosis. APPENDIX: Appendix not visualized, but no inflammatory changes in region of appendix. LYMPH NODES: No lymphadenopathy. MUSCULOSKELETAL: No acute or suspicious osseous abnormality. ADDITIONAL FINDINGS: Small umbilical hernia containing fat. IMPRESSION: No acute or concerning abnormalities in the abdomen or pelvis, with evaluation limited by lack of IV contrast. Incidental findings as above.
[2024-12-18 18:31] LABS: Sqamous Epithelial <5 /HPF (None Seen); Urine Culture Reflex Order NOT NEEDED; Urine Microscopic Reflex YN ORDER UMIC
--- NOTE | 2024-12-18 19:16 | ER ---
Nurse's Notes [facility] Name: Lilliam Brar Age: 49 yrs Sex: Female : 1975 Arrival Date: 12/18/2024 Time: 16:54 Bed 12 Private MD: Diagnosis: Flank pain Presentation: 12/18 17:05 Chief complaint: Patient states: R flank pain with some nausea for a few days. ll1 Coronavirus screen: Client denies travel out of the [place] in the last 14 days. At this time, the client does not indicate any symptoms associated with coronavirus-19. Ebola Screen: Patient denies travel to an Ebola-affected area in the 21 days before illness onset. Initial Sepsis Screen: Does the patient meet any 2 criteria? No. Patient's initial sepsis screen is negative. Does the patient have a suspected source of infection? No. Patient's initial sepsis screen is negative. Risk Assessment: Do you want to hurt yourself or someone else? Patient reports no desire to harm self or others. 17:05 Method Of Arrival: Ambulatory 1 17:05 Acuity: JUNI 3 ll1 17:08 Onset of symptoms was December 16, 2024. 1 Triage Assessment: 17:05 General: Appears uncomfortable, Behavior is calm, cooperative, appropriate for age. ll1 Pain: Complains of pain in R flank. GI: Reports upper abdominal pain, nausea. : Reports pain in right flank(s). Historical: - Allergies: 17:04 shrimp; ll1 - PMHx: 17:04 CAD; diabetes mellitus; ectopic ; Hypothyroidism; Lupus; Hypertension; ll1 - PSHx: 17:04 cardiac stent; section; hysterectomy; ll1 17:09 Lithotripsy; ll1 - Immunization history:: Adult Immunizations up to date. - Infectious Disease History:: Denies. - Social history:: Smoking status: Patient denies any tobacco usage or history of. Screenin:24 [facility] ED Fall Risk Assessment (Adult) History of falling in the last 3 months, vc1 including since admission No falls in past 3 months (0 pts) Confusion or Disorientation No (0 pts) Intoxicated or Sedated No (0 pts) Impaired Gait No (0 pts) Mobility Assist Device Used No (0 pt) Altered Elimination No (0 pt) Score/Fall Risk Level 0 - 2 = Low Risk. Abuse screen: Denies threats or abuse. Nutritional screening: No deficits noted. Tuberculosis screening: No symptoms or risk factors identified. Assessment: 17:37 Reassessment: No changes from previously documented assessment. Patient and/or family ll1 updated on plan of care and expected duration. Pain level reassessed. 19:26 GI: vc1 Vital Signs: 17:08 BP 156 / 96; Pulse 84; Resp 17; Temp 98.3; Pulse Ox 99% ; Weight 90.72 kg; Height 5 ft. ll1 3 in. ; Pain 7/10; 17:08 Body Mass Index 35.43 (90.72 kg, 160.02 cm) ll1 17:08 Pain Scale: Adult ll1 ED Course: 16:59 Patient arrived in ED. cj3 17:02 Zabrina Flores FNP-C is PHCP. kb 17:02 Manas Goldsmith is Attending Physician. kb 17:04 Arm band placed on. ll1 17:06 Triage completed. ll1 17:36 Initial lab(s) drawn, by ma, sent to lab. Inserted saline lock: 22 gauge in left ll1 antecubital area, using aseptic technique. Blood collected. Flushed with 10 mL NS. 17:49 CT Stone Protocol In Process Unspecified. EDMS 18:13 UA Rfx Lex Cult if indicated Sent. ll1 19:24 Patient has correct armband on for positive identification. Provided Education on: vc1 Educated on medication. . 19:24 No provider procedures requiring assistance completed. IV discontinued, intact, vc1 bleeding controlled, No redness/swelling at site. Pressure dressing applied. Administered Medications: No medications were administered Medication: 19:27 VIS not applicable for this client. vc1 Outcome: 19:15 Discharge ordered by . kb 19:24 Discharged to home ambulatory, vc1 19:24 Condition: stable 19:24 Discharge instructions given to patient, Instructed on discharge instructions, follow up and referral plans. medication usage, Demonstrated understanding of instructions, follow-up care, medications, Prescriptions given X 1, 19:27 Patient left the ED. vc1 Signatures: Dispatcher [employer] EDRI Zabrina Flores FNP-C FNP-Ckb Lewis, Lynsay, RN RN ll1 Rossi Gupta RN RN vc1 Lorena Guerra cj3 Corrections: (The following items were deleted from the chart) 17:09 17:05 Chief complaint: Patient states: R flank pain with some N/V for a few days. ll1 ll1
--- NOTE | 2024-12-18 19:16 | EDPHYS ---
Physician Documentation [facility] Name: Lilliam Brar Age: 49 yrs Sex: Female : 1975 Arrival Date: 12/18/2024 Time: 16:54 Bed 12 Private MD: ED Physician Manas Goldsmith HPI: 12/18 21:24 This 49 yrs old Female presents to ER via Ambulatory with complaints of Flank kb Pain - RT, Abdominal Pain - LOWER, Back Pain - LOWER. 21:24 Pt is a 49 year old female who presents for right flank and lateral abd pain that kb started 5 days ago. Reports nausea and vomiting. Denies diarrhea. fever. States she has been having inflammation due to lupus so she started prednisone today. . Historical: - Allergies: 17:04 shrimp; ll1 - PMHx: 17:04 CAD; diabetes mellitus; ectopic ; Hypothyroidism; Lupus; Hypertension; ll1 - PSHx: 17:04 cardiac stent; section; hysterectomy; ll1 17:09 Lithotripsy; ll1 - Immunization history:: Adult Immunizations up to date. - Infectious Disease History:: Denies. - Social history:: Smoking status: Patient denies any tobacco usage or history of. ROS: 21:23 Constitutional: As per HPI kb Exam: 21:23 Constitutional: This is a well developed, well nourished patient who is awake, alert, kb and in no acute distress. Head/Face: Normocephalic, atraumatic. ENT: Moist Mucous membranes Cardiovascular: Regular rate Respiratory: Respirations even and unlabored. No increased work of breathing. Talking in full sentences Skin: Warm, dry with normal turgor. Normal color. MS/ Extremity: Pulses equal, no cyanosis. Neurovascular intact. Full, normal range of motion. Neuro: Awake and alert, GCS 15, oriented to person, place, time, and situation. 21:23 Abdomen/GI: Inspection: abdomen appears normal, Bowel sounds: normal, Palpation: soft, in all quadrants, mild abdominal tenderness, in the posterior aspect of right lateral abdomen and anterior aspect of right lateral abdomen, 21:23 Back: CVA tenderness, that is mild, is noted on the right, Vital Signs: 17:08 BP 156 / 96; Pulse 84; Resp 17; Temp 98.3; Pulse Ox 99% ; Weight 90.72 kg; Height 5 ft. ll1 3 in. ; Pain 7/10; 17:08 Body Mass Index 35.43 (90.72 kg, 160.02 cm) ll1 17:08 Pain Scale: Adult ll1 MDM: 17:02 Medical Screening Exam initiated kb 21:24 Differential diagnosis: nephrolithiasis, pyelonephritis, UTI, cholecystitis, kb cholelithiasis. Data reviewed: vital signs, nurses notes. Counseling: I had a detailed discussion with the patient and/or guardian regarding the historical points, exam findings, and any diagnostic results supporting the discharge/admit diagnosis, lab results, radiology results, the need for outpatient follow up, a family practitioner, to return to the emergency department if symptoms worsen or persist or if there are any questions or concerns that arise at home. 12/18 17:07 Order name: CBC with Diff; Complete Time: 17:58 kb 12/18 17:07 Order name: CMP; Complete Time: 18:14 kb 12/18 17:07 Order name: Lipase; Complete Time: 18:14 kb 12/18 17:07 Order name: UA Rfx Lex Cult if indicated; Complete Time: 18:33 kb 12/18 17:07 Order name: CT Stone Protocol; Complete Time: 18:29 kb 12/18 17:07 Order name: IV Saline Lock; Complete Time: 17:36 kb 12/18 17:07 Order name: Labs collected and sent; Complete Time: 17:36 kb Administered Medications: No medications were administered Disposition Summary: 12/18/24 19:15 Discharge Ordered Notes: Location: Home kb Condition: Stable kb Diagnosis - Flank pain kb Followup: kb - With: Emergency Department - When: As needed - Reason: Worsening of condition Followup: kb - With: Private Physician - When: 2 - 3 days - Reason: Recheck today's complaints, Continuance of care, Re-evaluation by your physician Discharge Instructions: - Discharge Summary Sheet kb - Flank Pain, Adult, [id number] kb Forms: - Medication Reconciliation Form kb - Antibiotic Education kb - Prescription Opioid Use kb - Patient Portal Instructions kb - Leadership Thank You Letter kb Prescriptions: - ondansetron 4 mg Oral Tablet,disintegrating - take 1 tablet ORAL route every 6 hours as needed for nausea and vomiting; 12 kb tablet; Refills: 0, Product Selection Permitted Signatures: Dispatcher [employer] EDMS Zabrina Flores, [employer] Oriana Montelongo RN RN ll1 Rossi Gupta RN RN vc1 Corrections: (The following items were deleted from the chart) 17: 17:08 CBC+H.LAB.BRZ ordered. EDMS EDMS 17: 17:08 COMPREHENSIVE METABOLIC PANEL+C.LAB.BRZ ordered. EDMS EDMS 17: 17:08 LIPASE+C.LAB.BRZ ordered. EDMS EDMS 17: 17:08 UA Rfx Lex Cult if indicated+U.LAB.BRZ ordered. EDMS EDMS 21:26 21:24 Pt is a 49 year old female who presents for right flank and lateral abd pain that kb started 5 days ago. kb
[2024-12-18 20:16] VITALS: BP 156/96; TEMP 98.3; O2SAT 99
== END 2024-12-18 19:27 | disposition home or self-care (01) ==
LOC: ER 16:54
DX: R10.31 Right lower quadrant pain (principal); R11.2 Nausea with vomiting, unspecified
CPT/HCPCS: 36415; 74176; 76377; 80053; 81001; 83690; 85025; 99284